=== PATIENT | female | born 1960 | race African-American/Black ===

== ENCOUNTER 2017-04-05 16:19 | Emergency (ER) | payer MEDICAID ==
--- NOTE | 2017-04-05 16:43 | ER Document Report ---
ED General - General Stated Complaint: POSSIBLE SEIZURE Time Seen by Provider: 04/05/17 16:27 Mode of Arrival: Medic Information source: Patient, Relative Notes: This is a 56-year-old female with a history of metastatic colon CA (currently receiving chemotherapy: Dr. Coon) and is brought in by EMS after possible seizure. Patient was with her friend at the time and states that patient was visiting her was sitting down talking and having a munir when the patient developed sweating and then started shaking and was unresponsive for 30-40 seconds. The patient's friend states that the patient was confused afterwards but that gradually cleared. They called EMS. Denies any headache, fever, chills, nausea vomiting. The patient's friend states they were having a stressful conversation beforehand TRAVEL OUTSIDE OF THE [place] IN LAST 30 DAYS: No - HPI Onset: Just prior to arrival Onset/Duration: Sudden Quality of pain: No pain Severity: None Pain Level: Denies Associated symptoms: denies: Chest pain, Fever, Shortness of breath Exacerbated by: Denies Relieved by: Denies Similar symptoms previously: No Recently seen / treated by doctor: Yes - Related Data Allergies/Adverse Reactions: No Known Allergies Allergy (Verified 05/25/16 03:36) Past Medical History - General Information source: Patient - Social History Smoking Status: Never Smoker Cigarette use (# per day): No Chew tobacco use (# tins/day): No Frequency of alcohol use: None Drug Abuse: None Lives with: Family Family History: Reviewed & Not Pertinent Patient has suicidal ideation: No Patient has homicidal ideation: No - Past Medical History Cardiac Medical History: Reports: Hx Hypertension Denies: Hx Coronary Artery Disease, Hx Heart Attack Pulmonary Medical History: Denies: Hx Asthma, Hx Bronchitis, Hx COPD, Hx Pneumonia Neurological Medical History: Reports: Hx Seizures. Denies: Hx Cerebrovascular Accident Musculoskeltal Medical History: Denies Hx Arthritis Past Surgical History: Reports: Hx Section, Hx Kidney (Renal Surgery) - stents. Denies: Hx Hysterectomy - Immunizations Immunizations up to date: No Hx Diphtheria, Pertussis, Tetanus Vaccination: No Review of Systems - Review of Systems Constitutional: denies: Chills, Fever EENT: No symptoms reported Cardiovascular: No symptoms reported Respiratory: No symptoms reported Gastrointestinal: No symptoms reported Genitourinary: No symptoms reported Female Genitourinary: No symptoms reported Musculoskeletal: No symptoms reported Skin: No symptoms reported Hematologic/Lymphatic: No symptoms reported Neurological/Psychological: See HPI Physical Exam - Vital signs Vitals: Temp 98.7 F 04/05/17 16:27 Notes: Physical exam: GENERAL: 6-year-old female, alert and oriented 3, no acute distress HEAD: Atraumatic, normocephalic. EYES: Pupils equal round and reactive to light, extraocular movements intact, sclera anicteric, conjunctiva are normal. ENT: TMs normal, nares patent, oropharynx clear without exudates. Moist mucous membranes. NECK: Normal range of motion, supple without lymphadenopathy or JVD. LUNGS: Breath sounds clear to auscultation bilaterally and equal. No wheezes rales or rhonchi. HEART: Regular rate and rhythm without murmurs, rubs or gallops. ABDOMEN: Soft, normoactive bowel sounds. His abdomen is distended which is normal for her. There are palpable masses. There is no tenderness palpation o guarding, EXTREMITIES: Normal range of motion, no pitting or edema. No clubbing or cyanosis. NEUROLOGICAL: Cranial nerves II through XII grossly intact. Normal speech, moving all extremities PSYCH: Normal mood, normal affect. SKIN: Warm, Dry, normal turgor, no rashes or lesions noted. Course - Re-evaluation Re-evalutation: 04/05/17 20:[address] Coon is requested an MRI of the brain. The MRI looks good at this point. Patient was given ceftriaxone for a UTI and I will switch her Augmentin (which she was getting her sinus infection) to Cefdenir so that there is coverage for UTI. Magnesium level was 1.5 and she will receive IV magnesium before discharge. The patient has an appointment with Dr. Coon on Friday. - Vital Signs Vital signs: Temp Pulse Resp BP Pulse Ox 98.7 F 23 H 118/86 H 100 04/05/17 16:27 04/05/17 22:01 04/05/17 22:01 04/05/17 22:01 - Laboratory Result Diagrams: 04/05/17 16:45 04/05/17 16:45 Laboratory results interpreted by me: 04/05/17 04/05/17 04/05/17 16:45 16:45 17:18 WBC 18.6 H MCHC 31.5 L RDW 16.5 H Seg Neuts % (Manual) 84 H Lymphocytes % (Manual) 12 L Abs Neuts (Manual) 15.6 H Carbon Dioxide 21 L Est GFR (Non-Af Amer) 58 L Magnesium 1.5 L AST 10 L Urine Protein 100 H Urine Glucose (UA) 50 H Urine Blood LARGE H Ur Leukocyte Esterase MODERATE H Discharge - Discharge Clinical Impression: Seizure, Hypomagnesemia UTI (urinary tract infection) Qualifiers: Urinary tract infection type: acute cystitis Hematuria presence: with hematuria Qualified Code(s): N30.01 - Acute cystitis with hematuria Condition: Stable Disposition: HOME, SELF-CARE Instructions: Urinary Tract Infection ([facility]) Additional Instructions: Given IV ceftriaxone for UTI in the ER. Brain MRI and head CT looked good. The urine analysis showed a urine infection. The labs were relatively good, you did have a low magnesium. Given IV magnesium in the emergency room. Dr. Coon was made aware of your ER visit and she will be expecting to see you this week. Indications: Stop Taking the Augmentin. Start new antibiotic tomorrow. Up with Dr. Coon is planned for Friday The emergency room for any problems If you have any further episodes like this, you may require an antiepileptic medicine(and anti-seizure medicine). Prescriptions: Cefdinir [Omnicef 300 mg Capsule] 1 cap PO BID #14 capsule
--- NOTE | 2017-04-05 17:21 | RADIOLOGY REPORT (SQ) ---
EXAM DESCRIPTION: CT HEAD WITHOUT COMPLETED DATE/TIME: 04/05/2017 5:02 pm REASON FOR STUDY: seizure COMPARISON: 04/14/2016 TECHNIQUE: Axial images acquired through the brain without intravenous contrast. Images reviewed wi th bone, brain and subdural windows. Images stored on PACS. All CT scanners at this facility use dose modulation, iterative reconstruction, and/or weight based d osing when appropriate to reduce radiation dose to as low as reasonably achievable (ALARA). [facility]: Dose Right [facility]: CareDose [facility]: Dose Right [facility]: Teradose 4D [facility]: [employer] RADIATION DOSE: Up-to-date CT equipment and radiation dose reduction techniques were employed. CTDIv ol: 64.6 mGy. DLP: 1163 mGy-cm. mGy. LIMITATIONS: None. FINDINGS: VENTRICLES: Normal size and contour. CEREBRUM: No masses. No hemorrhage. No midline shift. Normal sherwood/white matter differentiation. N o evidence for acute infarction. CEREBELLUM: No masses. No hemorrhage. No alteration of density. No evidence for acute infarction. EXTRAAXIAL SPACES: No fluid collections. No masses. ORBITS AND GLOBE: No intra- or extraconal masses. Normal contour of globe without masses. CALVARIUM: No fracture. PARANASAL SINUSES: No fluid or mucosal thickening. Re- demonstration of chronic right-sided mastoid effusion. SOFT TISSUES: No mass or hematoma. OTHER: Incidental note is made of atherosclerotic vascular calcifications within the cavernous segmen ts of the internal carotid arteries. IMPRESSION: Stable CT appearance of the brain. No evidence of acute intracranial abnormality. TECHNICAL DOCUMENTATION: JOB ID: [id number] Quality ID # [id number]: Final reports with documentation of one or more dose reduction techniques (e.g., Au tomated exposure control, adjustment of the mA and/or kV according to patient size, use of iterative reconstruction technique) 2010 [employer]- All Rights Reserved
[2017-04-05 17:23] LABS: HEMATOCRIT 38.9 % (36.0-47.0); HEMOGLOBIN 12.2 g/dL (12.0-15.5); HGB HCT DIFFERENCE -2.3; MEAN CORPUSCULAR HEMOGLOBIN 27.5 pg (27.0-33.4); MEAN CORPUSCULAR HGB CONC 31.5 g/dL (32.0-36.0); MEAN CORPUSCULAR VOLUME 87 fl (80-97); RED BLOOD COUNT 4.46 10^6/uL (3.72-5.28); RED CELL DISTRIBUTION WIDTH 16.5 % (11.5-14.0); WHITE BLOOD COUNT 18.6 10^3/uL (4.0-10.5)
--- NOTE | 2017-04-05 17:38 | RADIOLOGY REPORT (SQ) ---
EXAM DESCRIPTION: CHEST SINGLE VIEW COMPLETED DATE/TIME: 04/05/2017 5:05 pm REASON FOR STUDY: seizure COMPARISON: None. EXAM PARAMETERS: NUMBER OF VIEWS: One view. TECHNIQUE: Single frontal radiographic view of the chest acquired. RADIATION DOSE: NA LIMITATIONS: None. FINDINGS: LUNGS AND PLEURA: No opacities, masses or pneumothorax. No pleural effusion. The left hem idiaphragm is slightly elevated. MEDIASTINUM AND HILAR STRUCTURES: No masses. Contour normal. HEART AND VASCULAR STRUCTURES: Heart normal in size. Normal vasculature. BONES: No acute findings. HARDWARE: A left anterior chest wall Port-A-Cath appears stable in position, terminating in the regio n of the superior vena cava. OTHER: No other significant finding. IMPRESSION: NO ACUTE RADIOGRAPHIC FINDING IN THE CHEST. TECHNICAL DOCUMENTATION: JOB ID: [id number]
[2017-04-05 17:45] LABS: ALANINE AMINOTRANSFERASE 15 U/L (9-52); ALBUMIN 3.6 g/dL (3.5-5.0); ALKALINE PHOSPHATASE 93 U/L (38-126); ANION GAP 13 (5-19); ASPARTATE AMINO TRANSFERASE 10 U/L (14-36); BILIRUBIN,DIRECT 0.3 mg/dL (0.0-0.4); BILIRUBIN,TOTAL 0.7 mg/dL (0.2-1.3); BLOOD UREA NITROGEN 19 mg/dL (7-20); CALCIUM 9.1 mg/dL (8.4-10.2); CARBON DIOXIDE 21 mmol/L (22-30); CHLORIDE 107 mmol/L (98-107); CREATININE RESULT 0.98 mg/dL (0.52-1.25); GLUCOSE 81 mg/dL (75-110); MAGNESIUM 1.5 mg/dL (1.6-2.3); POTASSIUM 3.7 mmol/L (3.6-5.0); SODIUM 140.7 mmol/L (137-145); TOTAL PROTEIN 6.8 g/dL (6.3-8.2)
[2017-04-05 17:46] LABS: ALCOHOL < 10 mg/dL (NONE DETECTED); BASOPHILS % (MANUAL) 0 % (0-2); EOSINOPHILS % (MANUAL) 1 % (0-6); LYMPHOCYTES % (MANUAL) 12 % (13-45); TOTAL CELLS COUNTED 100
[2017-04-05 17:48] LABS: ANISOCYTOSIS 1+; HYPOCHROMASIA SLIGHT; OVALOCYTES SLIGHT; POIKILOCYTOSIS SLIGHT
[2017-04-05 17:49] LABS: TEAR DROP CELLS SLIGHT
[2017-04-05 18:15] LABS: APPEARANCE,URINE CLOUDY; BILIRUBIN,URINE NEGATIVE (NEGATIVE); GLUCOSE, URINE 50 mg/dL (NEGATIVE); KETONES,URINE NEGATIVE (NEGATIVE); LEUKOCYTE ESTERASE,URINE MODERATE (NEGATIVE); NITRITE,URINE NEGATIVE (NEGATIVE); PROTEIN,URINE 100 mg/dL (NEGATIVE); URINE SPECIFIC GRAVITY 1.023; UROBILINOGEN,URINE NEGATIVE mg/dL (<2.0)
[2017-04-05 18:26] LABS: BACTERIA,URINE 1+ /HPF; RBC,URINE >100 /HPF
[2017-04-05] MEDS ORDERED: CEFTRIAXONE 1 GM/D5W RTU 50 ML IV ONE (18:55)
--- NOTE | 2017-04-05 20:38 | RADIOLOGY REPORT (SQ) ---
EXAM DESCRIPTION: MRI HEAD COMBO COMPLETED DATE/TIME: 04/05/2017 8:22 pm REASON FOR STUDY: colon cancer, new seizure COMPARISON: Noncontrast head CT 04/05/2017 TECHNIQUE: Multiplanar imaging includes noncontrasted T1, T2, FLAIR, and Diffusion with ADC map seq uences. Contrast enhanced T1 images. Images stored on PACS. CONTRAST TYPE AND DOSE: 15 mL MultiHance RENAL FUNCTION: Creatinine 0.98 ; GFR greater than 60 LIMITATIONS: None. FINDINGS: ANATOMY: No anomalies. Normal vascular flow voids. Pituitary fossa normal. CSF SPACES: Normal size and contour. No hemorrhage. CEREBRUM: A few high-signal intensity lesions scattered throughout the white matter on FLAIR imaging with distribution suggesting chronic microvascular ischemic change. Sulci and gyri normal in size and contour. No evidence of hemorrhage, mass or extraaxial fluid collection. No enhancing lesions. POSTERIOR FOSSA: No signal alteration. No hemorrhage. No edema, masses or mass effect. Internal audit ory canals, cerebello-pontine angles normal. Re- demonstration of chronic right mastoid effusion. DIFFUSION: Negative for acute or subacute infarction. ORBITS: No masses. Globes normal. PARANASAL SINUSES: No fluid levels. Mucosa normal. OTHER: No other significant finding. IMPRESSION: NO ENHANCING LESIONS. MINIMAL MICROVASCULAR ISCHEMIC CHANGE. OTHERWISE NORMAL STUDY. TECHNICAL DOCUMENTATION: JOB ID: [id number]- All Rights Reserved
[2017-04-05] MEDS: MAGNESIUM SULFATE/D5W 100 ML IV SCH ×2 (21:01→21:58)
[2017-04-05 23:25] VITALS: BP 127/89
== END 2017-04-05 23:31 | disposition home or self-care (01) ==
LOC: ER 16:19
DX: N30.01 Acute cystitis with hematuria (principal); R56.9 Unspecified convulsions; E83.42 Hypomagnesemia; Z85.038 Personal history of other malignant neoplasm of large intestine; Z79.899 Other long term (current) drug therapy
CPT/HCPCS: 99285; 96375; 96365; 96367; 36415; 80307; 83735; 85025; 80053; 81001; 70553; 71010; 70450; A9577; J3475; J0696

== ENCOUNTER 2017-06-21 15:45 | Inpatient (IN) | payer MEDICAID ==
[2017-06-21] MEDS ORDERED: NORMAL SALINE 1000 ML 1,000 ML IV ONE ×2 (16:01→17:49)
--- NOTE | 2017-06-21 16:03 | ER Document Report ---
ED Medical Screen (RME) - General Chief Complaint: Fainting Stated Complaint: FAINTED Time Seen by Provider: 06/21/17 16:00 Mode of Arrival: Wheelchair Information source: Patient, Relative TRAVEL OUTSIDE OF THE [place] IN LAST 30 DAYS: No - HPI Patient complains to provider of: syncope Onset: This afternoon - pt with syncopal episode earlier this afternoon while in the shower. She feels much better now, just "a little shaky." Pt. received chemo yesterday for colon ca - Related Data Allergies/Adverse Reactions: No Known Allergies Allergy (Verified 06/21/17 15:55) Past Medical History - Past Medical History Cardiac Medical History: Reports: Hx Hypertension Denies: Hx Coronary Artery Disease, Hx Heart Attack Pulmonary Medical History: Denies: Hx Asthma, Hx Bronchitis, Hx COPD, Hx Pneumonia Neurological Medical History: Reports: Hx Seizures. Denies: Hx Cerebrovascular Accident Renal/ Medical History: Denies: Hx Peritoneal Dialysis Musculoskeltal Medical History: Denies Hx Arthritis Past Surgical History: Reports: Hx Section, Hx Kidney (Renal Surgery) - stents. Denies: Hx Hysterectomy - Immunizations Immunizations up to date: No Hx Diphtheria, Pertussis, Tetanus Vaccination: No Physical Exam - Vital signs Vitals: Temp Pulse Resp BP Pulse Ox 98.9 F 98 20 131/94 H 94 06/21/17 15:56 06/21/17 15:56 06/21/17 15:56 06/21/17 15:56 06/21/17 15:56 Course - Vital Signs Vital signs: Temp Pulse Resp BP Pulse Ox 98.9 F 98 20 131/94 H 94 06/21/17 15:56 06/21/17 15:56 06/21/17 15:56 06/21/17 15:56 06/21/17 15:56
[2017-06-21 16:29] LABS: HEMATOCRIT 39.6 % (36.0-47.0); HEMOGLOBIN 12.7 g/dL (12.0-15.5); HGB HCT DIFFERENCE -1.5; MEAN CORPUSCULAR HGB CONC 32.2 g/dL (32.0-36.0); MEAN CORPUSCULAR VOLUME 87 fl (80-97); RED BLOOD COUNT 4.55 10^6/uL (3.72-5.28); WHITE BLOOD COUNT 17.6 10^3/uL (4.0-10.5)
[2017-06-21 16:41] LABS: ALANINE AMINOTRANSFERASE 11 U/L (9-52); ALBUMIN 4.1 g/dL (3.5-5.0); ALKALINE PHOSPHATASE 126 U/L (38-126); ANION GAP 16 (5-19); ASPARTATE AMINO TRANSFERASE 11 U/L (14-36); BILIRUBIN,DIRECT 0.3 mg/dL (0.0-0.4); BILIRUBIN,TOTAL 0.7 mg/dL (0.2-1.3); BLOOD UREA NITROGEN 26 mg/dL (7-20); CALCIUM 9.7 mg/dL (8.4-10.2); CARBON DIOXIDE 23 mmol/L (22-30); CHLORIDE 102 mmol/L (98-107); CREATININE RESULT 0.98 mg/dL (0.52-1.25); GLUCOSE 95 mg/dL (75-110); TOTAL PROTEIN 7.2 g/dL (6.3-8.2)
[2017-06-21 16:43] LABS: CREATINE KINASE < 20 U/L (30-135)
--- NOTE | 2017-06-21 16:52 | ER Document Report ---
ED General - General Chief Complaint: Fainting Stated Complaint: FAINTED Time Seen by Provider: 06/21/17 16:00 Mode of Arrival: Wheelchair TRAVEL OUTSIDE OF THE [place] IN LAST 30 DAYS: No - HPI Notes: Patient is a 56-year-old female with history of colon cancer and hypertension who presents the ED with a possible syncopal episode prior to arrival. Patient states that she did have a chemo session 2 days ago, but has been feeling all right since then. Patient states that she was outside when she started feeling dizzy & chilled. Patient then went up to her bathroom to take a shower when she got even more dizzy and believes she may have lost consciousness. Patient states that she remembers starting to go down and then yelling for help thereafter. Patient was sitting against her tub. Pt is not aware of any head/ neck injury and does not have any reported pain. Pt's sister and son helped her off of the floor. Pt was then shaky when she was ambulating and they brought her to the ED. Pt continued to be shaky per her relatives and they had to help her with ambulation. Pt states that laying down she is asymptomatic for any dizziness. Pt states that she is still eating/drinking without any difficulties. She is having normal BM's and urinary habits. Pt states that she has had a couple previous episodes with syncope with unremarkable work ups in the past. Her PCM is kailash Ojeda. She does see Dr. Coon for her colon CA. Denies any headache, fever, neck pain/stiffness, changes in vision/speech/ mentation/hearing, URI, sore throat, chest pain, palpitations, syncope, cough, shortness of breath, wheeze, dyspnea, abdominal pain, nausea/vomiting/diarrhea, urinary retention, dysuria, hematuria, loss of control of bowel or bladder, numbness/tingling, saddle anesthesia, muscle paralysis/weakness, or rash. - Related Data Allergies/Adverse Reactions: No Known Allergies Allergy (Verified 06/21/17 15:55) Past Medical History - General Information source: Patient, Relative - Social History Smoking Status: Never Smoker Chew tobacco use (# tins/day): No Frequency of alcohol use: None Drug Abuse: None Family History: Reviewed & Not Pertinent - Past Medical History Cardiac Medical History: Reports: Hx Hypertension Denies: Hx Coronary Artery Disease, Hx Heart Attack Pulmonary Medical History: Denies: Hx Asthma, Hx Bronchitis, Hx COPD, Hx Pneumonia Neurological Medical History: Reports: Hx Seizures. Denies: Hx Cerebrovascular Accident Renal/ Medical History: Denies: Hx Peritoneal Dialysis Musculoskeltal Medical History: Denies Hx Arthritis Past Surgical History: Reports: Hx Section, Hx Kidney (Renal Surgery) - stents. Denies: Hx Hysterectomy - Immunizations Immunizations up to date: No Hx Diphtheria, Pertussis, Tetanus Vaccination: No Review of Systems - Review of Systems Notes: REVIEW OF SYSTEMS: CONSTITUTIONAL : Denies fever, chills, or sweats. Denies recent illness. EENT: Denies eye, ear, throat, or mouth pain or symptoms. Denies nasal or sinus congestion or discharge. Denies throat, tongue, or mouth swelling or difficulty swallowing. CARDIOVASCULAR: Denies chest pain. Denies palpitations or racing or irregular heart beat. Denies ankle edema. RESPIRATORY: Denies cough, cold, or chest congestion. Denies shortness of breath, difficulty breathing, or wheezing. GASTROINTESTINAL: Denies abdominal pain or distention. Denies nausea, vomiting , or diarrhea. Denies blood in vomitus, stools, or per rectum. Denies black, tarry stools. Denies constipation. GENITOURINARY: Denies difficulty urinating, painful urination, burning, frequency, blood in urine, or discharge. MUSCULOSKELETAL: Denies back or neck pain or stiffness. Denies joint pain or swelling. SKIN: Denies rash, lesions or sores. NEUROLOGICAL: see hpi. Denies confusion or altered mental status. Denies headache. Denies weakness or paralysis or loss of use of either side. Denies problems with gait or speech. Denies sensory loss, numbness, or tingling. Denies seizures. PSYCHIATRIC: Denies anxiety or stress. Denies depression, suicidal ideation, or homicidal ideation. ALL OTHER SYSTEMS REVIEWED AND NEGATIVE. Dictation was performed using [employer] voice recognition software Physical Exam - Vital signs Vitals: Temp Pulse Resp BP Pulse Ox 98.9 F 98 20 131/94 H 94 06/21/17 15:56 06/21/17 15:56 06/21/17 15:56 06/21/17 15:56 06/21/17 15:56 Notes: PHYSICAL EXAMINATION: GENERAL: Well-appearing, well-nourished and in no acute distress. A&Ox4. Pt laughing, joking, and smiling. Moves all extremities w/o difficulty. HEAD: Atraumatic, normocephalic. Non-tender. No diaz sign EYES: Pupils equal round and reactive to light, extraocular movements intact, sclera anicteric, conjunctiva are normal. No raccoon eyes/entrapment ENT: EAC clear b/l. TM's intact b/l without erythema, fluid, or perforation. Nares patent and without discharge. oropharynx clear without exudates. No tonsilar hypertrophy or erythema. Moist mucous membranes. No sinus tenderness. No hemotympanum/CSF discharge. NECK: Normal range of motion, supple without lymphadenopathy. No rigidity. No midline tenderness. Spurling negative. NEXUS negative. Chest: No flail chest. equal rise/fall. Non-tender LUNGS: Breath sounds clear to auscultation bilaterally and equal. No wheezes rales or rhonchi. HEART: Regular rate and rhythm without murmurs, rubs, gallops. ABDOMEN: Soft, nontender, nondistended abdomen. No guarding, no rebound. Normal bowel sounds present. No CVA tenderness bilaterally. Musculoskeletal: Ext b/l: FROM to passive/active. Strength 5+/5. No deficits noted. No bony tenderness of extremities. Back: FROM to passive/active. Strength 5+/5. No vertebral point tenderness, stepoffs, or deformities. No other bony tenderness or ecchymosis. SLR negative b/l. Extremities: No cyanosis, clubbing, or edema b/l. Peripheral pulses 2+. Capillary refill less than 2 seconds. NEUROLOGICAL: MMSE intact. Cranial nerves grossly intact. Normal speech, normal gait. Normal sensory, motor exams. Reflexes 2+ b/l. ZAHRA's negative. Pronator drift negative. Heel/paris, finger/nose wnl. Walking on heels/toes and heel to toe wnl. PSYCH: Normal mood, normal affect. SKIN: Warm, Dry, normal turgor, no rashes or lesions noted. Course - Re-evaluation Re-evalutation: 06/21/17 19:[address] Trevino who is in agreement with admit/plan: Patient is an afebrile, well-hydrated, 56-year-old female who presents to the ED with a urinary infection and pyelonephritis based on urine dip today. Those are stable. PE otherwise unremarkable at this time for any focal neurological deficits. CBC had a white count of 17.6. CMP was unremarkable for acute pathology. Magnesium unremarkable as well as cardiac enzymes/EKG were unremarkable. Chest x-ray and CT scan of the head were also unremarkable for any acute pathology. Lactic and BC's pending. Patient began vomiting 2 while in the ED. Zofran 4 mg given IV along with 1 L normal saline. Rocephin 1 g IV was started. I did notify Dr. Coon about the patient's case and her pending admission. Reviewed case with Dr. Wang who accepted patient. Pt is in agreement with admit/plan. - Vital Signs Vital signs: Temp Pulse Resp BP Pulse Ox 99.4 F 98 14 146/83 H 100 06/21/17 19:10 06/21/17 15:56 06/21/17 18:23 06/21/17 18:23 06/21/17 17:20 - Laboratory Result Diagrams: 06/21/17 16:15 06/21/17 16:15 Laboratory results interpreted by me: 06/21/17 06/21/17 06/21/17 16:15 16:15 18:00 WBC 17.6 H RDW 17.0 H Seg Neuts % (Manual) 84 H Band Neutrophils % 2 L Lymphocytes % (Manual) 11 L Abs Neuts (Manual) 15.1 H BUN 26 H Est GFR (Non-Af Amer) 58 L AST 11 L Creatine Kinase < 20 L Urine Protein 100 H Urine Blood LARGE H Ur Leukocyte Esterase LARGE H Discharge - Discharge Clinical Impression: Pyelonephritis UTI (urinary tract infection) Qualifiers: Urinary tract infection type: site unspecified Hematuria presence: without hematuria Qualified Code(s): N39.0 - Urinary tract infection, site not specified Episode of syncope Qualifiers: Syncope type: unspecified Qualified Code(s): R55 - Syncope and collapse Condition: Stable Disposition: ADMITTED INPATIENT Admitting Provider: Hospitalist - Dr. Wang Unit Admitted: Telemetry Referrals: CHRISTINA BALDWIN MD [Primary Care Provider] - Follow up as needed
[2017-06-21 16:53] LABS: BAND NEUTROPHILS % (MANUAL) 2 % (3-5); BASOPHILS % (MANUAL) 0 % (0-2); EOSINOPHILS % (MANUAL) 0 % (0-6); LYMPHOCYTES % (MANUAL) 11 % (13-45); TOTAL CELLS COUNTED 100
[2017-06-21 16:54] LABS: ANISOCYTOSIS 1+; HYPOCHROMASIA SLIGHT
[2017-06-21 16:55] LABS: CREATINE KINASE MB < 0.22 ng/mL (<4.55); TROPONIN I < 0.012 ng/mL
[2017-06-21 17:56] LABS: ADD ON TESTING BLD IN LAB ACKNOWLEDGE
--- NOTE | 2017-06-21 17:58 | RADIOLOGY REPORT (SQ) ---
EXAM DESCRIPTION: CT HEAD WITHOUT COMPLETED DATE/TIME: 06/21/2017 5:17 pm REASON FOR STUDY: possible syncopal episode, fall COMPARISON: 04/05/[address] imaging TECHNIQUE: Axial images acquired through the brain without intravenous contrast. Images reviewed wi th bone, brain and subdural windows. Images stored on PACS. All CT scanners at this facility use dose modulation, iterative reconstruction, and/or weight based d osing when appropriate to reduce radiation dose to as low as reasonably achievable (ALARA). [facility]: Dose Right [facility]: CareDose [facility]: Dose Right [facility]: Teradose 4D [facility]: [employer] RADIATION DOSE: Up-to-date CT equipment and radiation dose reduction techniques were employed. CTDIv ol: 64.6 mGy. DLP: 1163 mGy-cm. mGy. LIMITATIONS: None. FINDINGS: VENTRICLES: Normal size and contour. CEREBRUM: No masses. No hemorrhage. No midline shift. No evidence for acute infarction. Normal gra y/white matter differentiation. No areas of low density in the white matter. CEREBELLUM: No masses. No hemorrhage. No alteration of density. No evidence for acute infarction. EXTRAAXIAL SPACES: No fluid collections. No masses. ORBITS AND GLOBE: No intra- or extraconal masses. Normal contour of globe without masses. CALVARIUM: No fracture. PARANASAL SINUSES: Chronic right mastoid effusion and sclerosis. SOFT TISSUES: No mass or hematoma. OTHER: Note is made of atherosclerotic vascular calcifications within the cavernous segments of the i nternal carotid arteries. IMPRESSION: Stable CT appearance of the brain. No evidence of acute calvarial injury or intracrania l hemorrhage. COMMENT: Quality ID # [id number]: Final reports with documentation of one or more dose reduction techniques (e.g., Automated exposure control, adjustment of the mA and/or kV according to patient size, use of iterative reconstruction technique) TECHNICAL DOCUMENTATION: JOB ID: [id number] [employer]- All Rights Reserved
--- NOTE | 2017-06-21 18:00 | RADIOLOGY REPORT (SQ) ---
EXAM DESCRIPTION: CHEST SINGLE VIEW COMPLETED DATE/TIME: 06/21/2017 5:23 pm REASON FOR STUDY: possible syncopal episode COMPARISON: 04/05/2017 EXAM PARAMETERS: NUMBER OF VIEWS: One view. TECHNIQUE: Single frontal radiographic view of the chest acquired. RADIATION DOSE: NA LIMITATIONS: None. FINDINGS: LUNGS AND PLEURA: No opacities, masses or pneumothorax. No pleural effusion. MEDIASTINUM AND HILAR STRUCTURES: No masses. Contour normal. HEART AND VASCULAR STRUCTURES: Heart normal in size. Normal vasculature. BONES: No acute findings. HARDWARE: Left anterior chest wall Port-A-Cath appears stable in position, terminating in the region of the superior vena cava. OTHER: No other significant finding. IMPRESSION: NO ACUTE RADIOGRAPHIC FINDING IN THE CHEST. TECHNICAL DOCUMENTATION: JOB ID: [id number]
[2017-06-21 18:10] LABS: MAGNESIUM 1.6 mg/dL (1.6-2.3)
[2017-06-21 18:19] LABS: APPEARANCE,URINE CLOUDY; BILIRUBIN,URINE NEGATIVE (NEGATIVE); CALCIUM OXALATE CRYSTALS,URINE FEW /HPF; GLUCOSE, URINE NEGATIVE (NEGATIVE); KETONES,URINE NEGATIVE (NEGATIVE); LEUKOCYTE ESTERASE,URINE LARGE (NEGATIVE); NITRITE,URINE NEGATIVE (NEGATIVE); PROTEIN,URINE 100 mg/dL (NEGATIVE); URINE SPECIFIC GRAVITY 1.015; UROBILINOGEN,URINE NEGATIVE mg/dL (<2.0)
[2017-06-21] MEDS ORDERED: ONDANSETRON HCL INJ/PF 4 MG/2 ML SDV IV ONE (18:29)
[2017-06-21] MEDS ORDERED: CEFTRIAXONE 1 GM/D5W RTU 1 GM/50 ML RTUPB IV ONE (18:34)
--- NOTE | 2017-06-21 20:25 | EKG REPORT ---
SEVERITY:- NORMAL ECG - SINUS RHYTHM : Confirmed by: Willy Troncoso MD 21-Jun-2017 20:24:37
[2017-06-21] MEDS ORDERED: DEXTROSE 5%-NORMAL SALINE 1,000 ML IV PRN (20:43)
[2017-06-21] MEDS ORDERED: MAGNESIUM HYDROXIDE SUSP 30 ML UDCUP PO PRN (20:45)
[2017-06-21] MEDS ORDERED: ACETAMINOPHEN 325 MG TABLET PO PRN (20:50)
[2017-06-21] MEDS ORDERED: PROMETHAZINE HCL 25 MG TABLET PO PRN (20:50)
--- NOTE | 2017-06-21 21:01 | PDOC H&P ---
History of Present Illness Admission Date/PCP: 06/21/17 19:25 Onco [place] Patient complains of: Syncope History of Present Illness: ISIS GATES is a 56 year old -[place] female with underlying mild anxiety and depression, without suicidal or homicidal ideation, currently undergoing chemotherapy, with last session 2 days ago, for stage IV colon cancer , who presents to the emergency room for evaluation of above complaint. Patient has been discussed with emergency room nurse practitioner who evaluated the patient. Of note, nurse practitioner did speak with patient's oncologist prior to contacting myself; oncologist agrees with basic plan so far. As patient was getting out of her shower today, she began feeling dizzy and lightheaded, with possibly shaking chills. [place] she had a syncopal episode. Has been stable since coming to the emergency room. Otherwise, no specific complaints, including nausea vomiting, fever or chills, diarrhea or dysuria. No chest or abdominal pain. Perhaps a mild sore throat. Dictation via voice recognition software. Laboratory results are listed in [employer] and are reviewed. X-ray summary results are listed below, with full report(s) reviewed. . EKG reviewed. Social history/personal habits: Single. Adult children. Sister lives with patient. No tobacco or illicit drug use. 3 wine coolers per week. No known drug allergies. Home medications none REVIEW OF SYSTEMS: Constitutional: See history and present illness. Eyes: Reading glasses. ENT: No swallowing problems or complaints. Denies hearing loss. Pulmonary: No current complaints. Cardiovascular: See history and present illness. Gastrointestinal: No current complaints, including nausea or vomiting. Skin: No current complaints, including rashes. Hematologic: Denies easy bruising. Neurologic: No current complaints, including numbness or tingling. Musculoskeletal: No current or chronic joint complaints, such as arthritis. Psychiatric: Mild anxiety and depression. Denies suicidal or homicidal ideation. Endocrine: No current complaints, including polyuria. Genitourinary: No current complaints, including dysuria. 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 5 feet 4 inches tall. 72.4 kg. BMI 27.4 kg/m. Blood pressure 142/92. Pulse 95 and regular. 100% saturation on room air. Respirations are 18 and unlabored. Temperature 99.4. Slightly overweight otherwise well-nourished well-developed -[place] female appearing perhaps a bit older than her stated age. Pleasant awake alert and cooperative. Somewhat anxious, although no hoda agitation. Quite talkative. Skin is warm and dry. No grossly obvious evidence of rash in areas of skin examined. No subcutaneous nodules palpated. ENT: Hearing grossly normal to normal conversation. Tongue midline on protrusion pink and slightly moist. Unremarkable oropharynx exam. Eyes: No scleral icterus. Pupils equal and reactive to light at 4 mm. [place] conjunctivae. No raccoon eyes. Neck is supple and nontender to gentle active range of motion and palpation. Midline trachea. No palpable thyroid nodule mass enlargement or tenderness. Lymphatic: No palpable cervical or clavicular nodes. Neck and lymphatic exams limited by patient body habitus. Psychiatric: Reasonable insight into acute and chronic medical issues. Oriented to time location and why here. Lungs: Auscultation reveals clear and equal breath sounds bilaterally. No use of accessory respiratory muscles. Cardiovascular: Heart regular rate and rhythm, without gallop or rub. No carotid or abdominal aortic bruits. No ankle or pedal edema. Delete palpable dorsalis pedis pulses. Subtle 1/6 holosystolic ejection murmur heard at cardiac apex. Abdomen:soft slightly distended nontender with positive bowel sounds. Unable to adequately evaluate abdomen for masses or organomegaly due to distention. Extremities: Feet are warm and dry. No calf tenderness to compression. No grossly obvious visual evidence of calf swelling. Gentle manipulation of lower extremities fails to reveal any obvious evidence of injury or instability to knees hips or ankles. Neurologic: Moves upper extremities grossly normally. Patellar reflexes absent. Absent Babinski. Light touch is intact at feet. Dorsiflexion and plantarflexion of feet 5 / 5 and symmetric. Past Medical History Cardiac Medical History: Denies: Atrial Fibrillation, Congestive Heart Failure, Coronary Artery Disease, DVT, Myocardial Infarction, Hyperlipidema, Hypertension, Pulmonary Embolism Pulmonary Medical History: Denies: Asthma, Bronchitis, Chronic Obstructive Pulmonary Disease (COPD), Pneumonia, Sleep Apnea EENT Medical History: Reports: Eyes - Reading glasses Denies: Ears, Throat Neurological Medical History: Reports: Seizures - Last episode 1 or 2 years ago. Never on antiepileptic. Denies: Hemorrhagic CVA, Ischemic CVA Endocrine Medical History: Denies: Diabetes Mellitus Type 1, Diabetes Mellitus Type 2, Hyperthyroidism, Hypothyroidism Renal/ Medical History: Reports: Other - Prior ureteral stent implant for hydronephrosis secondary to tumor Malignancy Medical History: Reports: Colorectal Cancer - Stage IV GI Medical History: Reports: Other - Liver metastases from colon primary Denies: Cirrhosis, Gastroesophageal Reflux Disease, Hepatitis, Peptic Ulcer Disease Musculoskeltal Medical History: Denies: Arthritis Skin Medical History: Reports: None Psychiatric Medical History: Reports: Depression, General Anxiety Disorder Denies: Alcohol Dependency, Substance Abuse, Tobacco Dependency Hematology: Denies: Anemia Infectious Medical History: Denies: Hepatitis B, Hepatitis C Past Surgical History Past Surgical History: Reports: Section, Other - Ureteral stent implants for hydronephrosis secondary to tumor mass Social History Information Source: Patient, Emergency Med Personnel, [facility] Records Lives with: Family Smoking Status: Never Smoker Frequency of Alcohol Use: Social Hx Recreational Drug Use: No Drugs: None Hx Prescription Drug Abuse: No - Advance Directive Resuscitation Status: Full Code Surrogate healthcare decision maker:: Daughter Isis Gates Family History Family History: Reviewed & Not Pertinent Parental Family History Reviewed: Yes - Father of prostate cancer; uncertain cause of mother's . Children Family History Reviewed: Yes - Hypertension Sibling(s) Family History Reviewed.: Yes - Hypertension Medication/Allergy Home Medications: Ondansetron HCl [Zofran 4 mg Tablet] 4 mg PO Q6H PRN 05/25/16 Cefdinir [Omnicef 300 mg Capsule] 1 cap PO BID #14 capsule 04/05/17 Allergies/Adverse Reactions: No Known Allergies Allergy (Verified 06/21/17 15:55) Physical Exam Vital Signs: Temp Pulse Resp BP Pulse Ox 99.4 F 98 22 H 142/92 H 99 06/21/17 19:10 06/21/17 15:56 06/21/17 20:03 06/21/17 20:03 06/21/17 20:02 Results Laboratory Results: 06/21/17 20:12 Lactic Acid 1.5 Impressions: Head CT 06/21/17 16:45 IMPRESSION: Stable CT appearance of the brain. No evidence of acute calvarial injury or intracranial hemorrhage. Chest X-Ray 06/21/17 16:46 IMPRESSION: NO ACUTE RADIOGRAPHIC FINDING IN THE CHEST. Assessment & Plan - Diagnosis (1) Immunosuppressed due to chemotherapy Is this a current diagnosis for this admission?: Yes (2) Syncope and collapse Is this a current diagnosis for this admission?: Yes Plan: Orthostatic vital signs every 4 hours while awake, starting 7 AM tomorrow. One more liter of IV fluid. (3) UTI (urinary tract infection) Qualifiers: Urinary tract infection type: site unspecified Is this a current diagnosis for this admission?: Yes Plan: Cefepime. Blood and urine cultures. I have strongly encouraged patient not to get out of bed without notifying staff , to avoid a fall with injury. Knee high SCDs for DVT prophylaxis, along with subcutaneous Lovenox. Impression and plans were discussed with patient, who concurs. Time spent in evaluation and management of patient: 65 minutes. (4) Stage IV carcinoma of colon Is this a current diagnosis for this admission?: Yes - Time Time Spent: 50 to 70 Minutes Medications reviewed and adjusted accordingly: Yes Anticipated discharge: Home Within: within 72 hours - Inpatient Certification Based on my medical assessment, after consideration of the patient's comorbidities, presenting symptoms, or acuity I expect that the services needed warrant INPATIENT care.: Yes I certify that my determination is in accordance with my understanding of Medicare's requirements for reasonable and necessary INPATIENT services [42 CFR 412.3e].: Yes Medical Necessity: Significant Comorbidiites Make Outpatient Treatment Too Risky , Need Close Monitoring Due to Risk of Patient Decompensation, Need For IV Fluids, Need for IV Antibiotics, Risk of Complication if Not Cared For in Hospital Post Hospital Care: D/C or Transfer Summary
[2017-06-21] MEDS ORDERED: CEFEPIME 1 GM/D5W RTU 1 GM/50 ML RTUPB IV ONE (21:15)
[2017-06-22 05:00] LABS: HEMATOCRIT 30.9 % (36.0-47.0); MEAN CORPUSCULAR HEMOGLOBIN 28.7 pg (27.0-33.4); MEAN CORPUSCULAR HGB CONC 33.3 g/dL (32.0-36.0); MEAN CORPUSCULAR VOLUME 86 fl (80-97); RED BLOOD COUNT 3.58 10^6/uL (3.72-5.28); RED CELL DISTRIBUTION WIDTH 16.5 % (11.5-14.0); WHITE BLOOD COUNT 15.4 10^3/uL (4.0-10.5)
[2017-06-22 05:13] LABS: ANION GAP 7 (5-19); BLOOD UREA NITROGEN 20 mg/dL (7-20); CALCIUM 8.8 mg/dL (8.4-10.2); CARBON DIOXIDE 24 mmol/L (22-30); CHLORIDE 111 mmol/L (98-107); CREATININE RESULT 0.83 mg/dL (0.52-1.25); GLUCOSE 110 mg/dL (75-110); POTASSIUM 3.5 mmol/L (3.6-5.0); SODIUM 142.2 mmol/L (137-145)
[2017-06-22 05:31] LABS: HEMOGLOBIN 10.3 g/dL (12.0-15.5)
[2017-06-22 05:45] LABS: BASOPHILS % (MANUAL) 1 % (0-2); EOSINOPHILS % (MANUAL) 1 % (0-6); LYMPHOCYTES % (MANUAL) 14 % (13-45); TOTAL CELLS COUNTED 100
[2017-06-22 05:47] LABS: ANISOCYTOSIS 1+; OVALOCYTES SLIGHT; POIKILOCYTOSIS SLIGHT; SCHISTOCYTES 1+; TOXIC GRANULATION 1+
[2017-06-22] MEDS ORDERED: POTASSI CL 40 MEQ/NS 1L 1,000 ML IV PRN (08:36)
[2017-06-22] MEDS ORDERED: ONDANSETRON 4 MG TAB.RAPDIS PO PRN (08:36)
[2017-06-22] MEDS: CEFEPIME 1 GM/D5W RTU 1 GM/50 ML RTUPB IV SCH ×2 (09:05→22:59)
[2017-06-22] MEDS: DOCUSATE SODIUM 100 MG CAPSULE PO SCH ×2 (09:05→18:41)
[2017-06-22] MEDS: ENOXAPARIN SODIUM INJ 40 MG/0.4 ML DISP.SYRIN SUBCUT SCH (09:05)
--- NOTE | 2017-06-22 09:33 | PROGRESS NOTE E ---
Progress Note NAME: ISIS GATES : 1960 AGE: 56Y DATE: 06/22/2017 ROOM: 529 SUBJECTIVE: The patient is currently lying up in bed. She has completed a clear liquid breakfast. She states that she feels better this morning. Still dizzy when she gets up, is requiring help to the get to the bathroom, but overall feels improved. The patient denies any nausea, vomiting this morning. No diarrhea, shortness of breath, dizziness, chest pain. No fever or chills. The patient has been afebrile. Her blood pressures have been in a good range and the patient does not voice any other concerns at this time. BRIEF HISTORY: The patient is a 56-year-old female with a past medical history of metastatic colon cancer. The patient presented to the emergency department with the chief complaint of presyncope episode. Workup revealed a urinary tract infection. The patient four months ago had a ureter stent placement in [place]. The patient has had no issues with this and is actually scheduled at some point this week for an exchange. The patient was admitted to the telemetry unit and was started on cefepime overnight and cultures are pending. REVIEW OF SYSTEMS: Rest of review of systems is negative. MEDICATIONS: Medications have been reviewed. OBJECTIVE: GENERAL: The patient is a 56-year-old female who is awake and alert and oriented to person, place, time and situation. She is verbal and conversational and does to appear to be in any acute distress. VITAL SIGNS FOLLOWS: Temperature 99.0, pulse 76, respirations 18, blood pressure 118/68, oxygen saturation 100% on room air. SKIN: Warm and dry. No rash. She is not diaphoretic. HEENT: Pupils are equal, round, reactive to light and accommodation. Conjunctivae pink. NECK: There is no JVD. CARDIOVASCULAR: Heart is regular. There is no murmur or rub. CHEST: Clear, symmetrical, and unlabored. ABDOMEN: Soft, nontender and nondistended. BACK: No CVA tenderness or sacral edema. EXTREMITIES: No clubbing, cyanosis or edema. PSYCHIATRIC: Appropriate affect, pleasant mood. DIAGNOSTIC DATA: Lab values are as follows: Hematology obtained on 06/22/2017: WBC 15.4, hemoglobin 10.3, hematocrit 30.9, platelet count 214,000. Chemistries obtained on 06/22/2017: Sodium 147, potassium 3.5, chloride 111, carbon dioxide 24, BUN 20, creatinine 0.83, glucose 110, lactic acid 1.5, calcium 8.8, TSH 2.07. Microbiology: Blood and urine cultures obtained from 06/22/2017 are pending. IMPRESSION AND PLAN: 1. URINARY TRACT INFECTION WITH INDWELLING URETERAL STENT. We will continue IV antibiotics at this time, given the patient does have indwelling hardware and await culture and sensitivity and follow the patient, making a good amount of urine and creatinine is normal. 2. SIRS. The patient's white count has trended down slightly. Currently awaiting culture and sensitivity. Upon review of the patient's home medication list, she is also taking Neulasta, so the patient's white count could be attributed to her Neupogen injections. 3. HYPOKALEMIA. This is quite mild. We will replace this. 4. PRESYNCOPE. Most likely secondary to the above. The patient is still a little dizzy. I am going to give her another liter of fluid with supplemented potassium and follow. 5. METASTATIC COLON CANCER. The patient is managed outpatient by Dr. Moreno, is stable at this time. 6. ANEMIA. Most likely of underlying chronic disease. The patient did have a drop in hemoglobin overnight, but this was most likely due to volume. We will monitor closely and repeat CBC in the a.m. 7. HYPERTENSION. The patient's blood pressures have been slightly labile. We will hold any antihypertensive medications today and monitor. 8. DVT PROPHYLAXIS. We will continue subcutaneous Lovenox. DISPOSITION: The patient is a FULL CODE. Pending the patient's symptomatology and diagnostic findings, will re-evaluate in the a.m. TIME SPENT: On this followup including assessment, plan, physical examination, patient education, family meeting, and review of current and previous medical records is 35 minutes. DICTATING PHYSICIAN: RUBINA HERRMANN NP [id number] PHY#: [id number] ID: [id number] JOB#: [id number] ACCT: [id number] cc: >
[2017-06-23] MEDS: CEFEPIME 1 GM/D5W RTU 1 GM/50 ML RTUPB IV SCH ×2 (09:25→21:49)
[2017-06-23] MEDS: DOCUSATE SODIUM 100 MG CAPSULE PO SCH ×2 (09:25→17:38)
[2017-06-23] MEDS: ENOXAPARIN SODIUM INJ 40 MG/0.4 ML DISP.SYRIN SUBCUT SCH (09:26)
[2017-06-23] MEDS ORDERED: MAGNESIUM HYDROXIDE SUSP 30 ML UDCUP PO PRN (15:00)
[2017-06-23] MEDS ORDERED: ONDANSETRON 4 MG TAB.RAPDIS PO PRN (15:00)
[2017-06-23] MEDS ORDERED: POTASSIUM CHLORIDE 10 MEQ TABLET.SA PO ONE (17:34)
--- NOTE | 2017-06-23 17:34 | PDOC PROGRESS REPORT ---
Subjective Progress Note for:: 06/23/17 Subjective:: This is a follow-up visit for urinary tract infection and syncope. Patient was seen at bedside and currently has no complaints. She says that she feels good. Urine cultures are still pending and I have explained this to her. Physical Exam Vital Signs: Temp Pulse Resp BP Pulse Ox 99.5 F 70 17 115/76 100 06/23/17 07:48 06/23/17 07:48 06/23/17 07:48 06/23/17 07:48 06/23/17 07:48 Intake & Output 06/22/17 06/23/17 06/24/17 06:59 06:59 06:59 Intake Total 1500 2290 Output Total 800 Balance 1500 1490 Weight 72.4 kg 79.4 kg GENERAL: This is a well-developed and nourished appearing -[place]yp[place] female resting in bed reading the newspaper in no acute distress. HEART: Regular rate and rhythm. No murmurs, rubs or gallops. LUNGS: Clear to auscultation bilaterally with equal rise and fall of the chest. ABDOMEN: Soft, nontender, nondistended with normoactive bowel sounds EXTREMETIES: No clubbing, cyanosis or edema. 2+ peripheral pulses bilaterally. NEURO: Awake, alert and oriented 3. Cranial nerves II through XII are grossly intact. Results Laboratory Results: 06/22/17 03:51 06/22/17 03:51 Impressions: Head CT 06/21/17 16:45 IMPRESSION: Stable CT appearance of the brain. No evidence of acute calvarial injury or intracranial hemorrhage. Chest X-Ray 06/21/17 16:46 IMPRESSION: NO ACUTE RADIOGRAPHIC FINDING IN THE CHEST. Assessment & Plan - Diagnosis (1) Episode of syncope Qualifiers: Syncope type: unspecified Qualified Code(s): R55 - Syncope and collapse Plan: No further episodes of syncope. The patient states that if she sits up too fast that she might feel a little bit dizzy. She takes her time and feels that she is doing well. (2) UTI (urinary tract infection) Qualifiers: Urinary tract infection type: site unspecified Is this a current diagnosis for this admission?: Yes Plan: Urine cultures are pending. The patient is currently on Rocephin. Will await identification and speciation of any microorganisms. Her urinalysis certainly does appear to be infected. Her white count is trending down slowly. Is now down from 17-15. Blood cultures are still pending but negative to date. (3) Immunosuppressed due to chemotherapy Is this a current diagnosis for this admission?: Yes (4) Stage IV carcinoma of colon Is this a current diagnosis for this admission?: Yes Plan: Follow-up as an outpatient. - Time Time Spent with patient: 15-24 minutes - Inpatient Certification Medical Necessity: Need Close Monitoring Due to Risk of Patient Decompensation
[2017-06-24 09:47] LABS: HEMATOCRIT 34.1 % (36.0-47.0); HEMOGLOBIN 11.5 g/dL (12.0-15.5); HGB HCT DIFFERENCE 0.4; MEAN CORPUSCULAR HEMOGLOBIN 28.7 pg (27.0-33.4); MEAN CORPUSCULAR HGB CONC 33.7 g/dL (32.0-36.0); MEAN CORPUSCULAR VOLUME 85 fl (80-97); RED BLOOD COUNT 3.99 10^6/uL (3.72-5.28); RED CELL DISTRIBUTION WIDTH 16.4 % (11.5-14.0); WHITE BLOOD COUNT 4.9 10^3/uL (4.0-10.5)
[2017-06-24 09:55] LABS: ANION GAP 10 (5-19); BLOOD UREA NITROGEN 12 mg/dL (7-20); CALCIUM 9.7 mg/dL (8.4-10.2); CARBON DIOXIDE 25 mmol/L (22-30); CHLORIDE 105 mmol/L (98-107); CREATININE RESULT 0.88 mg/dL (0.52-1.25); GLUCOSE 114 mg/dL (75-110); MAGNESIUM 1.6 mg/dL (1.6-2.3); POTASSIUM 4.1 mmol/L (3.6-5.0); SODIUM 139.8 mmol/L (137-145)
[2017-06-24] MEDS: DOCUSATE SODIUM 100 MG CAPSULE PO SCH ×2 (09:58→18:49)
[2017-06-24] MEDS: CEFEPIME 1 GM/D5W RTU 1 GM/50 ML RTUPB IV SCH (09:58)
[2017-06-24 10:05] LABS: BAND NEUTROPHILS % (MANUAL) 1 % (3-5); BASOPHILS % (MANUAL) 0 % (0-2); EOSINOPHILS % (MANUAL) 2 % (0-6); LYMPHOCYTES % (MANUAL) 21 % (13-45); TOTAL CELLS COUNTED 100
[2017-06-24 10:10] LABS: ANISOCYTOSIS 1+; POIKILOCYTOSIS SLIGHT; TEAR DROP CELLS SLIGHT; TOXIC GRANULATION SLIGHT
[2017-06-24] MEDS: ENOXAPARIN SODIUM INJ 40 MG/0.4 ML DISP.SYRIN SUBCUT SCH (14:20)
--- NOTE | 2017-06-24 15:02 | PDOC PROGRESS REPORT ---
Subjective Progress Note for:: 06/24/17 Subjective:: The patient is resting in her bed. She states that she has been up and ambulated today and is able to get back and forth to the bathroom without difficulty. Overall she is feeling improved since she came to the hospital but she is concerned because she is having diarrhea every time she goes to the bathroom and tries to urinate. She states she has problems with this at home but it is worsened since she came to the hospital and started IV antibiotics. After a long discussion we have decided to keep her in the hospital overnight and check her stool for Clostridium difficile due to her immunosuppressed state and recent broad-spectrum IV antibiotics. Overall she states that she has had a little bit of a headache today. She denies fever chills. No chest pain, shortness of breath or heart palpitations. She states she does not have much of an appetite but is trying to eat. She has abdominal pain which is her baseline. She states the bloating in her abdomen has improved. She states that she has had multiple watery bowel movements today every time she urinates. She denies dysuria, frequency or hematuria. Physical Exam Vital Signs: Temp Pulse Resp BP Pulse Ox 98.4 F 73 17 120/79 100 06/24/17 11:37 06/24/17 11:37 06/24/17 11:37 06/24/17 11:37 06/24/17 11:37 Intake & Output 06/23/17 06/24/17 06/25/17 06:59 06:59 06:59 Intake Total 2290 1530 360 Output Total 800 3675 300 Balance 1490 -2145 60 Weight 79.4 kg General appearance: PRESENT: no acute distress, well-developed, other - She looks as if she does not feel well but is in no acute distress Head exam: PRESENT: atraumatic, normocephalic Mouth exam: PRESENT: moist Respiratory exam: PRESENT: clear to auscultation bettie. ABSENT: accessory muscle use, chest wall tenderness, rales, rhonchi, wheezes Cardiovascular exam: PRESENT: RRR, +S1, +S2. ABSENT: gallop, rubs, systolic murmur GI/Abdominal exam: PRESENT: diminished bowel sounds, distended, normal bowel sounds, tenderness - She has tenderness to palpation diffusely. Rectal exam: PRESENT: deferred Extremities exam: ABSENT: calf tenderness, clubbing, pedal edema Musculoskeletal exam: PRESENT: ambulatory Neurological exam: PRESENT: alert, altered, awake, oriented to person, oriented to place, oriented to time, CN II-XII grossly intact Psychiatric exam: PRESENT: appropriate affect Skin exam: PRESENT: dry, warm Results Laboratory Results: 06/24/17 09:28 06/24/17 09:28 06/24/17 06/24/17 09:28 09:28 WBC 4.9 RBC 3.99 Hgb 11.5 L Hct 34.1 L MCV 85 MCH 28.7 MCHC 33.7 RDW 16.4 H Plt Count 221 Seg Neutrophils % Not Reportable Lymphocytes % Not Reportable Monocytes % Not Reportable Eosinophils % Not Reportable Basophils % Not Reportable Absolute Neutrophils Not Reportable Absolute Lymphocytes Not Reportable Absolute Monocytes Not Reportable Absolute Eosinophils Not Reportable Absolute Basophils Not Reportable Sodium 139.8 Potassium 4.1 Chloride 105 Carbon Dioxide 25 Anion Gap 10 BUN 12 Creatinine 0.88 Est GFR ( Amer) > 60 Est GFR (Non-Af Amer) > 60 Glucose 114 H Calcium 9.7 Magnesium 1.6 06/22/17 02:20 Clean Catch Midstream Urine Culture - Final Urogenital Baldemar Impressions: Head CT 06/21/17 16:45 IMPRESSION: Stable CT appearance of the brain. No evidence of acute calvarial injury or intracranial hemorrhage. Chest X-Ray 06/21/17 16:46 IMPRESSION: NO ACUTE RADIOGRAPHIC FINDING IN THE CHEST. Assessment & Plan - Diagnosis (1) Episode of syncope Qualifiers: Syncope type: unspecified Qualified Code(s): R55 - Syncope and collapse Plan: Likely secondary to dehydration. The patient states that if she stands up too quickly she still gets a little dizzy but she has been quite careful in taking her time. (2) UTI (urinary tract infection) Qualifiers: Urinary tract infection type: site unspecified Is this a current diagnosis for this admission?: Yes Plan: The patient's urine culture was basically negative growing normal urogenital baldemar. However she did look as if she had an infection at the time of admission. I am not sure whether she was given antibiotics prior to getting the culture. She is on cefepime at this point. I am going to change this to IV Rocephin today. This is day #3 of treatment. I believe due to her immunosuppressed state that she should complete a seven-day course of treatment. (3) Diarrhea Plan: The patient states that she oftentimes has loose stools when she has urinates. However this is gotten worse since being in the hospital having IV antibiotics. She states that the frequency is increasing. I believe before she goes home we should rule her out for Clostridium difficile infection. I will order the nursing staff to collect a stool sample. (4) Immunosuppressed due to chemotherapy Is this a current diagnosis for this admission?: Yes Plan: She follows with Dr. Coon. (5) Stage IV carcinoma of colon Is this a current diagnosis for this admission?: Yes Plan: Currently undergoing chemotherapy directed by Dr. Coon (6) Anemia Plan: Likely multifactorial secondary to underlying malignancy as well as hemodilution. (7) Hypokalemia Plan: Repleted and resolved - Time Time Spent with patient: 15-24 minutes - Inpatient Certification Medical Necessity: Other - Inpatient hospitalization remains necessary. The patient is improving but is having watery diarrhea every time she urinates. She is immunosuppressed and has been on broad-spectrum antibiotics. I would like to rule her out for Clostridium difficile as she is at high risk of decompensation in the outpatient setting. She also needs to resume her chemotherapy as soon as possible and we need to rule out this infection first.
[2017-06-25] MEDS: ENOXAPARIN SODIUM INJ 40 MG/0.4 ML DISP.SYRIN SUBCUT SCH (09:58)
[2017-06-25] MEDS: DOCUSATE SODIUM 100 MG CAPSULE PO SCH ×2 (09:58→18:44)
[2017-06-25] MEDS ORDERED: CEFTRIAXONE 1 GM/D5W RTU 1 GM/50 ML RTUPB IV SCH (10:00)
--- NOTE | 2017-06-25 16:43 | PDOC DISCHARGE SUMMARY ---
General - Admit/Disc Date/PCP Admission Date/Primary Care Provider: 06/21/17 20:45 CHRISTINA BALDWIN MD Oncologist: Dr. Coon Discharge Date: 06/25/17 - Discharge Diagnosis (1) Episode of syncope Summary: Likely secondary to dehydration. Improving. (2) UTI (urinary tract infection) Is this a current diagnosis for this admission?: Yes Summary: Urine culture was negative. However clinically she has had hematuria and her urine looked quite infected at the time of admission. I am not sure whether she was given antibiotics before the culture was obtained. She received IV cefepime here in the hospital which was changed to Rocephin yesterday. She will complete a course of p.o. Omnicef. I would like for her to follow-up with her primary care physician next week in regards to her hematuria. (3) Diarrhea Summary: Resolving. Likely secondary to antibiotics. An order was written to collect her stool for Clostridium difficile and she really has not had any further episodes. (4) Immunosuppressed due to chemotherapy Is this a current diagnosis for this admission?: Yes Summary: She will follow-up with Dr. Coon next week. (5) Stage IV carcinoma of colon Is this a current diagnosis for this admission?: Yes Summary: Plan of care per Dr. Coon. (6) Anemia Summary: This is an anemia of chronic disease related to her underlying malignancy. In spite of hematuria her hemoglobin has remained quite stable and actually improved. (7) Hypokalemia Summary: Repleted and resolved (9) Hematuria Summary: The patient continues to have hematuria which may be related to her urinary tract infection. She should follow-up with her primary care physician as this may require further workup. - Additional Information Resuscitation Status: Full Code Discharge Diet: Regular Discharge Activity: Activity As Tolerated, Balance Activity w/Rest, Slowly Increase Activity Home Medications: Ondansetron [Zofran Odt 4 mg Tablet] 4 mg PO Q6HP PRN 06/22/17 Pegfilgrastim [Neulasta Inj 6 mg/0.6 ml Disp.syrin] 6 mg SUBCUT [id number] Cefdinir [Omnicef 300 mg Capsule] 1 cap PO BID #14 capsule 06/25/17 History of Present Illness History of Present Illness: ISIS GATES is a 56 year old female Hospital Course Hospital Course: The patient is a pleasant 56-year-old -[place] female with known stage IV colon cancer. She follows with Dr. Coon as an outpatient. The patient presented to the emergency room after having a syncopal episode at home. She was found to be somewhat dehydrated with evidence of a urinary tract infection. She was admitted to the hospital and started on IV fluids and IV cefepime. Over the next couple of days the patient improved. Her antibiotic coverage was changed to IV Cipro ceftriaxone. Her urine culture was negative but it was unclear whether she got her first dose of antibiotics prior to getting her culture. In any event she is had some hematuria. Her hemoglobin has remained stable and in fact has improved over the course of the hospitalization. It is felt that further workup for this can be performed as an outpatient. The patient was kept in the hospital an additional day as she was complaining of some diarrhea. She has we were going to test her stool for Clostridium difficile infection however she has not had any further episodes. At this point it is felt that she can safely be discharged home with close outpatient follow-up. She will complete a course of antibiotic therapy with p.o. Omnicef. She will follow-up with her primary care physician's office next week as well as Dr. Coon. Physical Exam Vital Signs: Temp Pulse Resp BP Pulse Ox 97.9 F 83 16 105/66 99 06/25/17 14:00 06/25/17 14:00 06/25/17 14:00 06/25/17 14:00 06/25/17 14:00 Intake & Output 06/24/17 06/25/17 06/26/17 06:59 06:59 06:59 Intake Total 1530 1970 Output Total 3675 1940 Balance -2145 30 General appearance: PRESENT: no acute distress, well-developed, well-nourished Head exam: PRESENT: atraumatic, normocephalic Mouth exam: PRESENT: moist, tongue midline Respiratory exam: PRESENT: clear to auscultation bettie. ABSENT: rales, rhonchi, wheezes Cardiovascular exam: PRESENT: RRR. ABSENT: diastolic murmur, rubs, systolic murmur GI/Abdominal exam: PRESENT: distended, normal bowel sounds, soft, tenderness - She has, other - She has mild tenderness to palpation diffusely. ABSENT: guarding, mass, organolmegaly, rebound Rectal exam: PRESENT: deferred Extremities exam: PRESENT: full ROM. ABSENT: calf tenderness, clubbing, pedal edema Neurological exam: PRESENT: alert, awake, oriented to person, oriented to place , oriented to time, oriented to situation, CN II-XII grossly intact. ABSENT: motor sensory deficit Psychiatric exam: PRESENT: appropriate affect, normal mood. ABSENT: homicidal ideation, suicidal ideation Skin exam: PRESENT: dry, intact, warm. ABSENT: cyanosis, rash Results Laboratory Results: 06/24/17 09:28 06/24/17 09:28 Impressions: Head CT 06/21/17 16:45 IMPRESSION: Stable CT appearance of the brain. No evidence of acute calvarial injury or intracranial hemorrhage. Chest X-Ray 06/21/17 16:46 IMPRESSION: NO ACUTE RADIOGRAPHIC FINDING IN THE CHEST. Qualifiers PATEINT BEING DISCHARGED WITH ANY OF THE FOLLOWING DIAGNOSIS?: No Plan Discharge Plan: The patient will be discharged home today in stable condition. Time Spent: Greater than 30 Minutes
[2017-06-25 18:00] VITALS: BP 142/88
[2017-06-26 12:03] LABS: PATH REVIEW PATHOLOGIST REVIEWED
== END 2017-06-25 19:05 | disposition home or self-care (01) | DRG 690 ==
LOC: ER 15:45 → EH 19:25 → UNDOADMIN 19:25 → EH 20:45 → 5 20:55
PROVIDERS: ADMIT Family Medicine; ATTEND Family Medicine
DX: N39.0 Urinary tract infection, site not specified (principal); K52.1 Toxic gastroenteritis and colitis; C18.9 Malignant neoplasm of colon, unspecified; C78.7 Secondary malignant neoplasm of liver and intrahepatic bile duct; E86.0 Dehydration; T36.95XA Adverse effect of unspecified systemic antibiotic, initial encounter; D64.9 Anemia, unspecified; E87.6 Hypokalemia; F32.9 Major depressive disorder, single episode, unspecified; F41.1 Generalized anxiety disorder; D63.8 Anemia in other chronic diseases classified elsewhere; I10 Essential (primary) hypertension; Z79.899 Other long term (current) drug therapy; Z80.42 Family history of malignant neoplasm of prostate; Z82.49 Family history of ischemic heart disease and other diseases of the circulatory system
CPT/HCPCS: 36415; 70450; 71010; 80048; 80053; 81001; 82550; 82553; 83605; 83735; 84443; 84484; 85025; 87040; 87086; 87493; 93005; 93010; 96365; 96375; 99285; J0692; J0696; J1650; J2405; J3480; J3490; J7030

== ENCOUNTER 2017-08-02 16:20 | Emergency (ER) | payer MEDICAID ==
--- NOTE | 2017-08-02 16:51 | ER Document Report ---
ED Dizziness/Weakness - General Chief Complaint: Syncope Stated Complaint: POSSIBLE SEIZURE Time Seen by Provider: 08/02/17 16:49 Notes: The patient is a 56-year-old female, past medical history colon cancer on chemo , presents after she possibly had a syncopal or seizure episode earlier today while playing cards. According to EMS and her daughter, the patient began to shake her left arm and leg only and was not responding. She had a similar episode in February. She had an 8 ounce beer and 1 ounce shot of liquor prior to arrival. Patient is not complaining of any current symptoms at this time, including lightheadedness, chest pain, shortness of breath, nausea, vomiting, headache, fevers, focal weakness, numbness, tingling, rash or blurry vision. TRAVEL OUTSIDE OF THE [place] IN LAST 30 DAYS: No - Related Data Allergies/Adverse Reactions: No Known Allergies Allergy (Verified 06/21/17 15:55) Past Medical History - General Information source: Patient - Social History Smoking Status: Unknown if Ever Smoked Family History: Reviewed & Not Pertinent - Past Medical History Cardiac Medical History: Denies: Hx Atrial Fibrillation, Hx Congestive Heart Failure, Hx Coronary Artery Disease, Hx DVT, Hx Heart Attack, Hx Hypercholesterolemia, Hx Hypertension, Hx Pulmonary Embolism Pulmonary Medical History: Denies: Hx Asthma, Hx Bronchitis, Hx COPD, Hx Pneumonia, Hx Sleep Apnea Neurological Medical History: Reports: Hx Seizures - Last episode 1 or 2 years ago. Never on antiepileptic.. Denies: Hx Cerebrovascular Accident Endocrine Medical History: Denies: Hx Diabetes Mellitus Type 1, Hx Diabetes Mellitus Type 2, Hx Hyperthyroidism, Hx Hypothyroidism Renal/ Medical History: Denies: Hx Peritoneal Dialysis Malignancy Medical History: Reports: Hx Colorectal Cancer - Stage IV GI Medical History: Denies: Hx Cirrhosis, Hx Gastroesophageal Reflux Disease, Hx Hepatitis Musculoskeltal Medical History: Denies Hx Arthritis Psychiatric Medical History: Reports: Hx Depression Infectious Medical History: Denies: Hx Hepatitis Past Surgical History: Reports: Hx Section, Hx Kidney (Renal Surgery) - stents, Other - Ureteral stent implants for hydronephrosis secondary to tumor mass. Denies: Hx Hysterectomy - Immunizations Immunizations up to date: No Hx Diphtheria, Pertussis, Tetanus Vaccination: No Review of Systems - Review of Systems Notes: REVIEW OF SYSTEMS: CONSTITUTIONAL: -fevers, -chills EENT: -eye pain, -difficulty swallowing, -nasal congestion CARDIOVASCULAR:-chest pain, +syncope. RESPIRATORY: -cough, -SOB GASTROINTESTINAL: -abdominal pain, -nausea, -vomiting, -diarrhea GENITOURINARY: -dysuria, -hematuria MUSCULOSKELETAL: -back pain, -neck pain SKIN: -rash or skin lesions. HEMATOLOGIC: -easy bruising or bleeding. LYMPHATIC: -swollen, enlarged glands. NEUROLOGICAL: -altered mental status or loss of consciousness, -headache PSYCHIATRIC: -anxiety, -depression. ALL OTHER SYSTEMS REVIEWED AND NEGATIVE. Physical Exam - Notes Notes: PHYSICAL EXAMINATION: GENERAL: Well-appearing, well-nourished and in no acute distress. HEAD: Atraumatic, normocephalic. EYES: Pupils equal round and reactive to light, extraocular movements intact, sclera anicteric, conjunctiva are normal. ENT: nares patent, oropharynx clear without exudates. Moist mucous membranes. NECK: Normal range of motion, supple without lymphadenopathy LUNGS: Breath sounds clear to auscultation bilaterally and equal. No wheezes rales or rhonchi. HEART: Regular rate and rhythm without murmurs ABDOMEN: Soft, nontender, normoactive bowel sounds. No guarding, no rebound. No masses appreciated. EXTREMITIES: Normal range of motion, no pitting or edema. No cyanosis. NEUROLOGICAL: Cranial nerves grossly intact. Normal speech, normal gait. Normal sensory and motor exams. PSYCH: Normal mood, normal affect. SKIN: Warm, Dry, normal turgor, no rashes or lesions noted. Course - Re-evaluation Re-evalutation: Patient appears very well and is only complaining of some dysuria and evidence of a UTI on UA. She has a leukocytosis, but no fever, and normal blood pressure and lactate. Chest x-ray and head CT do not show any acute abnormalities. She may have had a brief seizure and that may have led to the leukocytosis. Clinically, she has no evidence of meningitis without neck stiffness or altered mental status. She has an appointment with her oncologist in 2 days. Offered patient admission for further evaluation and treatment, but patient would like to go home on oral antibiotics. Given very strict return precautions and she understands. - Laboratory Result Diagrams: 08/02/17 16:42 08/02/17 16:42 Laboratory results interpreted by me: 08/02/17 08/02/17 08/02/17 16:42 16:42 18:10 WBC 27.8 H Hgb 11.2 L Hct 34.2 L RDW 17.3 H Seg Neuts % (Manual) 84 H Lymphocytes % (Manual) 9 L Monocytes % (Manual) 2 L Abs Neuts (Manual) 24.7 H Potassium 3.5 L BUN 24 H AST 13 L Alkaline Phosphatase 231 H Creatine Kinase 29 L Albumin 3.4 L Urine Protein 100 H Urine Blood LARGE H Urine Urobilinogen 2.0 H Ur Leukocyte Esterase LARGE H - Diagnostic Test Radiology reviewed: Image reviewed, Reports reviewed Radiology results interpreted by me: CT Head: NAD CXR: NAD Discharge - Discharge Clinical Impression: UTI (urinary tract infection) Qualifiers: Urinary tract infection type: site unspecified Hematuria presence: with hematuria Qualified Code(s): N39.0 - Urinary tract infection, site not specified ; R31.9 - Hematuria, unspecified; R31.9 - Hematuria, unspecified Episode of syncope Qualifiers: Syncope type: unspecified Qualified Code(s): R55 - Syncope and collapse Condition: Stable Disposition: HOME, SELF-CARE Additional Instructions: Take the full course of antibiotics. You must follow-up with your oncologist in 2 days as scheduled. Return immediately to the emergency room if you notice any worsening symptoms or any other concerns. URINARY TRACT INFECTION: Your evaluation indicates that you have a urinary tract infection. This is due to germs growing in the bladder. This is a common problem. This infection usually responds quickly to antibiotics. Your antibiotic should be taken exactly as prescribed. Drink plenty of fluids -- three to four quarts a day. Occasionally, a bladder anesthetic will be prescribed to help stop the feeling of urgency until the antibiotic has a chance to clear the infection. This may cause your urine to be dark orange. Certain urine infections require a culture. If the doctor obtained a culture, the results will be back in two days. You should call to see if a change in treatment is needed. A repeat urinalysis after you finish treatment is often recommended. The physician will let you know if further testing is required. Call the doctor if you develop fever, chills, flank pain, inability to urinate, or blood in the urine. ANTIBIOTIC THERAPY: You have been given an antibiotic prescription. It's important that you take all the medication, unless instructed otherwise by your physician. Failure to complete the entire course can result in relapse of your condition. Common side effects of antibiotics include nausea, intestinal cramping, or diarrhea. Women may develop vaginal yeast infections, and babies can get yeast (thrush) in the mouth following the use of antibiotics. Contact your physician if you develop significant side effects from this medication. Allergy to this antibiotic can result in hives, wheezing, faintness, or itching. If symptoms of allergy occur, stop the medication and call the doctor. CEPHALEXIN: The antibiotic you've been prescribed is a member of the cephalosporin class. This type of antibiotic covers a wide variety of infections, including those of the skin, lungs, and urinary tract. It's useful for staph infections. This antibiotic is slightly similar to the penicillin family. In rare cases , a person who is allergic to penicillin will also be allergic to this medication. If you have had a severe allergic reaction to penicillin, and have not taken this antibiotic since that time, notify your doctor. Antibiotics which cover many germs ("broad spectrum" antibiotics) are more likely to cause diarrhea or "yeast" infections. Women prone to vaginal yeast problems may suffer an attack after taking this antibiotic. In infants, oral thrush (white spots "stuck" on the cheek) or yeast diaper rash may result. See your doctor if these problems occur. Call at once if you develop itching, hives , shortness of breath, or lightheadedness. FOLLOW-UP CARE: If you have been referred to a physician for follow-up care, call the physician s office for an appointment as you were instructed or within the next two days. If you experience worsening or a significant change in your symptoms, notify the physician immediately or return to the Emergency Department at any time for re-evaluation. SYNCOPAL EPISODE: Syncope (fainting or near-fainting) can occur from many different health problems. Or it can be a simple fainting spell requiring no treatment. It is safe for you to go home, but further evaluation will likely be necessary. Your work-up may include tests for internal bleeding, heart disease, medication problems, or near-strokes. Tests are not always required, however, depending on the nature of your problem. The warning signs of an impending faint include: dizziness, lightheadedness , nausea, hot flashes, tingling, and weakness. If this happens, lay down and put your feet up, then wait until all of these symptoms have passed before standing up again. If these episodes become recurrent, or if you develop chest pain, heart palpitations, mental confusion, blurred vision, or headache, then you should call the physician, or go to the emergency room. NEAR SYNCOPAL EPISODE: Syncope or near syncope (fainting or near-fainting) can occur from many different health problems. Or it can be a simple fainting spell requiring no treatment. It is safe for you to go home, but further evaluation will likely be necessary. Your work-up may include tests for internal bleeding, heart disease, medication problems, or near-strokes. Tests are not always required, however, depending on the nature of your problem. The warning signs of an impending faint include: dizziness, lightheadedness , nausea, hot flashes, tingling, and weakness. If this happens, lay down and put your feet up, then wait until all of these symptoms have passed before standing up again. If these episodes become recurrent, or if you develop chest pain, heart palpitations, mental confusion, blurred vision, or headache, then you should call the physician, or go to the emergency room. ALTERED MENTAL STATUS: An altered mental status is a change in the normal functioning of the brain. This alteration of function can range from minor decreased brain function with some forgetfulness and confusion to complete loss of consciousness and coma. There are many possible causes of an altered mental status and include brain injuries such as trauma or strokes, problems with oxygen supply to the brain, fever and infections of the brain and/or elsewhere in the body, metabolic abnormalities such as low or high blood sugar, overdoses or excessive medication ingestion, and mental and psychiatric illnesses. Sometimes the altered mental status resolves and a definite cause is not determined. If a cause for your altered mental status was found, it has likely been corrected. Your evaluation has not shown any condition that requires that you be admitted to the hospital. It is believed that you are safe to lelave and return to your home. If you have a return of your symptoms, you should return for re-evaluation. NORMAL EXAM AND WORKUP: At this time, your examination and workup show no significant abnormality. No significant abnormal physical findings were noted. All laboratory, EKG, and imaging (x-ray, CT scans, ultrasound) studies that were ordered show no significant abnormality. Although your examination and all studies that were ordered showed no significant abnormal finding, there are no examinations and no studies that are 100% accurate. There is always the possibility that some abnormality could exist and not be detected with physical examination or within the limits and capabilities of laboratory and other studies. You should return or follow up as you were instructed on your visit today for further evaluation if your symptoms do not resolve. FOLLOW-UP CARE: If you have been referred to a physician for follow-up care, call the physician s office for an appointment as you were instructed or within the next two days. If you experience worsening or a significant change in your symptoms, notify the physician immediately or return to the Emergency Department at any time for re-evaluation. Prescriptions: Cephalexin Monohydrate [Keflex 500 mg Capsule] 500 mg PO TID 7 Days capsule Referrals: DAMON SKELTON MD [ACTIVE STAFF] - Follow up as needed
[2017-08-02 16:59] LABS: HEMATOCRIT 34.2 % (36.0-47.0); HEMOGLOBIN 11.2 g/dL (12.0-15.5); HGB HCT DIFFERENCE -0.6; MEAN CORPUSCULAR HEMOGLOBIN 28.1 pg (27.0-33.4); MEAN CORPUSCULAR HGB CONC 32.8 g/dL (32.0-36.0); MEAN CORPUSCULAR VOLUME 86 fl (80-97); RED BLOOD COUNT 3.99 10^6/uL (3.72-5.28); RED CELL DISTRIBUTION WIDTH 17.3 % (11.5-14.0); WHITE BLOOD COUNT 27.8 10^3/uL (4.0-10.5)
[2017-08-02 17:14] LABS: ALANINE AMINOTRANSFERASE 20 U/L (9-52); ALBUMIN 3.4 g/dL (3.5-5.0); ALKALINE PHOSPHATASE 231 U/L (38-126); ANION GAP 13 (5-19); ASPARTATE AMINO TRANSFERASE 13 U/L (14-36); BAND NEUTROPHILS % (MANUAL) 5 % (3-5); BASOPHILS % (MANUAL) 0 % (0-2); BILIRUBIN,DIRECT 0.3 mg/dL (0.0-0.4); BLOOD UREA NITROGEN 24 mg/dL (7-20); CARBON DIOXIDE 23 mmol/L (22-30); CHLORIDE 106 mmol/L (98-107); CREATINE KINASE 29 U/L (30-135); CREATININE RESULT 0.93 mg/dL (0.52-1.25); EOSINOPHILS % (MANUAL) 0 % (0-6); GLUCOSE 93 mg/dL (75-110); LYMPHOCYTES % (MANUAL) 9 % (13-45); POTASSIUM 3.5 mmol/L (3.6-5.0); SODIUM 142.4 mmol/L (137-145); TOTAL CELLS COUNTED 100; TOTAL PROTEIN 6.3 g/dL (6.3-8.2)
[2017-08-02 17:15] LABS: ANISOCYTOSIS 1+; HYPOCHROMASIA SLIGHT; OVALOCYTES SLIGHT; POIKILOCYTOSIS SLIGHT
[2017-08-02 17:16] LABS: PLATELET CLUMPS PRESENT
[2017-08-02 17:27] LABS: CREATINE KINASE MB < 0.22 ng/mL (<4.55); TROPONIN I < 0.012 ng/mL
[2017-08-02 17:40] LABS: ADD ON TESTING BLD IN LAB ACKNOWLEDGE
--- NOTE | 2017-08-02 17:49 | RADIOLOGY REPORT (SQ) ---
EXAM DESCRIPTION: CHEST SINGLE VIEW COMPLETED DATE/TIME: 08/02/2017 5:41 pm REASON FOR STUDY: syncope COMPARISON: 06/21/2017 EXAM PARAMETERS: NUMBER OF VIEWS: Two frontal views TECHNIQUE: Single frontal radiographic view of the chest acquired. RADIATION DOSE: NA LIMITATIONS: None. FINDINGS: LUNGS AND PLEURA: No opacities, masses or pneumothorax. No pleural effusion. MEDIASTINUM AND HILAR STRUCTURES: No masses. Contour normal. HEART AND VASCULAR STRUCTURES: Heart normal in size. Normal vasculature. BONES: No acute findings. HARDWARE: A left anterior chest wall Port-A-Cath is stable in position and appearance. OTHER: No other significant finding. IMPRESSION: NO ACUTE RADIOGRAPHIC FINDING IN THE CHEST. TECHNICAL DOCUMENTATION: JOB ID: [id number]
[2017-08-02 17:53] LABS: ALCOHOL < 10 mg/dL (NONE DETECTED)
--- NOTE | 2017-08-02 17:55 | RADIOLOGY REPORT (SQ) ---
EXAM DESCRIPTION: CT HEAD WITHOUT COMPLETED DATE/TIME: 08/02/2017 5:46 pm REASON FOR STUDY: fall, head injury COMPARISON: 06/21/2017, 04/05/2017 TECHNIQUE: Axial images acquired through the brain without intravenous contrast. Images reviewed wi th bone, brain and subdural windows. Images stored on PACS. All CT scanners at this facility use dose modulation, iterative reconstruction, and/or weight based d osing when appropriate to reduce radiation dose to as low as reasonably achievable (ALARA). [facility]: Dose Right [facility]: CareDose [facility]: Dose Right [facility]: Teradose 4D [facility]: HyperWeek RADIATION DOSE: mGy. LIMITATIONS: None. FINDINGS: VENTRICLES: Normal size and contour. CEREBRUM: No masses. No hemorrhage. No midline shift. No evidence for acute infarction. Normal gra y/white matter differentiation. No areas of low density in the white matter. CEREBELLUM: No masses. No hemorrhage. No alteration of density. No evidence for acute infarction. EXTRAAXIAL SPACES: No fluid collections. No masses. ORBITS AND GLOBE: No intra- or extraconal masses. Normal contour of globe without masses. CALVARIUM: No fracture. PARANASAL SINUSES: No fluid or mucosal thickening. SOFT TISSUES: No mass or hematoma. OTHER: No other significant finding. IMPRESSION: Stable CT appearance of the brain. No evidence of acute calvarial injury or intracrania l hemorrhage. EVIDENCE OF ACUTE STROKE: NO. COMMENT: Quality ID # [id number]: Final reports with documentation of one or more dose reduction techniques (e.g., Automated exposure control, adjustment of the mA and/or kV according to patient size, use of iterative reconstruction technique) TECHNICAL DOCUMENTATION: JOB ID: [id number]- All Rights Reserved
[2017-08-02 18:47] LABS: APPEARANCE,URINE SLIGHTLY-CLOUDY; BILIRUBIN,URINE NEGATIVE (NEGATIVE); GLUCOSE, URINE NEGATIVE (NEGATIVE); KETONES,URINE NEGATIVE (NEGATIVE); LEUKOCYTE ESTERASE,URINE LARGE (NEGATIVE); NITRITE,URINE NEGATIVE (NEGATIVE); PROTEIN,URINE 100 mg/dL (NEGATIVE); URINE SPECIFIC GRAVITY 1.018
[2017-08-02] MEDS ORDERED: CEFTRIAXONE 1 GM/D5W RTU 1 GM/50 ML RTUPB IV ONE (18:48)
[2017-08-02] MEDS: NORMAL SALINE 1000 ML 1,000 ML IV PRN ×2 (19:47→22:17)
[2017-08-02] MEDS ORDERED: ONDANSETRON 4 MG TAB.RAPDIS PO ONE (22:58)
[2017-08-03 02:16] VITALS: BP 125/80
--- NOTE | 2017-08-03 09:21 | EKG REPORT ---
SEVERITY:- NORMAL ECG - SINUS RHYTHM : Confirmed by: Sophia Jay MD 03-Aug-2017 09:20:33
== END 2017-08-03 01:40 | disposition home or self-care (01) ==
LOC: ER 16:20
DX: N39.0 Urinary tract infection, site not specified (principal); R31.9 Hematuria, unspecified; R55 Syncope and collapse; Z85.038 Personal history of other malignant neoplasm of large intestine
CPT/HCPCS: 93005; 99284; 96361; 96365; 36415; 82553; 80307; 82550; 83605; 85025; 80053; 81001; 84484; 71010; 70450; 93010; S0119; J7030; J0696

== ENCOUNTER → 2017-10-23 | Outpatient (CLI) | payer MEDICAID ==
--- NOTE | 2017-10-23 14:53 | RADIOLOGY REPORT (SQ) ---
EXAM DESCRIPTION: CT CHEST WITH; CT ABD/PELVIS WITH IV ORAL COMPLETED DATE/TIME: 10/23/2017 10:32 am REASON FOR STUDY: COLORECTAL CA C19 MALIGNANT NEOPLASM OF RECTOSIGMOID JUNCTION COMPARISON: CT chest abdomen pelvis 09/30/2016, 03/19/2016 CT abdomen pelvis 05/25/2016 PET-CT 10/19/2015 CONTRAST TYPE AND DOSE: contrast/concentration: Isovue 370.00 mg/ml; Total Contrast Delivered: 76.0 ml; Total Saline Delivered: 65.0 ml RENAL FUNCTION: Creatinine 0.9 TECHNIQUE: CT scan of the chest performed using helical scanning technique with dynamic intravenous contrast injection. Images reviewed with lung, soft tissue and bone windows. Reconstructed coronal a nd sagittal MPR images reviewed. All images stored on PACS. CT scan of the abdomen and pelvis performed with intravenous and without oral contrastusing helical s wes technique with dynamic intravenous contrast injection. Images reviewed with lung, soft tissu e and bone windows. Reconstructed coronal and sagittal MPR images reviewed. Delayed images for eval uation of the urinary system also acquired and evaluated. All images stored on PACS. All CT scanners at this facility use dose modulation, iterative reconstruction, and/or weight based d osing when appropriate to reduce radiation dose to as low as reasonably achievable (ALARA). [facility]: Dose Right [facility]: CareDose [facility]: Dose Right [facility]: Teradose 4D [facility]: Smart Technologies RADIATION DOSE: CT Rad equipment meets quality standard of care and radiation dose reduction techniq ues were employed. CTDIvol: 4.5 - 5.7 mGy. DLP: 787 mGy-cm. . LIMITATIONS: None. FINDINGS: CHEST: LUNGS AND PLEURA: No opacities, nodules, masses. No pneumothorax. No effusions. HILAR AND MEDIASTINAL STRUCTURES: No identified masses or abnormal nodes. Small hiatal hernia HEART AND VASCULAR STRUCTURES: No aneurysm or dissection. No central pulmonary emboli. No pericardi al effusion. Moderate cardiomegaly HARDWARE: Left-sided permanent central line tip superior vena cava. THYROID AND OTHER SOFT TISSUES: No masses. No adenopathy. BONES: No significant finding. OTHER: No other significant finding. ABDOMEN AND PELVIS: LIVER: Multiple liver metastatic lesions present, all of which are smaller than on prior CT exam from 09/30/2016. Index lesions are as follows: 6 mm and 5 mm nodules left lobe liver near the falciform ligament (both 1 cm diameter 09/30/2016) 1.7 cm nodule right lobe liver image 23 (was 2.4 cm on 09/30/2016) 2 cm nodule right lobe liver inferiorly axial image 28 (was 2.5 cm on 09/29/2016). SPLEEN: Normal size. No focal lesions. PANCREAS: No masses. No significant calcifications. No adjacent inflammation or peripancreatic fluid collections. Pancreatic duct not dilated. GALLBLADDER: Stone in the gallbladder without gallbladder wall thickening or pericholecystic fluid ADRENAL GLANDS: No significant masses or asymmetry. KIDNEYS AND URETERS: Bilateral double-J stents are in place, in good positioning. No solid masses. No significant calcification. No hydronephrosis or hydroureter. AORTA AND VESSELS: No aneurysm. No dissection. Renal arteries, SMA, celiac without stenosis. RETROPERITONEUM: No retroperitoneal adenopathy, hemorrhage or masses. BOWEL AND PERITONEAL CAVITY: No ascites. Rind of omental tumor similar compared to 09/30/2016. Oral contrast throughout the gastrointestinal tract without evidence of bowel obstruction. APPENDIX: Not identified ABDOMINAL WALL: No masses. No hernias. BONES: No significant or acute findings. PELVIS: Pelvic mass is smaller than on previous exams, and exhibits spotty calcification likely treat ment effect. Overall it measures 17 cm craniocaudad by 15 cm transverse by 13 cm AP (was 30 cm crani ocaudad by 8.5 cm transverse by 8 cm AP on 09/30/2016). No adenopathy or free fluid. Bladder unrema rkable. IMPRESSION: Decrease in size of the pelvic mass compared to 09/30/2016 Decrease in size of liver metastatic lesions Stable omental disease No CT evidence of metastatic disease to the chest Bilateral double-J stents in good positioning, no hydronephrosis TECHNICAL DOCUMENTATION: JOB ID: [id number] Quality ID # [id number]: Final reports with documentation of one or more dose reduction techniques (e.g., Au tomated exposure control, adjustment of the mA and/or kV according to patient size, use of iterative reconstruction technique) 2010 [employer]- All Rights Reserved
== END ==
LOC: RAD 09:25
PROVIDERS: ATTEND Internal Medicine Medical Oncology
DX: C19 Malignant neoplasm of rectosigmoid junction (principal)
CPT/HCPCS: 71260; 74177

== ENCOUNTER → 2018-01-23 | Outpatient (CLI) | payer MEDICARE, MEDICAID ==
--- NOTE | 2018-01-23 10:28 | RADIOLOGY REPORT (SQ) ---
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 Images reviewed with lung, soft tissue and bone windows. Reconstructed coronal a nd sagittal MPR images reviewed. All images stored on PACS. CT scan of the abdomen and pelvis performed with intravenous and with oral contrastusing helical scan diamante technique with dynamic intravenous contrast injection. Images reviewed with lung, soft tissue a nd bone windows. Reconstructed coronal and sagittal MPR images reviewed. Delayed images for evaluat ion of the urinary system also acquired and evaluated. All images stored on PACS. All CT scanners at this facility use dose modulation, iterative reconstruction, and/or weight based d osing when appropriate to reduce radiation dose to as low as reasonably achievable (ALARA). [facility]: Dose Right [facility]: CareDose [facility]: Dose Right [facility]: Teradose 4D [facility]: [employer] RADIATION DOSE: CT Rad equipment meets quality standard of care and radiation dose reduction techniq ues were employed. CTDIvol: 4.6 - 5.0 mGy. DLP: 999 mGy-cm. . LIMITATIONS: None. FINDINGS: CHEST: LUNGS AND PLEURA: No opacities, nodules, masses. No pneumothorax. No effusions. HILAR AND MEDIASTINAL STRUCTURES: No identified masses or abnormal nodes. HEART AND VASCULAR STRUCTURES: No aneurysm or dissection. No central pulmonary emboli. No pericardi al effusion. The left arm was injected for CT. 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 These findings are similar compared to studies dating back to 2016. HARDWARE: None. THYROID AND OTHER SOFT TISSUES: No masses. No adenopathy. BONES: No significant finding. OTHER: No other significant finding. ABDOMEN AND PELVIS: LIVER: Liver metastatic lesions are stable or smaller in size compared to 10/23/2017 as follows: 6 mm and 5 mm left lobe liver at the falciform ligament (no change compared to 10/23/2017) Right lobe liver 1.3 cm lesion image 26 (was 1.7 cm on 10/23/2017) Right lobe liver 1.9 cm lesion image 30 (unchanged from 10/23/2017). SPLEEN: Normal size. No focal lesions. PANCREAS: No masses. No significant calcifications. No adjacent inflammation or peripancreatic fluid collections. Pancreatic duct not dilated. GALLBLADDER: Tiny stone in the gallbladder. No findings worrisome for acute cholecystitis ADRENAL GLANDS: No significant masses or asymmetry. RIGHT KIDNEY AND URETER: No solid masses. No significant calcification. No hydronephrosis or hydroure ter. Right double-J stent in place LEFT KIDNEY AND URETER: No solid masses. No significant calcification. No hydronephrosis or hydrouret er. Left double-J stent in place AORTA AND VESSELS: No aneurysm. No dissection. Renal arteries, SMA, celiac without stenosis. RETROPERITONEUM: No retroperitoneal adenopathy, hemorrhage or masses. BOWEL AND PERITONEAL CAVITY: Patient drank oral contrast. No CT evidence of bowel obstruction. No ascites. Stable right upper quadrant omental disease. APPENDIX: Normal. ABDOMINAL WALL: No masses. No hernias. PELVIS: Stable partially calcified midline pelvic mass, 16 x 14 x 12 cm in size, stable compared to C T exam 10/23/2017. No free pelvic fluid. BONES: No significant or acute findings. OTHER: No other significant finding. IMPRESSION: No CT evidence of metastatic disease to the chest Stable omental tumor and stable midline cystic/solid and partially calcified pelvic mass Stable to slight decrease in size of liver metastatic lesions TECHNICAL DOCUMENTATION: JOB ID: [id number] Quality ID # [id number]: Final reports with documentation of one or more dose reduction techniques (e.g., Au tomated exposure control, adjustment of the mA and/or kV according to patient size, use of iterative reconstruction technique) 2010 [employer]- All Rights Reserved Reading location - IP/workstation name: [facility]
== END ==
LOC: RAD 08:29
PROVIDERS: ATTEND Internal Medicine Medical Oncology
DX: C19 Malignant neoplasm of rectosigmoid junction (principal); N13.30 Unspecified hydronephrosis
CPT/HCPCS: 71260; 74177; 82565

== ENCOUNTER 2018-02-13 00:07 | Inpatient (IN) | payer MEDICAID, MEDICARE ==
[2018-02-13] MEDS ORDERED: NORMAL SALINE 500 ML IV ONE (00:33)
--- NOTE | 2018-02-13 00:48 | ER Document Report ---
ED General - General Chief Complaint: Dizziness Stated Complaint: DIZZINESS Time Seen by Provider: 02/13/18 00:21 Notes: Patient is a very pleasant 49-year-old female with a history of colon cancer presents with complaint of body aches and feeling very hot and flushed. Patient says she has history of colon cancer received chemo therapy type shot every . She said that she usually has no problems after receiving the shot. She said several hours after receiving the shot she felt febrile had body aches and chills and then started feeling very dizzy and weak and unwell. She says she has had similar symptoms in the past when she had a UTI and had to be admitted once for. She denies any cough or congestion. No vomiting. No diarrhea. No abdominal pain. No other complaints at this time. TRAVEL OUTSIDE OF THE [place] IN LAST 30 DAYS: No - Related Data Allergies/Adverse Reactions: No Known Allergies Allergy (Verified 06/21/17 15:55) Past Medical History - Social History Smoking Status: Unknown if Ever Smoked Frequency of alcohol use: None Drug Abuse: None Family History: Reviewed & Not Pertinent - Past Medical History Cardiac Medical History: Denies: Hx Atrial Fibrillation, Hx Congestive Heart Failure, Hx Coronary Artery Disease, Hx DVT, Hx Heart Attack, Hx Hypercholesterolemia, Hx Hypertension, Hx Pulmonary Embolism Pulmonary Medical History: Denies: Hx Asthma, Hx Bronchitis, Hx COPD, Hx Pneumonia, Hx Sleep Apnea Neurological Medical History: Reports: Hx Seizures - Last episode 1 or 2 years ago. Never on antiepileptic.. Denies: Hx Cerebrovascular Accident Endocrine Medical History: Denies: Hx Diabetes Mellitus Type 1, Hx Diabetes Mellitus Type 2, Hx Hyperthyroidism, Hx Hypothyroidism Renal/ Medical History: Denies: Hx Peritoneal Dialysis Malignancy Medical History: Reports: Hx Colorectal Cancer - Stage IV GI Medical History: Denies: Hx Cirrhosis, Hx Gastroesophageal Reflux Disease, Hx Hepatitis Musculoskeltal Medical History: Denies Hx Arthritis Psychiatric Medical History: Reports: Hx Depression Infectious Medical History: Denies: Hx Hepatitis Past Surgical History: Reports: Hx Section, Hx Kidney (Renal Surgery) - stents, Other - Ureteral stent implants for hydronephrosis secondary to tumor mass. Denies: Hx Hysterectomy - Immunizations Immunizations up to date: No Hx Diphtheria, Pertussis, Tetanus Vaccination: No Review of Systems - Review of Systems Notes: My Normal Review Basic REVIEW OF SYSTEMS: CONSTITUTIONAL : Fever. EENT: Denies eye, ear, throat, or mouth pain or symptoms. Denies nasal or sinus congestion. CARDIOVASCULAR: Denies chest pain. RESPIRATORY: Denies cough, cold, or chest congestion. Denies shortness of breath, difficulty breathing, or wheezing. GASTROINTESTINAL: Denies abdominal pain. Nausea. No vomiting. GENITOURINARY: Denies difficulty urinating, painful urination, burning, frequency, or blood in urine. MUSCULOSKELETAL: Body aches SKIN: Denies rash or skin lesions. NEUROLOGICAL: Denies altered mental status or loss of consciousness. Denies headache. Denies weakness or paralysis or loss of use of either side. Denies problems with gait or speech. Denies sensory or motor loss. ALL OTHER SYSTEMS REVIEWED AND NEGATIVE. Physical Exam - Vital signs Vitals: Temp Pulse Resp BP Pulse Ox 98.5 F 94 18 122/82 99 02/13/18 00:08 02/13/18 00:08 02/13/18 00:08 02/13/18 00:08 02/13/18 00:08 - Notes Notes: General Appearance: Well nourished, alert but a little bit somnolent., cooperative, no acute distress, no obvious discomfort. Vitals: reviewed, See vital signs table. Head: no swelling or tenderness to the head Eyes: PERRL, EOMI, Conjuctiva clear Mouth: No decreasd moisture Throat: No tonsillar inflammation, No airway obstruction, No lymphadenopathy Lungs: No wheezing, No rales, No rhonci, No accessory muscle use, good air exchange bilaterally. Heart: Normal rate, Regular rythm, No murmur, no rub Abdomen: Normal BS, soft, No rigidity, No abdominal tenderness, No guarding, no rebound, no abdominal masses, no organomegaly Extremities: strength 5/5 in all extremities, good pulses in all extremities, no swelling or tenderness in the extremities, no edema. Skin: warm, dry, appropriate color, no rash Neuro: speech clear, oriented x 2, sleepy affect, responds appropriately to questions. Renal nerves II through XII are intact. Distal sensation intact. Patient moves all extremities without difficulty. Course - Re-evaluation Re-evalutation: 02/13/18 03:[address] Coon, patient's oncologist, because of the patient's very high white blood cell count. Dr. Coon said that she actually received a shot of Neulasta today and that is why her white count is still high. She says that she does not have concern for blast crisis. 02/13/18 03:54 I suspect her very high white count is a result of combination of her having urinary tract infection with just receiving Neulasta shot. She still says that she does not feel back to her normal self and feels very weak. She is weak. On exam but otherwise looks okay. Her vital signs are normal. I did did speak with the hospitalist who agrees to evaluate the patient for admission. Patient given a dose of Rocephin and urine has been sent for culture. Dictation of this chart was performed using voice recognition software; therefore, there may be some unintended grammatical errors. - Vital Signs Vital signs: Temp Pulse Resp BP Pulse Ox 98.5 F 82 20 144/84 H 97 02/13/18 00:08 02/13/18 03:00 02/13/18 03:00 02/13/18 03:00 02/13/18 03:00 - Laboratory Result Diagrams: 02/13/18 01:50 02/13/18 01:50 Laboratory results interpreted by me: 02/13/18 02/13/18 02/13/18 01:50 01:50 01:50 WBC 55.8 H* Hgb 11.8 L RDW 17.9 H Seg Neuts % (Manual) 97 H Lymphocytes % (Manual) 3 L Monocytes % (Manual) 0 L Abs Neuts (Manual) 54.1 H Abs Monocytes (Manual) 0.0 L Sodium 146.3 H BUN 24 H Urine Protein >=500 H Urine Blood MODERATE H Urine Urobilinogen 2.0 H Ur Leukocyte Esterase MODERATE H - EKG Interpretation by Me Additional EKG results interpreted by me: 02/13/18 00:47 EKG is reviewed and interpreted by me. EKG shows sinus rhythm with a rate of [address] segment elevation or depression. No ischemic T-wave inversions. VA interval, QRS duration, QTc intervals are within normal range. Old EKG for comparison is from August 02, 2017. Discharge - Discharge Clinical Impression: UTI (urinary tract infection) Qualifiers: Urinary tract infection type: site unspecified Hematuria presence: with hematuria Qualified Code(s): N39.0 - Urinary tract infection, site not specified ; R31.9 - Hematuria, unspecified; R31.9 - Hematuria, unspecified Leukocytosis Qualifiers: Leukocytosis type: unspecified Qualified Code(s): D72.829 - Elevated white blood cell count, unspecified Disposition: ADMITTED OBSERVATION Admitting Provider: Hospitalist Unit Admitted: Telemetry
--- NOTE | 2018-02-13 01:46 | RADIOLOGY REPORT (SQ) ---
EXAM DESCRIPTION: CHEST SINGLE VIEW CLINICAL HISTORY: altered mental status COMPARISON: 08/02/2017 FINDINGS: Single frontal view of the chest. Left subclavian Mediport with tip in the SVC. Leads overlie the chest. Elevation of the left hemidiaphragm. The cardiomediastinal silhouette has normal size and contour. No lobar consolidation, pneumothorax, or pleural effusion. Likely minimal left basilar subsegmental atelectasis. No displaced rib fractures identified. Upper abdominal soft tissues are unremarkable. IMPRESSION: 1. No acute pneumonic process identified.
[2018-02-13 02:17] LABS: HEMATOCRIT 36.8 % (36.0-47.0); HEMOGLOBIN 11.8 g/dL (12.0-15.5); MEAN CORPUSCULAR HEMOGLOBIN 27.5 pg (27.0-33.4); MEAN CORPUSCULAR HGB CONC 32.2 g/dL (32.0-36.0); MEAN CORPUSCULAR VOLUME 85 fl (80-97); PLATELET COUNT 260 10^3/uL (150-450); RED BLOOD COUNT 4.31 10^6/uL (3.72-5.28); RED CELL DISTRIBUTION WIDTH 17.9 % (11.5-14.0)
[2018-02-13 02:18] LABS: APPEARANCE,URINE CLOUDY; BILIRUBIN,URINE NEGATIVE (NEGATIVE); COLOR,URINE AMBER; GLUCOSE, URINE NEGATIVE (NEGATIVE); KETONES,URINE NEGATIVE (NEGATIVE); LEUKOCYTE ESTERASE,URINE MODERATE (NEGATIVE); NITRITE,URINE NEGATIVE (NEGATIVE); PROTEIN,URINE >=500 mg/dL (NEGATIVE); URINE SPECIFIC GRAVITY 1.024
[2018-02-13 02:22] LABS: ALANINE AMINOTRANSFERASE 14 U/L (9-52); ALBUMIN 3.7 g/dL (3.5-5.0); ALKALINE PHOSPHATASE 52 U/L (38-126); ANION GAP 15 (5-19); ASPARTATE AMINO TRANSFERASE 14 U/L (14-36); BILIRUBIN,DIRECT 0.3 mg/dL (0.0-0.4); BILIRUBIN,TOTAL 0.6 mg/dL (0.2-1.3); BLOOD UREA NITROGEN 24 mg/dL (7-20); CALCIUM 9.6 mg/dL (8.4-10.2); CARBON DIOXIDE 25 mmol/L (22-30); CHLORIDE 106 mmol/L (98-107); GLUCOSE 86 mg/dL (75-110); POTASSIUM 4.4 mmol/L (3.6-5.0); SODIUM 146.3 mmol/L (137-145); TOTAL PROTEIN 6.8 g/dL (6.3-8.2)
[2018-02-13 02:33] LABS: ABSOLUTE LYMPHOCYTES# (MANUAL) 1.7 10^3/uL (0.5-4.7); ABSOLUTE NEUTROPHILS# (MANUAL) 54.1 10^3/uL (1.7-8.2); BASOPHILS % (MANUAL) 0 % (0-2); EOSINOPHILS % (MANUAL) 0 % (0-6); LYMPHOCYTES % (MANUAL) 3 % (13-45); MONOCYTES % (MANUAL) 0 % (3-13); SEGMENTED NEUTROPHILS % (MAN) 97 % (42-78); TOTAL CELLS COUNTED 100
[2018-02-13 02:36] LABS: ANISOCYTOSIS 1+; OVALOCYTES SLIGHT; PLATELET COMMENT ADEQUATE; POIKILOCYTOSIS SLIGHT; TOXIC GRANULATION SLIGHT
[2018-02-13] MEDS ORDERED: CEFTRIAXONE INJ 1000 MG VIAL IV ONE (02:37)
[2018-02-13 02:41] LABS: WHITE BLOOD COUNT 55.8 10^3/uL (4.0-10.5)
--- NOTE | 2018-02-13 03:19 | RADIOLOGY REPORT (SQ) ---
EXAM DESCRIPTION: CT HEAD WITHOUT CLINICAL HISTORY: headache COMPARISON: None available TECHNIQUE: Axial CT of the head obtained from the skull apex to the skull base without contrast. FINDINGS: No acute intracranial hemorrhage identified. No mass, mass effect, shift of the midline, abnormal extra-axial fluid collection or CT evidence of acute ischemic change identified. The ventricular system is unremarkable. No acute abnormalities of the supratentorial white matter, basal ganglia, cerebellum, or brainstem. Mucosal retention cyst in the right maxillary sinus. Fluid in the mastoid air cells. No skull fracture identified. Visualized orbits and globes are unremarkable. DLP: 1123.58 mGy-cm IMPRESSION: 1. No acute intracranial abnormality identified. This exam was performed according to our departmental dose-optimization program, which includes automated exposure control, adjustment of the mA and/or kV according to patient size and/or use of iterative reconstruction technique.
[2018-02-13] MEDS ORDERED: ONDANSETRON HCL INJ/PF 4 MG/2 ML SDV IV PRN (04:05)
[2018-02-13] MEDS ORDERED: OXYCODONE-ACETAMINOPHEN 5-325 MG TABLET PO PRN (04:05)
[2018-02-13] MEDS ORDERED: NORMAL SALINE 1000 ML 1,000 ML IV PRN (04:11)
--- NOTE | 2018-02-13 04:25 | PDOC H&P ---
History of Present Illness Admission Date/PCP: 02/13/18 04:01 COLLEEN HURD PA-C History of Present Illness: ISIS GATES is a 57 year old black female patient who is known case of stage IV colon cancer and has been on chemotherapy every . Yesterday several hours after she got her chemo, patient started to have fever, chills, shaking and dizziness. She claims that this is the first time she experienced such situation after chemo. Her initial workup shows markedly elevated white cell count of 55,000 and her urinalysis positive for leukocyte esterase and WBC. Most probably her leukocytosis is attributed to Neulasta per her oncologist. Patient endorses nausea but no vomiting or abdominal pain or diarrhea. She has dizziness but no headache or blurring of vision. She does not have urgency, frequency, hematuria or dysuria. Past Medical History Cardiac Medical History: Denies: Atrial Fibrillation, Congestive Heart Failure, Coronary Artery Disease, DVT, Myocardial Infarction, Hyperlipidema, Hypertension, Pulmonary Embolism Pulmonary Medical History: Denies: Asthma, Bronchitis, Chronic Obstructive Pulmonary Disease (COPD), Pneumonia, Sleep Apnea Neurological Medical History: Reports: Seizures - Last episode 1 or 2 years ago. Never on antiepileptic. Endocrine Medical History: Denies: Diabetes Mellitus Type 1, Diabetes Mellitus Type 2, Hyperthyroidism, Hypothyroidism Malignancy Medical History: Reports: Colorectal Cancer - Stage IV GI Medical History: Denies: Cirrhosis, Gastroesophageal Reflux Disease, Hepatitis Musculoskeltal Medical History: Denies: Arthritis Psychiatric Medical History: Reports: Depression Hematology: Denies: Anemia Past Surgical History Past Surgical History: Reports: Section, Other - Ureteral stent implants for hydronephrosis secondary to tumor mass Denies: Hysterectomy Social History Smoking Status: Never Smoker Frequency of Alcohol Use: Social Hx Recreational Drug Use: No Drugs: None Hx Prescription Drug Abuse: No Family History Family History: Reviewed & Not Pertinent Parental Family History Reviewed: Yes Children Family History Reviewed: Yes Sibling(s) Family History Reviewed.: Yes Medication/Allergy Home Medications: Ondansetron [Zofran Odt 4 mg Tablet] 4 mg PO Q6HP PRN 06/22/17 Pegfilgrastim [Neulasta Inj 6 mg/0.6 ml Disp.syrin] 6 mg SUBCUT [id number] Cefdinir [Omnicef 300 mg Capsule] 1 cap PO BID #14 capsule 06/25/17 Cephalexin Monohydrate [Keflex 500 mg Capsule] 500 mg PO TID 7 Days capsule Allergies/Adverse Reactions: No Known Allergies Allergy (Verified 06/21/17 15:55) Physical Exam Vital Signs: Temp Pulse Resp BP Pulse Ox 98.5 F 82 20 144/84 H 97 02/13/18 00:08 02/13/18 03:00 02/13/18 03:00 02/13/18 03:00 02/13/18 03:00 General appearance: PRESENT: no acute distress Head exam: PRESENT: atraumatic, normocephalic Respiratory exam: PRESENT: clear to auscultation bettie. ABSENT: rales, rhonchi, wheezes Cardiovascular exam: PRESENT: RRR. ABSENT: diastolic murmur, rubs, systolic murmur Gentrourinary exam: PRESENT: other - No CVA tenderness Psychiatric exam: PRESENT: appropriate affect, normal mood. ABSENT: homicidal ideation, suicidal ideation Results Impressions: Chest X-Ray 02/13/18 00:32 IMPRESSION: 1. No acute pneumonic process identified. Head CT 02/13/18 00:33 IMPRESSION: 1. No acute intracranial abnormality identified. This exam was performed according to our departmental dose-optimization program, which includes automated exposure control, adjustment of the mA and/or kV according to patient size and/or use of iterative reconstruction technique. Assessment & Plan - Diagnosis (1) Sepsis Qualifiers: Sepsis type: sepsis due to unspecified organism Qualified Code(s): A41.9 - Sepsis, unspecified organism Is this a current diagnosis for this admission?: Yes Plan: Patient has leukocytosis, fever, UTI. She has been started on cefepime. We will adjust her antibiotics based on her clinical progress and culture result. (2) Complicated UTI (urinary tract infection) Is this a current diagnosis for this admission?: Yes Plan: As #1 (3) History of colon cancer, stage IV Is this a current diagnosis for this admission?: Yes Plan: Per her oncologist - Time Time Spent: 30 to 50 Minutes - Inpatient Certification Medical Necessity: Need for IV Antibiotics
[2018-02-13] MEDS: LANSOPRAZOLE 30 MG TAB.RAP.DR PO SCH (06:38)
[2018-02-13] MEDS ORDERED: CEFEPIME 1 GM/D5W RTU 1 GM/50 ML RTUPB IV ONE (10:00)
[2018-02-13] MEDS: ENOXAPARIN SODIUM INJ 40 MG/0.4 ML DISP.SYRIN SUBCUT SCH (10:49)
[2018-02-13] MEDS: CEFEPIME 1 GM/D5W RTU 1 GM/50 ML RTUPB IV SCH ×2 (10:51→22:00)
[2018-02-13 14:47] LABS: PATH REVIEW PATHOLOGIST REVIEWED
--- NOTE | 2018-02-13 15:27 | PDOC PROGRESS REPORT ---
Subjective Progress Note for:: 02/13/18 Subjective:: Patient refers that is no longer having chills. Relates that he started to feel better. Review of systems All organ systems evaluated and negative except as in subjective All significant laboratories and diagnostics have been reviewed Reason For Visit: SEPSIS, UTI Physical Exam Vital Signs: Temp Pulse Resp BP Pulse Ox 98.8 F 71 12 139/85 H 100 02/13/18 08:00 02/13/18 08:00 02/13/18 08:00 02/13/18 08:00 02/13/18 08:00 Intake & Output 02/12/18 02/13/18 02/14/18 06:59 06:59 06:59 Weight 60.8 kg General appearance: PRESENT: no acute distress, cooperative, well-developed, well-nourished Head exam: PRESENT: atraumatic, normocephalic Eye exam: PRESENT: conjunctiva pink, EOMI, PERRLA Ear exam: PRESENT: normal external ear exam Neck exam: PRESENT: full ROM. ABSENT: JVD, lymphadenopathy, tenderness, thyromegaly Respiratory exam: PRESENT: clear to auscultation bettie Cardiovascular exam: PRESENT: RRR. ABSENT: diastolic murmur, systolic murmur Vascular exam: PRESENT: normal capillary refill GI/Abdominal exam: PRESENT: normal bowel sounds, soft. ABSENT: tenderness Extremities exam: PRESENT: full ROM. ABSENT: pedal edema Musculoskeletal exam: PRESENT: ambulatory Neurological exam: PRESENT: alert, awake, oriented to person, oriented to place , oriented to time, oriented to situation, motor sensory deficit Psychiatric exam: PRESENT: appropriate affect, normal mood Skin exam: PRESENT: normal color Results Impressions: Chest X-Ray 02/13/18 00:32 IMPRESSION: 1. No acute pneumonic process identified. Head CT 02/13/18 00:33 IMPRESSION: 1. No acute intracranial abnormality identified. This exam was performed according to our departmental dose-optimization program, which includes automated exposure control, adjustment of the mA and/or kV according to patient size and/or use of iterative reconstruction technique. Assessment & Plan - Diagnosis (1) UTI (urinary tract infection) Qualifiers: Urinary tract infection type: site unspecified Hematuria presence: with hematuria Qualified Code(s): N39.0 - Urinary tract infection, site not specified; R31.9 - Hematuria, unspecified; R31.9 - Hematuria, unspecified Is this a current diagnosis for this admission?: Yes Plan: Urine culture pending. Will continue cefepime. (2) Sepsis Qualifiers: Sepsis type: sepsis due to unspecified organism Qualified Code(s): A41.9 - Sepsis, unspecified organism Is this a current diagnosis for this admission?: Yes Plan: Patient on chemotherapy and immunosuppressed. Will order CT of the chest (3) History of colon cancer, stage IV Is this a current diagnosis for this admission?: Yes Plan: Patient getting chemotherapy on a weekly basis and recently treated with Neulasta (4) Leukocytosis Qualifiers: Leukocytosis type: unspecified Qualified Code(s): D72.829 - Elevated white blood cell count, unspecified Is this a current diagnosis for this admission?: Yes Plan: Likely reactive due to Neulasta treatment (5) Anemia Qualifiers: Anemia type: unspecified type Qualified Code(s): D64.9 - Anemia, unspecified Is this a current diagnosis for this admission?: Yes Plan: Will trend - Time Time Spent with patient: 15-24 minutes Medications reviewed and adjusted accordingly: Yes Anticipated discharge: Home Within: within 72 hours - Inpatient Certification Based on my medical assessment, after consideration of the patient's comorbidities, presenting symptoms, or acuity I expect that the services needed warrant INPATIENT care.: Yes I certify that my determination is in accordance with my understanding of Medicare's requirements for reasonable and necessary INPATIENT services [42 CFR 412.3e].: Yes Medical Necessity: Need Close Monitoring Due to Risk of Patient Decompensation, Need For IV Fluids, Need for IV Antibiotics
--- NOTE | 2018-02-13 17:46 | RADIOLOGY REPORT (SQ) ---
EXAM DESCRIPTION: CT CHEST WITH COMPLETED DATE/TIME: 02/13/2018 5:34 pm REASON FOR STUDY: LEUKOCYTOSIS COMPARISON: Chest radiograph TECHNIQUE: CT scan of the chest performed using helical scanning technique with dynamic intravenous contrast injection. Images reviewed with lung, soft tissue and bone windows. Reconstructed coronal and sagittal MPR images reviewed. All images stored on PACS. All CT scanners at this facility use dose modulation, iterative reconstruction, and/or weight based d osing when appropriate to reduce radiation dose to as low as reasonably achievable (ALARA). [facility]: Dose Right [facility]: CareDose [facility]: Dose Right [facility]: Teradose 4D [facility]: Artsy CONTRAST TYPE AND DOSE: 80 Isovue 370- low osmolar. RENAL FUNCTION: Not recorded RADIATION DOSE: CT Rad equipment meets quality standard of care and radiation dose reduction techniq ues were employed. CTDIvol: 6.2 mGy. DLP: 235 mGy-cm. . LIMITATIONS: None. FINDINGS: LUNGS AND PLEURA: No opacities, nodules, masses. No pneumothorax. No effusions. HILAR AND MEDIASTINAL STRUCTURES: No identified masses or abnormal nodes. HEART AND VASCULAR STRUCTURES: No aneurysm or dissection. No central pulmonary emboli. No pericardi al effusion. HARDWARE: None in the chest. UPPER ABDOMEN: Known metastatic disease to the liver. Renal stents. THYROID AND OTHER SOFT TISSUES: No masses. No adenopathy. BONES: No significant finding. OTHER: No other significant finding. IMPRESSION: No acute pulmonary disease. Known metastatic disease to the liver. TECHNICAL DOCUMENTATION: JOB ID: [id number] Quality ID # [id number]: Final reports with documentation of one or more dose reduction techniques (e.g., Au tomated exposure control, adjustment of the mA and/or kV according to patient size, use of iterative reconstruction technique) 2010 [employer]- All Rights Reserved Reading location - IP/workstation name: [email or web address]
--- NOTE | 2018-02-13 21:41 | EKG REPORT ---
SEVERITY:- NORMAL ECG - SINUS RHYTHM : Confirmed by: Dilia Moraes 13-Feb-2018 21:40:46
[2018-02-14] MEDS: LANSOPRAZOLE 30 MG TAB.RAP.DR PO SCH (06:18)
[2018-02-14 07:46] LABS: HEMATOCRIT 33.5 % (36.0-47.0); MEAN CORPUSCULAR HEMOGLOBIN 27.9 pg (27.0-33.4); MEAN CORPUSCULAR HGB CONC 32.7 g/dL (32.0-36.0); MEAN CORPUSCULAR VOLUME 85 fl (80-97); PLATELET COUNT 218 10^3/uL (150-450); RED BLOOD COUNT 3.94 10^6/uL (3.72-5.28)
[2018-02-14 07:55] LABS: ANION GAP 9 (5-19); BLOOD UREA NITROGEN 17 mg/dL (7-20); CALCIUM 9.3 mg/dL (8.4-10.2); CARBON DIOXIDE 24 mmol/L (22-30); CHLORIDE 108 mmol/L (98-107); GLUCOSE 70 mg/dL (75-110); POTASSIUM 4.1 mmol/L (3.6-5.0); SODIUM 140.7 mmol/L (137-145)
[2018-02-14 08:41] LABS: WHITE BLOOD COUNT 48.2 10^3/uL (4.0-10.5)
[2018-02-14 08:48] LABS: ABSOLUTE LYMPHOCYTES# (MANUAL) 2.4 10^3/uL (0.5-4.7); ABSOLUTE NEUTROPHILS# (MANUAL) 45.8 10^3/uL (1.7-8.2); BASOPHILS % (MANUAL) 0 % (0-2); EOSINOPHILS % (MANUAL) 0 % (0-6); LYMPHOCYTES % (MANUAL) 5 % (13-45); MONOCYTES % (MANUAL) 0 % (3-13); SEGMENTED NEUTROPHILS % (MAN) 95 % (42-78); TOTAL CELLS COUNTED 100
[2018-02-14 08:49] LABS: TOXIC GRANULATION 1+
[2018-02-14 08:50] LABS: ANISOCYTOSIS 2+; PLATELET COMMENT ADEQUATE
[2018-02-14] MEDS: ENOXAPARIN SODIUM INJ 40 MG/0.4 ML DISP.SYRIN SUBCUT SCH (09:36)
[2018-02-14] MEDS: CEFEPIME 1 GM/D5W RTU 1 GM/50 ML RTUPB IV SCH ×2 (09:37→21:02)
--- NOTE | 2018-02-14 13:37 | PDOC PROGRESS REPORT ---
Subjective Progress Note for:: 02/14/18 Subjective:: Patient refers that feels better however she still not having good appetite primarily in the morning Review of systems All organ systems evaluated and negative except as in subjective All significant laboratories and diagnostics have been reviewed Reason For Visit: SEPSIS, UTI Physical Exam Vital Signs: Temp Pulse Resp BP Pulse Ox 99.1 F 79 18 128/83 H 99 02/14/18 08:19 02/14/18 08:19 02/14/18 08:19 02/14/18 08:19 02/14/18 08:19 Intake & Output 02/13/18 02/14/18 02/15/18 06:59 06:59 06:59 Intake Total 1320 Balance 1320 Weight 60.8 kg 57.9 kg General appearance: PRESENT: no acute distress, cooperative, well-developed, well-nourished Head exam: PRESENT: atraumatic, normocephalic Eye exam: PRESENT: conjunctiva pink, EOMI, PERRLA Ear exam: PRESENT: normal external ear exam Mouth exam: PRESENT: moist Neck exam: PRESENT: full ROM. ABSENT: JVD, lymphadenopathy, tenderness Respiratory exam: PRESENT: clear to auscultation bettie Cardiovascular exam: PRESENT: RRR. ABSENT: diastolic murmur, systolic murmur Vascular exam: PRESENT: normal capillary refill GI/Abdominal exam: PRESENT: normal bowel sounds, soft. ABSENT: tenderness Extremities exam: PRESENT: full ROM. ABSENT: tenderness Musculoskeletal exam: PRESENT: ambulatory Neurological exam: PRESENT: alert, awake, oriented to person, oriented to place , oriented to time, oriented to situation, CN II-XII grossly intact Psychiatric exam: PRESENT: appropriate affect, normal mood Skin exam: PRESENT: intact, normal color Results Laboratory Results: 02/14/18 07:03 02/14/18 07:03 02/14/18 02/14/18 07:03 07:03 WBC 48.2 H* RBC 3.94 Hgb 11.0 L Hct 33.5 L MCV 85 MCH 27.9 MCHC 32.7 RDW 18.0 H Plt Count 218 Seg Neutrophils % Not Reportable Lymphocytes % Not Reportable Monocytes % Not Reportable Eosinophils % Not Reportable Basophils % Not Reportable Absolute Neutrophils Not Reportable Absolute Lymphocytes Not Reportable Absolute Monocytes Not Reportable Absolute Eosinophils Not Reportable Absolute Basophils Not Reportable Sodium 140.7 Potassium 4.1 Chloride 108 H Carbon Dioxide 24 Anion Gap 9 BUN 17 Creatinine 0.89 Est GFR ( Amer) > 60 Est GFR (Non-Af Amer) > 60 Glucose 70 L Calcium 9.3 Impressions: Chest CT 02/13/18 00:00 IMPRESSION: No acute pulmonary disease. Known metastatic disease to the liver. Chest X-Ray 02/13/18 00:32 IMPRESSION: 1. No acute pneumonic process identified. Head CT 02/13/18 00:33 IMPRESSION: 1. No acute intracranial abnormality identified. This exam was performed according to our departmental dose-optimization program, which includes automated exposure control, adjustment of the mA and/or kV according to patient size and/or use of iterative reconstruction technique. Assessment & Plan - Diagnosis (1) UTI (urinary tract infection) Qualifiers: Urinary tract infection type: site unspecified Hematuria presence: with hematuria Qualified Code(s): N39.0 - Urinary tract infection, site not specified; R31.9 - Hematuria, unspecified; R31.9 - Hematuria, unspecified Is this a current diagnosis for this admission?: Yes Plan: Urine culture still pending. Will continue cefepime. (2) Sepsis Qualifiers: Sepsis type: sepsis due to unspecified organism Qualified Code(s): A41.9 - Sepsis, unspecified organism Is this a current diagnosis for this admission?: Yes Plan: Patient on chemotherapy and immunosuppressed. CT of the chest negative for infiltrates (3) History of colon cancer, stage IV Is this a current diagnosis for this admission?: Yes Plan: Patient getting chemotherapy on a weekly basis and recently treated with Neulasta (4) Leukocytosis Qualifiers: Leukocytosis type: unspecified Qualified Code(s): D72.829 - Elevated white blood cell count, unspecified Is this a current diagnosis for this admission?: Yes Plan: Likely reactive due to Neulasta treatment. Trending down (5) Anemia Qualifiers: Anemia type: unspecified type Qualified Code(s): D64.9 - Anemia, unspecified Is this a current diagnosis for this admission?: Yes Plan: Stable (6) Poor appetite Is this a current diagnosis for this admission?: Yes Plan: Will try Zyprexa - Time Time Spent with patient: 15-24 minutes Medications reviewed and adjusted accordingly: Yes Anticipated discharge: Home Within: within 48 hours - Inpatient Certification Based on my medical assessment, after consideration of the patient's comorbidities, presenting symptoms, or acuity I expect that the services needed warrant INPATIENT care.: Yes I certify that my determination is in accordance with my understanding of Medicare's requirements for reasonable and necessary INPATIENT services [42 CFR 412.3e].: Yes Medical Necessity: Need Close Monitoring Due to Risk of Patient Decompensation, Need for IV Antibiotics
[2018-02-14] MEDS: OLANZAPINE 2.5 MG TABLET PO SCH (21:03)
[2018-02-15 04:46] LABS: HEMOGLOBIN 10.9 g/dL (12.0-15.5); MEAN CORPUSCULAR HEMOGLOBIN 27.9 pg (27.0-33.4); MEAN CORPUSCULAR HGB CONC 32.9 g/dL (32.0-36.0); MEAN CORPUSCULAR VOLUME 85 fl (80-97); PLATELET COUNT 214 10^3/uL (150-450); RED BLOOD COUNT 3.89 10^6/uL (3.72-5.28); RED CELL DISTRIBUTION WIDTH 18.3 % (11.5-14.0)
[2018-02-15 05:06] LABS: ANION GAP 13 (5-19); BLOOD UREA NITROGEN 15 mg/dL (7-20); CALCIUM 9.3 mg/dL (8.4-10.2); CARBON DIOXIDE 24 mmol/L (22-30); CHLORIDE 108 mmol/L (98-107); GLUCOSE 74 mg/dL (75-110); SODIUM 145.1 mmol/L (137-145)
[2018-02-15 05:25] LABS: WHITE BLOOD COUNT 40.1 10^3/uL (4.0-10.5)
[2018-02-15 05:26] LABS: ABSOLUTE LYMPHOCYTES# (MANUAL) 1.2 10^3/uL (0.5-4.7); ABSOLUTE NEUTROPHILS# (MANUAL) 38.9 10^3/uL (1.7-8.2); BASOPHILS % (MANUAL) 0 % (0-2); EOSINOPHILS % (MANUAL) 0 % (0-6); LYMPHOCYTES % (MANUAL) 3 % (13-45); MONOCYTES % (MANUAL) 0 % (3-13); SEGMENTED NEUTROPHILS % (MAN) 97 % (42-78); TOTAL CELLS COUNTED 100
[2018-02-15 05:27] LABS: ANISOCYTOSIS 1+; PLATELET COMMENT ADEQUATE; POIKILOCYTOSIS SLIGHT
[2018-02-15] MEDS: LANSOPRAZOLE 30 MG TAB.RAP.DR PO SCH (05:47)
[2018-02-15] MEDS ORDERED: ACETAMINOPHEN 325 MG TABLET PO PRN (08:29)
[2018-02-15] MEDS: ENOXAPARIN SODIUM INJ 40 MG/0.4 ML DISP.SYRIN SUBCUT SCH (09:26)
[2018-02-15] MEDS: AMLODIPINE BESYLATE 5 MG TABLET PO SCH (12:16)
[2018-02-15] MEDS: LEVOFLOXACIN 750 MG TABLET PO SCH (12:16)
--- NOTE | 2018-02-15 14:16 | PDOC PROGRESS REPORT ---
Subjective Progress Note for:: 02/15/18 Subjective:: Patient refers that feels better. She was able to sleep last night and had breakfast this morning Review of systems All organ systems evaluated and negative except as in subjective All significant laboratories and diagnostics have been reviewed Reason For Visit: SEPSIS, UTI Physical Exam Vital Signs: Temp Pulse Resp BP Pulse Ox 98.6 F 74 18 140/87 H 97 02/15/18 08:00 02/15/18 08:00 02/15/18 08:00 02/15/18 08:00 02/15/18 08:00 Intake & Output 02/14/18 02/15/18 02/16/18 06:59 06:59 06:59 Intake Total 1320 1260 Output Total 1000 Balance 1320 260 Weight 57.9 kg 56.5 kg General appearance: PRESENT: no acute distress, cooperative, well-developed, well-nourished Head exam: PRESENT: atraumatic, normocephalic Eye exam: PRESENT: conjunctiva pink, EOMI, PERRLA Ear exam: PRESENT: normal external ear exam Mouth exam: PRESENT: moist Neck exam: PRESENT: full ROM. ABSENT: JVD, lymphadenopathy, tenderness Cardiovascular exam: PRESENT: RRR. ABSENT: diastolic murmur, systolic murmur Vascular exam: PRESENT: normal capillary refill GI/Abdominal exam: PRESENT: normal bowel sounds, soft. ABSENT: tenderness Extremities exam: PRESENT: full ROM. ABSENT: pedal edema Musculoskeletal exam: PRESENT: ambulatory Neurological exam: PRESENT: alert, awake, oriented to person, oriented to place , oriented to time, oriented to situation. ABSENT: CN II-XII grossly intact Psychiatric exam: PRESENT: appropriate affect, normal mood Skin exam: PRESENT: erythema, normal color Results Laboratory Results: 02/15/18 03:49 02/15/18 03:49 02/14/18 02/15/18 02/15/18 07:03 03:49 03:49 WBC 48.2 H* 40.1 H* RBC 3.94 3.89 Hgb 11.0 L 10.9 L Hct 33.5 L 33.0 L MCV 85 85 MCH 27.9 27.9 MCHC 32.7 32.9 RDW 18.0 H 18.3 H Plt Count 218 214 Seg Neutrophils % Not Reportable Not Reportable Lymphocytes % Not Reportable Not Reportable Monocytes % Not Reportable Not Reportable Eosinophils % Not Reportable Not Reportable Basophils % Not Reportable Not Reportable Absolute Neutrophils Not Reportable Not Reportable Absolute Lymphocytes Not Reportable Not Reportable Absolute Monocytes Not Reportable Not Reportable Absolute Eosinophils Not Reportable Not Reportable Absolute Basophils Not Reportable Not Reportable Sodium 145.1 H Potassium 4.0 Chloride 108 H Carbon Dioxide 24 Anion Gap 13 BUN 15 Creatinine 0.80 Est GFR ( Amer) > 60 Est GFR (Non-Af Amer) > 60 Glucose 74 L Calcium 9.3 Impressions: Chest CT 02/13/18 00:00 IMPRESSION: No acute pulmonary disease. Known metastatic disease to the liver. Chest X-Ray 02/13/18 00:32 IMPRESSION: 1. No acute pneumonic process identified. Head CT 02/13/18 00:33 IMPRESSION: 1. No acute intracranial abnormality identified. This exam was performed according to our departmental dose-optimization program, which includes automated exposure control, adjustment of the mA and/or kV according to patient size and/or use of iterative reconstruction technique. Assessment & Plan - Diagnosis (1) UTI (urinary tract infection) Qualifiers: Urinary tract infection type: site unspecified Hematuria presence: with hematuria Qualified Code(s): N39.0 - Urinary tract infection, site not specified; R31.9 - Hematuria, unspecified; R31.9 - Hematuria, unspecified Is this a current diagnosis for this admission?: Yes Plan: Urine culture result mixed baldemar therefore ruling out urinary tract infection. (2) Sepsis Qualifiers: Sepsis type: sepsis due to unspecified organism Qualified Code(s): A41.9 - Sepsis, unspecified organism Is this a current diagnosis for this admission?: Yes Plan: Patient on chemotherapy and immunosuppressed. CT of the chest negative for infiltrates. Cultures so far negative. Discontinue cefepime and transition to Levaquin (3) History of colon cancer, stage IV Is this a current diagnosis for this admission?: Yes Plan: Patient getting chemotherapy on a weekly basis and recently treated with Neulasta. Her onclogist is Dr Kelly (4) Leukocytosis Qualifiers: Leukocytosis type: unspecified Qualified Code(s): D72.829 - Elevated white blood cell count, unspecified Is this a current diagnosis for this admission?: Yes Plan: Improving and likely due to Neulasta (5) Anemia Qualifiers: Anemia type: unspecified type Qualified Code(s): D64.9 - Anemia, unspecified Is this a current diagnosis for this admission?: Yes Plan: Stable (6) Poor appetite Is this a current diagnosis for this admission?: Yes Plan: Ate all breakfast this morning and will continue Zyprexa (7) HTN (hypertension) Qualifiers: Hypertension type: essential hypertension Qualified Code(s): I10 - Essential (primary) hypertension Is this a current diagnosis for this admission?: Yes Plan: Start Norvasc 5 mg 1 p.o. daily and follow-up response. Patient notified - Time Time Spent with patient: 15-24 minutes Medications reviewed and adjusted accordingly: Yes Anticipated discharge: Home Within: within 24 hours - Inpatient Certification Based on my medical assessment, after consideration of the patient's comorbidities, presenting symptoms, or acuity I expect that the services needed warrant INPATIENT care.: Yes I certify that my determination is in accordance with my understanding of Medicare's requirements for reasonable and necessary INPATIENT services [42 CFR 412.3e].: Yes Medical Necessity: Significant Comorbidiites Make Outpatient Treatment Too Risky , Need Close Monitoring Due to Risk of Patient Decompensation
[2018-02-15] MEDS: OLANZAPINE 2.5 MG TABLET PO SCH (21:26)
[2018-02-16] MEDS: LANSOPRAZOLE 30 MG TAB.RAP.DR PO SCH (05:16)
[2018-02-16 06:47] LABS: HEMATOCRIT 34.5 % (36.0-47.0); HEMOGLOBIN 11.3 g/dL (12.0-15.5); MEAN CORPUSCULAR HEMOGLOBIN 27.9 pg (27.0-33.4); MEAN CORPUSCULAR HGB CONC 32.8 g/dL (32.0-36.0); MEAN CORPUSCULAR VOLUME 85 fl (80-97); PLATELET COUNT 225 10^3/uL (150-450); RED BLOOD COUNT 4.04 10^6/uL (3.72-5.28); RED CELL DISTRIBUTION WIDTH 17.7 % (11.5-14.0); WHITE BLOOD COUNT 21.3 10^3/uL (4.0-10.5)
[2018-02-16 07:04] LABS: ANION GAP 11 (5-19); BLOOD UREA NITROGEN 15 mg/dL (7-20); CALCIUM 9.5 mg/dL (8.4-10.2); CARBON DIOXIDE 26 mmol/L (22-30); CHLORIDE 106 mmol/L (98-107); GLUCOSE 75 mg/dL (75-110); POTASSIUM 4.2 mmol/L (3.6-5.0); SODIUM 142.8 mmol/L (137-145)
[2018-02-16 07:28] LABS: ABSOLUTE LYMPHOCYTES# (MANUAL) 1.3 10^3/uL (0.5-4.7); BASOPHILS % (MANUAL) 0 % (0-2); EOSINOPHILS % (MANUAL) 0 % (0-6); LYMPHOCYTES % (MANUAL) 6 % (13-45); MONOCYTES % (MANUAL) 0 % (3-13); SEGMENTED NEUTROPHILS % (MAN) 94 % (42-78); TOTAL CELLS COUNTED 100
[2018-02-16 07:30] LABS: ANISOCYTOSIS 1+; OVALOCYTES SLIGHT; PLATELET COMMENT ADEQUATE; POIKILOCYTOSIS 1+; TEAR DROP CELLS SLIGHT; TOXIC GRANULATION SLIGHT
[2018-02-16] MEDS: ENOXAPARIN SODIUM INJ 40 MG/0.4 ML DISP.SYRIN SUBCUT SCH (09:41)
[2018-02-16] MEDS: LEVOFLOXACIN 750 MG TABLET PO SCH (11:35)
[2018-02-16] MEDS: AMLODIPINE BESYLATE 5 MG TABLET PO SCH (11:36)
[2018-02-16 12:39] VITALS: BP 152/89
--- NOTE | 2018-02-16 15:55 | PDOC DISCHARGE SUMMARY ---
General - Admit/Disc Date/PCP Admission Date/Primary Care Provider: 02/13/18 04:01 COLLEEN HURD PA-C Discharge Date: 02/16/18 - Discharge Diagnosis (1) Sepsis Is this a current diagnosis for this admission?: Yes (2) Leukocytosis Is this a current diagnosis for this admission?: Yes (3) Anemia Is this a current diagnosis for this admission?: Yes (4) UTI (urinary tract infection) Is this a current diagnosis for this admission?: No (5) Poor appetite Is this a current diagnosis for this admission?: Yes (6) HTN (hypertension) Is this a current diagnosis for this admission?: Yes (7) History of colon cancer, stage IV Is this a current diagnosis for this admission?: Yes (8) History of cancer chemotherapy Is this a current diagnosis for this admission?: Yes - Additional Information Resuscitation Status: Full Code Discharge Diet: Regular Discharge Activity: Activity As Tolerated Prescriptions: Amlodipine Besylate [Norvasc 5 mg Tablet] 5 mg PO DAILY@1200 #30 tablet Levofloxacin [Levaquin 750 mg Tablet] 750 mg PO DAILY@1200 #7 tablet Olanzapine [Zyprexa 2.5 mg Tablet] 2.5 mg PO QHS #30 tablet Home Medications: Amlodipine Besylate [Norvasc 5 mg Tablet] 5 mg PO DAILY@1200 #30 tablet Levofloxacin [Levaquin 750 mg Tablet] 750 mg PO DAILY@1200 #7 tablet 02/16/18 Olanzapine [Zyprexa 2.5 mg Tablet] 2.5 mg PO QHS #30 tablet 02/16/18 History of Present Illness History of Present Illness: ISIS GATES is a 57 year old female black female patient who is known case of stage IV colon cancer and has been on chemotherapy every . The day prior to presentation, several hours after she got her chemo, patient started to have fever, chills, shaking and dizziness. She claimed that this was the first time she experienced such situation after chemo. Her initial workup showed markedly elevated white cell count of 55,000 and her urinalysis was positive for leukocyte esterase and WBC. Leukocytosis was attributed to Neulasta per her oncologist. Patient endorsed nausea but no vomiting or abdominal pain or diarrhea. She had dizziness but no headache or blurring of vision. She did not have urgency, frequency, hematuria or dysuria. Due to presentation patient was admitted under the hospitalist service Hospital Course Hospital Course: Patient was admitted under the hospitalist service with an initial impression of sepsis secondary to urinary tract infection. She was covered with broad- spectrum antibiotic. Urine culture proved to be negative, therefore urinary tract infection was ruled out. CT of the chest was obtained which failed to demonstrate any pneumonic infiltrates. Patient's medical condition began to improve within the first 24 hours. White blood cell count trended down. Blood cultures were negative. Patient was transitioned to oral Levaquin since patient is immunosuppressed due to cancer therapy. We placed patient on Zyprexa since helps with nausea, insomnia and improves appetite. Patient reported improvment of all three. We opted to discontinue Megace since contraindicated in geriatric patients. We held Neulasta. We advised patient to follow-up with her oncologist for further instructions as far as reassuming medication and chemotherapy. Blood pressure was trended and elevated. Responded to Norvasc 5 mg 1 p.o. daily. Since patient had achieved maximum benefit of hospitalization stay prompted to discharge under stable condition Physical Exam Vital Signs: Temp Pulse Resp BP Pulse Ox 98.6 F 83 16 129/79 H 100 02/16/18 00:17 02/16/18 00:17 02/16/18 00:17 02/16/18 00:17 02/16/18 00:17 Intake & Output 02/15/18 02/16/18 02/17/18 06:59 06:59 06:59 Intake Total 1260 855 Output Total 1000 400 Balance 260 455 Weight 56.5 kg 55 kg General appearance: PRESENT: no acute distress, cooperative, well-developed, well-nourished Head exam: PRESENT: atraumatic, normocephalic Eye exam: PRESENT: conjunctiva pink, EOMI, PERRLA Ear exam: PRESENT: normal external ear exam Mouth exam: PRESENT: moist Neck exam: PRESENT: full ROM. ABSENT: JVD, lymphadenopathy, tenderness Respiratory exam: PRESENT: clear to auscultation bettie Cardiovascular exam: PRESENT: RRR. ABSENT: diastolic murmur, systolic murmur Vascular exam: PRESENT: normal capillary refill GI/Abdominal exam: PRESENT: Good's sign, soft. ABSENT: tenderness Neurological exam: PRESENT: alert, awake, oriented to person, oriented to place , oriented to time, oriented to situation, CN II-XII grossly intact Psychiatric exam: PRESENT: appropriate affect, normal mood Skin exam: PRESENT: intact, normal color Results Laboratory Results: 02/16/18 05:34 02/16/18 02/16/18 05:34 05:34 Seg Neutrophils % Not Reportable Lymphocytes % Not Reportable Monocytes % Not Reportable Eosinophils % Not Reportable Basophils % Not Reportable Absolute Neutrophils Not Reportable Absolute Lymphocytes Not Reportable Absolute Monocytes Not Reportable Absolute Eosinophils Not Reportable Absolute Basophils Not Reportable Sodium 142.8 Potassium 4.2 Chloride 106 Carbon Dioxide 26 Anion Gap 11 BUN 15 Creatinine 0.87 Est GFR ( Amer) > 60 Est GFR (Non-Af Amer) > 60 Glucose 75 Calcium 9.5 Impressions: Chest CT 02/13/18 00:00 IMPRESSION: No acute pulmonary disease. Known metastatic disease to the liver. Chest X-Ray 02/13/18 00:32 IMPRESSION: 1. No acute pneumonic process identified. Head CT 02/13/18 00:33 IMPRESSION: 1. No acute intracranial abnormality identified. This exam was performed according to our departmental dose-optimization program, which includes automated exposure control, adjustment of the mA and/or kV according to patient size and/or use of iterative reconstruction technique. Qualifiers - * PATIENT BEING DISCHARGED WITH ANY OF THE FOLLOWING DIAGNOSIS: No Plan Discharge Plan: Discharge home. Patient advised to follow-up with PCP as scheduled and with oncologist, Dr Kelly Time Spent: Greater than 30 Minutes
== END 2018-02-16 13:20 | disposition home or self-care (01) | DRG 690 ==
LOC: ER 00:07 → OBSVTOIN 04:01 → EH 04:01 → 4S 05:45 → 4W 02-15 23:55
PROVIDERS: ADMIT Internal Medicine; ATTEND Internal Medicine
DX: N39.0 Urinary tract infection, site not specified (principal); C18.9 Malignant neoplasm of colon, unspecified; C78.7 Secondary malignant neoplasm of liver and intrahepatic bile duct; E86.0 Dehydration; R31.9 Hematuria, unspecified; R19.7 Diarrhea, unspecified; F41.9 Anxiety disorder, unspecified; F32.9 Major depressive disorder, single episode, unspecified; Z96.0 Presence of urogenital implants; R55 Syncope and collapse; E87.6 Hypokalemia; D63.0 Anemia in neoplastic disease; Z79.899 Other long term (current) drug therapy; Z80.42 Family history of malignant neoplasm of prostate; Z82.49 Family history of ischemic heart disease and other diseases of the circulatory system; Z92.25 Personal history of immunosuppression therapy
CPT/HCPCS: 36415; 70450; 71045; 71260; 80048; 80053; 81001; 84484; 85025; 87040; 87086; 93005; 93010; 96365; 99285; J0692; J0696; J1650; J2405; J3490; J7040

== ENCOUNTER → 2018-05-04 | Outpatient (CLI) | payer MEDICARE, MEDICAID ==
--- NOTE | 2018-05-04 11:00 | RADIOLOGY REPORT (SQ) ---
EXAM DESCRIPTION: CT CHEST WITH COMPLETED DATE/TIME: 05/04/2018 10:01 am REASON FOR STUDY: MALIGNANT NEOPLASM OF COLON, UNSPECIFIED C18.9 MALIGNANT NEOPLASM OF COLON, UNSPE CIFIED COMPARISON: 02/13/2018 TECHNIQUE: CT scan of the chest performed using helical scanning technique with dynamic intravenous contrast injection. Images reviewed with lung, soft tissue and bone windows. Reconstructed coronal and sagittal MPR images reviewed. All images stored on PACS. All CT scanners at this facility use dose modulation, iterative reconstruction, and/or weight based d osing when appropriate to reduce radiation dose to as low as reasonably achievable (ALARA). [facility]: Dose Right [facility]: CareDose [facility]: Dose Right [facility]: Teradose 4D [facility]: [employer] CONTRAST TYPE AND DOSE: 76 cc Isovue 370 RENAL FUNCTION: Creatinine- 0.8 BUN=14 RADIATION DOSE: Total exam DLP: 1055.57 LIMITATIONS: None. FINDINGS: LUNGS AND PLEURA: Small focal small areas of nodular opacities in the region of the left lingula, left lower lobe and right middle lobe, may be on the basis of atelectasis. No pneumothorax or pleural effusion. The central airways are clear. HILAR AND MEDIASTINAL STRUCTURES: No significant interval changes. HEART AND VASCULAR STRUCTURES: No aneurysm or dissection. Incomplete opacification of the pulmonary vasculature limits evaluation for central pulmonary emboli. No pericardial effusion. HARDWARE: Left Dmzrzm-L-Rhtw catheter, stable finding. UPPER ABDOMEN: Please see CT abdomen report. THYROID AND OTHER SOFT TISSUES: No masses. No adenopathy. BONES: The osseous structures are stable in appearance. OTHER: No other significant finding. IMPRESSION: 1 Small focal areas of nodular opacities in the region of the left lingula, left lower l obe and right middle lobe, may represent atelectasis. These findings are new since the prior study d ated 02/13/2018. 2 No other significant interval changes. TECHNICAL DOCUMENTATION: JOB ID: [id number] Quality ID # [id number]: Final reports with documentation of one or more dose reduction techniques (e.g., Au tomated exposure control, adjustment of the mA and/or kV according to patient size, use of iterative reconstruction technique) 2010 [employer]- All Rights Reserved Reading location - IP/workstation name: [email or web address]
--- NOTE | 2018-05-04 12:06 | RADIOLOGY REPORT (SQ) ---
EXAM DESCRIPTION: CT ABD/PELVIS WITH IV ORAL COMPLETED DATE/TIME: 05/04/2018 10:01 am REASON FOR STUDY: MALIGNANT NEOPLASM OF COLON, UNSPECIFIED C18.9 MALIGNANT NEOPLASM OF COLON, UNSPE CIFIED COMPARISON: 01/23/2018 TECHNIQUE: CT scan of the abdomen and pelvis performed using helical scanning technique with dynamic intravenous contrast injection. No oral contrast. Images reviewed with lung, soft tissue, and bone windows. Reconstructed coronal and sagittal MPR images reviewed. Delayed images for evaluation of the urinary system also acquired. All images stored on PACS. All CT scanners at this facility use dose modulation, iterative reconstruction, and/or weight based d osing when appropriate to reduce radiation dose to as low as reasonably achievable (ALARA). [facility]: Dose Right [facility]: CareDose [facility]: Dose Right [facility]: Teradose 4D [facility]: [employer] CONTRAST TYPE AND DOSE: contrast/concentration: Isovue 370.00 mg/ml; Total Contrast Delivered: 76.0 ml; Total Saline Delivered: 67.0 ml RENAL FUNCTION: Creatinine - 0.8 BUN=14 RADIATION DOSE: CT Rad equipment meets quality standard of care and radiation dose reduction techniq ues were employed. CTDIvol: 4.6 - 5.7 mGy. DLP: 1056 mGy-cm.. LIMITATIONS: None. FINDINGS: LOWER CHEST: Please see CT chest report. LIVER: Stable appearing hepatic lesions since the prior study dated 01/23/2018. Hepatomegaly, unchang ed finding. SPLEEN: Normal size. No focal lesions. PANCREAS: No masses. No significant calcifications. No adjacent inflammation or peripancreatic fluid collections. Pancreatic duct not dilated. GALLBLADDER: Stable gallstones. No inflammatory changes to suggest cholecystitis. ADRENAL GLANDS: No significant masses or asymmetry. RIGHT KIDNEY AND URETER: Stable appearance to the right kidney. Right ureteral stent, unchanged in position. LEFT KIDNEY AND URETER: Left ureteral stent, unchanged in position. Stable appearance to the left k idney. AORTA AND VESSELS: No aneurysm. No dissection. Renal arteries, SMA, celiac without stenosis. RETROPERITONEUM: Stable small retroperitoneal lymph nodes. BOWEL AND PERITONEAL CAVITY: Stable omental metastatic disease. No free fluid. Constipation. APPENDIX: Normal. PELVIS: The large lobulated partially calcified solid/cystic abdomino-pelvic mass, extending up into the abdomen to about the mid body of the L4 vertebra, represents a stable finding. As on the prior examination, there is extrinsic compression on the urinary bladder. No free fluid. ABDOMINAL WALL: No masses. No hernias. BONES: The osseous structures are stable in appearance. OTHER: No other significant finding. IMPRESSION: 1 No significant interval changes in the appearance of the hepatic lesions since the jeanine or examination dated 01/23/2018. 2 Large lobulated, partially calcified solid/cystic abdominopelvic mass, unchanged finding. 3. Stable appearing omental metastatic disease. 4. Additional stable findings as above. TECHNICAL DOCUMENTATION: JOB ID: [id number] Quality ID # [id number]: Final reports with documentation of one or more dose reduction techniques (e.g., Au tomated exposure control, adjustment of the mA and/or kV according to patient size, use of iterative reconstruction technique) 2010 [employer]- All Rights Reserved Reading location - IP/workstation name: [email or web address]
== END ==
LOC: RAD 09:28
PROVIDERS: ATTEND Internal Medicine Medical Oncology
DX: C18.9 Malignant neoplasm of colon, unspecified (principal)
CPT/HCPCS: 71260; 74177

== ENCOUNTER → 2018-08-21 | Outpatient (CLI) | payer MEDICARE, MEDICAID ==
--- NOTE | 2018-08-21 11:27 | RADIOLOGY REPORT (SQ) ---
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 Images reviewed with lung, soft tissue and bone windows. Reconstructed coronal a nd sagittal MPR images reviewed. All images stored on PACS. CT scan of the abdomen and pelvis performed with intravenous and with oral contrastusing helical scan diamante technique with dynamic intravenous contrast injection. Images reviewed with lung, soft tissue a nd bone windows. Reconstructed coronal and sagittal MPR images reviewed. Delayed images for evaluat ion of the urinary system also acquired and evaluated. All images stored on PACS. All CT scanners at this facility use dose modulation, iterative reconstruction, and/or weight based d osing when appropriate to reduce radiation dose to as low as reasonably achievable (ALARA). [facility]: Dose Right [facility]: CareDose [facility]: Dose Right [facility]: Teradose 4D [facility]: [employer] RADIATION DOSE: CT Rad equipment meets quality standard of care and radiation dose reduction techniq ues were employed. CTDIvol: 4.4 - 5.7 mGy. DLP: 791 mGy-cm. . LIMITATIONS: None. FINDINGS: CHEST: LUNGS AND PLEURA: No opacities, nodules, masses. No pneumothorax. No effusions. Findings described on CT chest 05/04/2018 are no longer identified HILAR AND MEDIASTINAL STRUCTURES: No identified masses or abnormal nodes. HEART AND VASCULAR STRUCTURES: No aneurysm or dissection. No central pulmonary emboli. No pericardi al effusion. The left antecubital vein was injected with contrast. The left subclavian vein is occl uded around a left permanent central line with the tip of the left brachiocephalic vein. There are m ultiple chest wall venous collaterals which enhance on the left side HARDWARE: None. THYROID AND OTHER SOFT TISSUES: No masses. No adenopathy. BONES: No significant finding. OTHER: No other significant finding. ABDOMEN AND PELVIS: LIVER: Further improvement in appearance of the liver compared to previous studies with index lesions as follows: 7 mm nodule right lobe liver image 22 (was 10 mm on 05/04/2018, was 2.4 cm on 09/30/2016). 7 mm nodule right lobe liver image 26 (was 9 mm 05/04/2018, was 1.6 cm 09/30/2016). 1.3 cm nodule inferior left lobe liver image 28 (was 1.9 cm 05/04/2018, was 2.6 cm 09/30/2016). SPLEEN: Normal size. No focal lesions. PANCREAS: No masses. No significant calcifications. No adjacent inflammation or peripancreatic fluid collections. Pancreatic duct not dilated. GALLBLADDER: Contracted around small gallstones. No pericholecystic fluid. ADRENAL GLANDS: No significant masses or asymmetry. RIGHT KIDNEY AND URETER: No solid masses. No significant calcification. Mild stable prominence of th e right renal pelvis. A right double-J stent is in place in good positioning. LEFT KIDNEY AND URETER: No solid masses. No significant calcification. No hydronephrosis or hydrouret er. Left double-J stent in place in good positioning. AORTA AND VESSELS: No aneurysm. No dissection. Renal arteries, SMA, celiac without stenosis. RETROPERITONEUM: No retroperitoneal adenopathy, hemorrhage or masses. BOWEL AND PERITONEAL CAVITY: Patient drank oral contrast. There is no evidence of bowel obstruction or free intraperitoneal air or fluid. 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 This contains post mucinous/cystic areas as well as calcification and solid areas, and measures 14 cm transverse by 11 cm AP x 20 cm craniocaudad, stable compared to previous exams. APPENDIX: Normal. ABDOMINAL WALL: No masses. No hernias. PELVIS: As above. BONES: No significant or acute findings. OTHER: No other significant finding. 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 No CT evidence of metastatic disease to the chest NORMAL CT OF THE ABDOMEN AND PELVIS WITH ORAL AND INTRAVENOUS CONTRAST. TECHNICAL DOCUMENTATION: JOB ID: [id number] Quality ID # [id number]: Final reports with documentation of one or more dose reduction techniques (e.g., Au tomated exposure control, adjustment of the mA and/or kV according to patient size, use of iterative reconstruction technique) 2010 [employer]- All Rights Reserved Reading location - IP/workstation name: [email or web address]
== END ==
LOC: RAD 09:09
PROVIDERS: ATTEND Internal Medicine Medical Oncology
DX: C19 Malignant neoplasm of rectosigmoid junction (principal)
CPT/HCPCS: 71260; 74177

== ENCOUNTER 2018-09-11 11:00 | Emergency (ER) | payer MEDICARE, MEDICAID ==
[2018-09-11 11:49] LABS: ALANINE AMINOTRANSFERASE 8 U/L (9-52); ALBUMIN 3.7 g/dL (3.5-5.0); ALKALINE PHOSPHATASE 82 U/L (38-126); ANION GAP 9 (5-19); ASPARTATE AMINO TRANSFERASE 20 U/L (14-36); BILIRUBIN,DIRECT 0.2 mg/dL (0.0-0.4); BLOOD UREA NITROGEN 26 mg/dL (7-20); CALCIUM 9.1 mg/dL (8.4-10.2); CARBON DIOXIDE 28 mmol/L (22-30); CHLORIDE 104 mmol/L (98-107); CREATINE KINASE 44 U/L (30-135); GLUCOSE 97 mg/dL (75-110); POTASSIUM 4.2 mmol/L (3.6-5.0); SODIUM 140.9 mmol/L (137-145); TOTAL PROTEIN 7.2 g/dL (6.3-8.2)
[2018-09-11 12:02] LABS: CREATINE KINASE MB < 0.22 ng/mL (<4.55); TROPONIN I < 0.012 ng/mL
[2018-09-11] MEDS ORDERED: NORMAL SALINE 1000 ML 1,000 ML IV ONE (12:04)
[2018-09-11] MEDS ORDERED: ONDANSETRON HCL INJ/PF 4 MG/2 ML SDV IV ONE (12:04)
[2018-09-11 12:45] LABS: HEMATOCRIT 38.1 % (36.0-47.0); HEMOGLOBIN 12.5 g/dL (12.0-15.5); MEAN CORPUSCULAR HEMOGLOBIN 27.8 pg (27.0-33.4); MEAN CORPUSCULAR HGB CONC 32.9 g/dL (32.0-36.0); MEAN CORPUSCULAR VOLUME 85 fl (80-97); PLATELET COUNT 177 10^3/uL (150-450); RED CELL DISTRIBUTION WIDTH 14.9 % (11.5-14.0); WHITE BLOOD COUNT 23.4 10^3/uL (4.0-10.5)
[2018-09-11 12:51] LABS: APPEARANCE,URINE CLOUDY; BILIRUBIN,URINE NEGATIVE (NEGATIVE); COLOR,URINE YELLOW; GLUCOSE, URINE NEGATIVE (NEGATIVE); KETONES,URINE NEGATIVE (NEGATIVE); LEUKOCYTE ESTERASE,URINE LARGE (NEGATIVE); NITRITE,URINE NEGATIVE (NEGATIVE); PROTEIN,URINE 100 mg/dL (NEGATIVE); URINE SPECIFIC GRAVITY 1.016
--- NOTE | 2018-09-11 13:28 | EKG REPORT ---
SEVERITY:- NORMAL ECG - SINUS RHYTHM : Confirmed by: Willy Troncoso MD 11-Sep-2018 13:28:01
[2018-09-11 13:29] LABS: ABSOLUTE LYMPHOCYTES# (MANUAL) 0.5 10^3/uL (0.5-4.7); ABSOLUTE MONOCYTES # (MANUAL) 0.7 10^3/uL (0.1-1.4); ABSOLUTE NEUTROPHILS# (MANUAL) 22.2 10^3/uL (1.7-8.2); BASOPHILS % (MANUAL) 0 % (0-2); EOSINOPHILS % (MANUAL) 0 % (0-6); LYMPHOCYTES % (MANUAL) 2 % (13-45); MONOCYTES % (MANUAL) 3 % (3-13); PLATELET COMMENT ADEQUATE; SEGMENTED NEUTROPHILS % (MAN) 95 % (42-78); TOTAL CELLS COUNTED 100; TOXIC GRANULATION SLIGHT; TOXIC VACUOLATION PRESENT
[2018-09-11 13:30] LABS: HYPOCHROMASIA SLIGHT; POLYCHROMASIA SLIGHT
--- NOTE | 2018-09-11 16:11 | ER Document Report ---
ED General - General Chief Complaint: Syncope Stated Complaint: POSSIBLE SYNCOPE Time Seen by Provider: 09/11/18 11:51 Mode of Arrival: Ambulatory Information source: Patient Notes: This is a 57-year-old female with a history of a static colon cancer who presents to the emergency room after fainting at home. Patient states that she received a shot in the office (Dr. Skelton) on and did not feel well after that shot. She did receive chemotherapy 2 days this week. She states that she has had this shot on (this shot particular turns out to be Neulasta) and she does not feel well after that shot sometimes. She denies any fever, chills, shortness of breath, abdominal pain, vomiting. She has had intermittent nausea. The patient does have history of renal stents (from an obstructive uropathy secondary to the cancer) and she gets those stents replaced every 3 or 4 months (her next appointment in [facility] for this is September 21). TRAVEL OUTSIDE OF THE [place] IN LAST 30 DAYS: No - HPI Onset: Just prior to arrival Onset/Duration: Sudden Quality of pain: No pain Severity: None Pain Level: Denies Associated symptoms: denies: Chest pain, Fever, Shortness of breath Exacerbated by: Denies Relieved by: Denies Similar symptoms previously: Yes Recently seen / treated by doctor: Yes - Related Data Allergies/Adverse Reactions: No Known Allergies Allergy (Verified 06/21/17 15:55) Past Medical History - General Information source: Patient - Social History Smoking Status: Never Smoker Cigarette use (# per day): No Chew tobacco use (# tins/day): No Frequency of alcohol use: Occasional Drug Abuse: None Lives with: Family Family History: Reviewed & Not Pertinent Patient has suicidal ideation: No Patient has homicidal ideation: No - Past Medical History Cardiac Medical History: Denies: Hx Atrial Fibrillation, Hx Congestive Heart Failure, Hx Coronary Artery Disease, Hx DVT, Hx Heart Attack, Hx Hypercholesterolemia, Hx Hypertension, Hx Pulmonary Embolism Pulmonary Medical History: Denies: Hx Asthma, Hx Bronchitis, Hx COPD, Hx Pneumonia, Hx Sleep Apnea Neurological Medical History: Reports: Hx Seizures - Last episode 1 or 2 years ago. Never on antiepileptic.. Denies: Hx Cerebrovascular Accident Endocrine Medical History: Denies: Hx Diabetes Mellitus Type 1, Hx Diabetes Mellitus Type 2, Hx Hyperthyroidism, Hx Hypothyroidism Renal/ Medical History: Denies: Hx Peritoneal Dialysis Malignancy Medical History: Reports: Hx Colorectal Cancer - Stage IV GI Medical History: Denies: Hx Cirrhosis, Hx Gastroesophageal Reflux Disease, Hx Hepatitis Musculoskeletal Medical History: Denies Hx Arthritis Psychiatric Medical History: Reports: Hx Depression Infectious Medical History: Denies: Hx Hepatitis Past Surgical History: Reports: Hx Section, Hx Kidney (Renal Surgery) - stents, Other - Ureteral stent implants for hydronephrosis secondary to tumor mass. Denies: Hx Hysterectomy - Immunizations Immunizations up to date: No Hx Diphtheria, Pertussis, Tetanus Vaccination: No Review of Systems - Review of Systems Constitutional: denies: Chills, Fever EENT: No symptoms reported Cardiovascular: See HPI, Syncope. denies: Chest pain, Palpitations, Orthopnea Respiratory: No symptoms reported Gastrointestinal: Nausea. denies: Abdomen distended, Abdominal pain, Blood in vomit Genitourinary: No symptoms reported Female Genitourinary: No symptoms reported Musculoskeletal: No symptoms reported Skin: No symptoms reported Hematologic/Lymphatic: No symptoms reported Neurological/Psychological: No symptoms reported Physical Exam - Vital signs Vitals: Temp Resp BP Pulse Ox 99.2 F 19 145/85 H 94 09/11/18 11:12 09/11/18 11:12 09/11/18 11:12 09/11/18 11:12 Notes: Physical exam: GENERAL: She is alert and oriented x3, no acute distress HEAD: Atraumatic, normocephalic. EYES: Pupils equal round and reactive to light, extraocular movements intact, sclera anicteric, conjunctiva are normal. ENT: TMs normal, nares patent, oropharynx clear without exudates. Moist mucous membranes. NECK: Normal range of motion, supple without obvious mass or JVD. LUNGS: Breath sounds clear to auscultation bilaterally and equal. No wheezes rales or rhonchi. HEART: Regular rate and rhythm without murmurs, rubs or gallops. ABDOMEN: Soft, normoactive bowel sounds. No tenderness to palpation. No guarding, no rebound. No masses appreciated. EXTREMITIES: Normal range of motion, no pitting or edema. No clubbing or cyanosis. NEUROLOGICAL: Cranial nerves II through XII grossly intact. Normal speech, moving all extremities. PSYCH: Normal mood, normal affect. SKIN: Warm, Dry, normal turgor, no rashes or lesions noted. Course - Re-evaluation Re-evalutation: 09/11/18 20:24 Patient was observed, given antiemetics, IV fluids. Labs have been stable. Patient feels much better. I did discuss the case with Dr. Skelton. Patient does get Neulasta on after her chemo treatments. She will follow-up with the patient in the office. - Vital Signs Vital signs: Temp Pulse Resp BP Pulse Ox 99.2 F 17 157/87 H 97 09/11/18 11:12 09/11/18 16:01 09/11/18 16:01 09/11/18 16:01 - Laboratory Result Diagrams: 09/11/18 12:20 09/11/18 11:07 Laboratory results interpreted by me: 09/11/18 09/11/18 09/11/18 11:07 12:12 12:20 WBC 23.4 H RDW 14.9 H Seg Neuts % (Manual) 95 H Lymphocytes % (Manual) 2 L Abs Neuts (Manual) 22.2 H BUN 26 H ALT 8 L Urine Protein 100 H Urine Blood LARGE H Urine Urobilinogen 2.0 H Ur Leukocyte Esterase LARGE H Discharge - Discharge Clinical Impression: Orthostatic syncope, Mild dehydration Condition: Stable Disposition: HOME, SELF-CARE Additional Instructions: As we discussed, your lab results look good (baseline for you). Your EKG was normal. I want you to rest, drink plenty of fluids, take medicines as previously prescribed and follow-up with Dr. Skelton is planned. I did speak with Dr. Skelton about today's events and she is expecting you to call her office. Referrals: DAMON SKELTON MD [Primary Care Provider] - Follow up in 3-5 days
[2018-09-11 16:12] VITALS: BP 157/87
== END 2018-09-11 16:16 | disposition home or self-care (01) ==
LOC: ER 11:00
DX: R55 Syncope and collapse (principal); E86.0 Dehydration; Z85.038 Personal history of other malignant neoplasm of large intestine
CPT/HCPCS: 93005; 99284; 96361; 96374; 36415; 87086; 82553; 82550; 85025; 80053; 81001; 84484; 93010; J2405; J7030

== ENCOUNTER → 2018-12-04 | Outpatient (CLI) | payer MEDICARE, MEDICAID ==
--- NOTE | 2018-12-04 10:50 | RADIOLOGY REPORT (SQ) ---
EXAM DESCRIPTION: CT CHEST WITH; CT ABD/PELVIS WITH IV ORAL COMPLETED DATE/TIME: 12/04/2018 10:13 am REASON FOR STUDY: COLORECTAL CA (C19) C19 MALIGNANT NEOPLASM OF RECTOSIGMOID JUNCTION COMPARISON: PET-CT 10/19/2015 CT chest abdomen pelvis 09/30/2016, 10/23/2017, 01/23/2018, 05/04/2018, 08/21/2018 CONTRAST TYPE AND DOSE: contrast/concentration: Isovue 350.00 mg/ml; Total Contrast Delivered: 85.0 ml; Total Saline Delivered: 69.0 ml RENAL FUNCTION: Creatinine 0.9 TECHNIQUE: CT scan of the chest performed using helical scanning technique with dynamic intravenous contrast injection. Images reviewed with lung, soft tissue and bone windows. Reconstructed coronal a nd sagittal MPR images reviewed. All images stored on PACS. CT scan of the abdomen and pelvis performed with intravenous and with oral contrastusing helical scan diamante technique with dynamic intravenous contrast injection. Images reviewed with lung, soft tissue a nd bone windows. Reconstructed coronal and sagittal MPR images reviewed. Delayed images for evaluat ion of the urinary system also acquired and evaluated. All images stored on PACS. All CT scanners at this facility use dose modulation, iterative reconstruction, and/or weight based d osing when appropriate to reduce radiation dose to as low as reasonably achievable (ALARA). [facility]: Dose Right [facility]: CareDose [facility]: Dose Right [facility]: Teradose 4D [facility]: [employer] RADIATION DOSE: CT Rad equipment meets quality standard of care and radiation dose reduction techniq ues were employed. CTDIvol: 4.6 - 6.8 mGy. DLP: 896 mGy-cm. . LIMITATIONS: None. FINDINGS: CHEST: LUNGS AND PLEURA: No opacities, nodules, masses. No pneumothorax. No effusions. HILAR AND MEDIASTINAL STRUCTURES: No identified masses or abnormal nodes. HEART AND VASCULAR STRUCTURES: Chronically stenotic left brachiocephalic vein or globe with left perm anent central line present. There are multiple fluoro venous collaterals over the left upper chest. No pericardial effusion. Mild cardiomegaly. No thoracic aortic dissection. 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 No adenopathy. BONES: No significant finding. OTHER: No other significant finding. ABDOMEN AND PELVIS: LIVER: Liver metastatic lesions are unchanged from 08/21/2018 with index 7 mm nodule in the right post erior liver and 7 mm nodule in the left lobe liver. SPLEEN: Normal size. No focal lesions. PANCREAS: No masses. No significant calcifications. No adjacent inflammation or peripancreatic fluid collections. Pancreatic duct not dilated. GALLBLADDER: Single calcified gallstone. No gallbladder wall thickening or pericholecystic fluid. ADRENAL GLANDS: No significant masses or asymmetry. RIGHT KIDNEY AND URETER: Right-sided double-J ureteral stent in place. No hydronephrosis or hydroure ter. No cysts or masses. No right renal stones LEFT KIDNEY AND URETER: Left double-J ureteral stent in place. No hydronephrosis or hydroureter. No cysts or masses. No left renal stones. AORTA AND VESSELS: No aneurysm. No dissection. Renal arteries, SMA, celiac without stenosis. RETROPERITONEUM: No retroperitoneal adenopathy, hemorrhage or masses. BOWEL AND PERITONEAL CAVITY: Mucinous metastatic lesions are seen in the pelvic cul-de-sac and perito jamal pelvic spaces surrounding the female pelvic organs. Overall mass measures 20 cm transverse by 1 2 cm AP x 20 cm craniocaudad (was 14 x 11 x [address] exam 08/21/2018). Trace ascites in the right subphrenic space, new compared to 08/21/2018. Patient drank oral contrast, no CT evidence of bowel ob struction APPENDIX: Not identified ABDOMINAL WALL: No masses. No hernias. PELVIS: No mass or free fluid. Distal loops of the right and left double-J stent are in the urinary bladder. Normal size uterus and ovaries. Pelvic mucinous tumor recurrence as above. BONES: No significant or acute findings. OTHER: No other significant finding. IMPRESSION: No CT evidence of metastatic disease to the chest Stable colon cancer liver metastatic nodules. Slight increase in size of peritoneal implants pelvis. TECHNICAL DOCUMENTATION: JOB ID: [id number] Quality ID # [id number]: Final reports with documentation of one or more dose reduction techniques (e.g., Au tomated exposure control, adjustment of the mA and/or kV according to patient size, use of iterative reconstruction technique) 2010 [employer]- All Rights Reserved Reading location - IP/workstation name: [email or web address]
== END ==
LOC: RAD 09:17
PROVIDERS: ATTEND Internal Medicine Medical Oncology
DX: C19 Malignant neoplasm of rectosigmoid junction (principal)
CPT/HCPCS: 71260; 74177; 82565

== ENCOUNTER 2018-12-20 15:08 | Emergency (ER) | payer MEDICARE, MEDICAID ==
--- NOTE | 2018-12-20 15:45 | ER Document Report ---
ED Dizziness/Weakness - General Chief Complaint: General Weakness Stated Complaint: CONFUSION/LETHARGIC Time Seen by Provider: 12/20/18 15:45 Primary Care Provider: DAMON SKELTON MD [Primary Care Provider] - Follow up as needed Mode of Arrival: Ambulatory Information source: Patient, Relative Notes: Patient is a 58-year-old female with colon cancer currently undergoing chemotherapy who presents to the ER today for a syncopal episode of 2 minutes that was witnessed by her family member prior to arrival today. Patient states that this is happened before whenever she had a UTI. Patient states that she has had a strong smell to her urine but denies any burning with herniation, low back pain or belly pain. Patient denies any fevers or chills but states "I just do not feel really well." She also admits that she has been coughing recently, denies that that feels like is gotten worse. Family member states that she thinks it has. She denies any shortness of breath or wheezing. She denies chest pain. TRAVEL OUTSIDE OF THE [place] IN LAST 30 DAYS: No - Related Data Allergies/Adverse Reactions: No Known Allergies Allergy (Verified 06/21/17 15:55) Past Medical History - General Information source: Patient - Social History Smoking Status: Never Smoker Chew tobacco use (# tins/day): No Frequency of alcohol use: Rare Drug Abuse: None Family History: Reviewed & Not Pertinent Patient has suicidal ideation: No Patient has homicidal ideation: No - Past Medical History Cardiac Medical History: Reports: Hx Hypertension Denies: Hx Atrial Fibrillation, Hx Congestive Heart Failure, Hx Coronary Artery Disease, Hx DVT, Hx Heart Attack, Hx Hypercholesterolemia, Hx Pulmonary Embolism Pulmonary Medical History: Denies: Hx Asthma, Hx Bronchitis, Hx COPD, Hx Pneumonia, Hx Sleep Apnea Neurological Medical History: Reports: Hx Seizures - Last episode 1 or 2 years ago. Never on antiepileptic.. Denies: Hx Cerebrovascular Accident Endocrine Medical History: Denies: Hx Diabetes Mellitus Type 1, Hx Diabetes Mellitus Type 2, Hx Hyperthyroidism, Hx Hypothyroidism Renal/ Medical History: Denies: Hx Peritoneal Dialysis Malignancy Medical History: Reports: Hx Colorectal Cancer - Stage IV GI Medical History: Denies: Hx Cirrhosis, Hx Gastroesophageal Reflux Disease, Hx Hepatitis Musculoskeletal Medical History: Denies Hx Arthritis Psychiatric Medical History: Reports: Hx Depression Infectious Medical History: Denies: Hx Hepatitis Past Surgical History: Reports: Hx Section, Hx Kidney (Renal Surgery) - stents, Other - Ureteral stent implants for hydronephrosis secondary to tumor mass. Denies: Hx Hysterectomy - Immunizations Immunizations up to date: No Hx Diphtheria, Pertussis, Tetanus Vaccination: No Review of Systems - Review of Systems Constitutional: See HPI EENT: No symptoms reported Cardiovascular: No symptoms reported Respiratory: See HPI Gastrointestinal: No symptoms reported Genitourinary: See HPI Female Genitourinary: No symptoms reported Musculoskeletal: No symptoms reported Skin: No symptoms reported Hematologic/Lymphatic: No symptoms reported Neurological/Psychological: No symptoms reported Physical Exam - Vital signs Vitals: Temp Pulse Resp BP Pulse Ox 98.5 F 99 20 134/78 H 94 12/20/18 15:09 12/20/18 15:09 12/20/18 15:09 12/20/18 15:09 12/20/18 15:09 - Notes Notes: PHYSICAL EXAMINATION: GENERAL: Chronically ill-appearing, however in no acute distress. HEAD: Atraumatic, normocephalic. EYES: Pupils equal round and reactive to light, extraocular movements intact, sclera anicteric, conjunctiva are normal. ENT: Airway patent, ear canals without erythema or foreign body, TMs pearly potter with good bony landmarks, nares patent, oropharynx clear without exudates. Moist mucous membranes. NECK: Normal range of motion, supple without lymphadenopathy LUNGS: CTAB and equal. No wheezes rales or rhonchi. HEART: Regular rate and rhythm without murmurs ABDOMEN: Soft, mild to moderate diffuse tenderness. No guarding, no rebound BACK: no vertebral tenderness, normal ROM GI/: no CVA tenderness EXTREMITIES: Normal range of motion, no pitting edema. No cyanosis. NEUROLOGICAL: Alert and oriented to person place and time, cranial nerves grossly intact. Normal sensory/motor exams. PSYCH: Normal mood, normal affect. SKIN: Warm, Dry, normal turgor, no rashes or lesions noted Course - Re-evaluation Re-evalutation: 12/20/18 19:36 Patient's white blood cell count is 25.5, lactic acid is 3.2, patient has large leukocytes on her urine, patient was given IV fluids times 2 L and antibiotics here through her IV. Patient is currently undergoing chemotherapy for cancer, her abdominal pain she states is normal for her colon cancer and nothing is new as far as abdominal pain goes. I did speak with hospitalist but we feel that admission is not warranted at this time as patient's lab work is actually better than her recent normal lab work has been while undergoing chemotherapy. Patient states that she feels well enough to go home, she is afebrile with stable vital signs here. Patient is going home with family on antibiotics for UTI. - Vital Signs Vital signs: Temp Pulse Resp BP Pulse Ox 98.5 F 99 20 134/78 H 94 12/20/18 15:09 12/20/18 15:09 12/20/18 15:09 12/20/18 15:09 12/20/18 15:09 - Laboratory Result Diagrams: 12/20/18 15:50 12/20/18 15:50 Laboratory results interpreted by me: 12/20/18 12/20/18 12/20/18 15:50 15:50 15:50 WBC 25.5 H RDW 16.3 H Seg Neuts % (Manual) 87 H Lymphocytes % (Manual) 11 L Monocytes % (Manual) 2 L Abs Neuts (Manual) 22.2 H Potassium 3.2 L BUN 21 H Lactic Acid 3.2 H ALT 8 L Alkaline Phosphatase 237 H Urine Protein Urine Blood Urine Urobilinogen Ur Leukocyte Esterase 12/20/18 17:13 WBC RDW Seg Neuts % (Manual) Lymphocytes % (Manual) Monocytes % (Manual) Abs Neuts (Manual) Potassium BUN Lactic Acid ALT Alkaline Phosphatase Urine Protein 100 H Urine Blood MODERATE H Urine Urobilinogen 2.0 H Ur Leukocyte Esterase LARGE H Discharge - Discharge Clinical Impression: Episode of syncope Qualifiers: Syncope type: unspecified Qualified Code(s): R55 - Syncope and collapse UTI (urinary tract infection) Qualifiers: Urinary tract infection type: acute cystitis Hematuria presence: with hematuria Qualified Code(s): N30.01 - Acute cystitis with hematuria Condition: Stable Disposition: HOME, SELF-CARE Additional Instructions: Return immediately for any new or worsening symptoms. Follow up with primary care provider, call tomorrow to make followup appointment. Prescriptions: Cephalexin Monohydrate [Keflex 500 mg Capsule] 500 mg PO TID 7 Days #21 capsule Referrals: DAMON SKELTON MD [Primary Care Provider] - Follow up as needed
[2018-12-20 16:06] LABS: VENOUS BLOOD BASE EXCESS 0.8 mmol/L; VENOUS BLOOD HCO3 28.1 mmol/L (20-32); VENOUS BLOOD PCO2 55.4 mmHg (35-63); VENOUS BLOOD PH 7.32 (7.30-7.42)
[2018-12-20 16:16] LABS: HEMATOCRIT 43.5 % (36.0-47.0); HEMOGLOBIN 14.3 g/dL (12.0-15.5); MEAN CORPUSCULAR HEMOGLOBIN 27.5 pg (27.0-33.4); MEAN CORPUSCULAR HGB CONC 32.8 g/dL (32.0-36.0); MEAN CORPUSCULAR VOLUME 84 fl (80-97); PLATELET COUNT 235 10^3/uL (150-450); RED BLOOD COUNT 5.19 10^6/uL (3.72-5.28); RED CELL DISTRIBUTION WIDTH 16.3 % (11.5-14.0); WHITE BLOOD COUNT 25.5 10^3/uL (4.0-10.5)
[2018-12-20 16:26] LABS: ALANINE AMINOTRANSFERASE 8 U/L (9-52); ALBUMIN 4.1 g/dL (3.5-5.0); ALKALINE PHOSPHATASE 237 U/L (38-126); ANION GAP 11 (5-19); ASPARTATE AMINO TRANSFERASE 26 U/L (14-36); BILIRUBIN,DIRECT 0.1 mg/dL (0.0-0.4); BILIRUBIN,TOTAL 0.6 mg/dL (0.2-1.3); BLOOD UREA NITROGEN 21 mg/dL (7-20); CALCIUM 9.3 mg/dL (8.4-10.2); CARBON DIOXIDE 29 mmol/L (22-30); CHLORIDE 98 mmol/L (98-107); GLUCOSE 92 mg/dL (75-110); POTASSIUM 3.2 mmol/L (3.6-5.0); SODIUM 137.7 mmol/L (137-145); TOTAL PROTEIN 7.4 g/dL (6.3-8.2)
[2018-12-20 16:33] LABS: ABSOLUTE LYMPHOCYTES# (MANUAL) 2.8 10^3/uL (0.5-4.7); ABSOLUTE MONOCYTES # (MANUAL) 0.5 10^3/uL (0.1-1.4); ABSOLUTE NEUTROPHILS# (MANUAL) 22.2 10^3/uL (1.7-8.2); BASOPHILS % (MANUAL) 0 % (0-2); EOSINOPHILS % (MANUAL) 0 % (0-6); LYMPHOCYTES % (MANUAL) 11 % (13-45); MONOCYTES % (MANUAL) 2 % (3-13); SEGMENTED NEUTROPHILS % (MAN) 87 % (42-78); TOTAL CELLS COUNTED 100
[2018-12-20 16:34] LABS: ANISOCYTOSIS 1+; PLATELET CLUMPS PRESENT; PLATELET COMMENT ADEQUATE; POLYCHROMASIA SLIGHT
--- NOTE | 2018-12-20 16:57 | RADIOLOGY REPORT (SQ) ---
EXAM DESCRIPTION: CT HEAD WITHOUT COMPLETED DATE/TIME: 12/20/2018 4:42 pm REASON FOR STUDY: syncope COMPARISON: 08/02/2017. TECHNIQUE: Axial images acquired through the brain without intravenous contrast. Images reviewed wi th bone, brain and subdural windows. Images stored on PACS. All CT scanners at this facility use dose modulation, iterative reconstruction, and/or weight based d osing when appropriate to reduce radiation dose to as low as reasonably achievable (ALARA). [facility]: Dose Right [facility]: CareDose [facility]: Dose Right [facility]: Teradose 4D [facility]: Smart Viewbix RADIATION DOSE: CT Rad equipment meets quality standard of care and radiation dose reduction techniq ues were employed. CTDIvol: 53.2 mGy. DLP: 1070 mGy-cm. mGy. LIMITATIONS: None. FINDINGS: VENTRICLES: Normal size and contour. CEREBRUM: No masses. No hemorrhage. No midline shift. No evidence for acute infarction. Normal gra y/white matter differentiation. No areas of low density in the white matter. CEREBELLUM: No masses. No hemorrhage. No alteration of density. No evidence for acute infarction. EXTRAAXIAL SPACES: No fluid collections. No masses. ORBITS AND GLOBE: No intra- or extraconal masses. Normal contour of globe without masses. CALVARIUM: No fracture. PARANASAL SINUSES: No fluid or mucosal thickening. SOFT TISSUES: No mass or hematoma. OTHER: Basal ganglion calcification unchanged. IMPRESSION: NORMAL BRAIN CT WITHOUT CONTRAST. EVIDENCE OF ACUTE STROKE: NO. COMMENT: Quality ID # [id number]: Final reports with documentation of one or more dose reduction techniques (e.g., Automated exposure control, adjustment of the mA and/or kV according to patient size, use of iterative reconstruction technique) TECHNICAL DOCUMENTATION: JOB ID: [id number] [place]-69 2010 [employer]- All Rights Reserved Reading location - IP/workstation name: [email or web address]
[2018-12-20] MEDS ORDERED: NORMAL SALINE 1000 ML 2,000 ML IV ONE (17:27)
[2018-12-20] MEDS ORDERED: LEVOFLOXACIN 500 MG/D5W RTU 500 MG/100 ML RTUPB IV SCH (17:30)
--- NOTE | 2018-12-20 17:33 | RADIOLOGY REPORT (SQ) ---
EXAM DESCRIPTION: CHEST SINGLE VIEW COMPLETED DATE/TIME: 12/20/2018 4:31 pm REASON FOR STUDY: cough, syncope COMPARISON: 04/05/2017. EXAM PARAMETERS: NUMBER OF VIEWS: One view. TECHNIQUE: Single frontal radiographic view of the chest acquired. RADIATION DOSE: NA LIMITATIONS: None. FINDINGS: LUNGS AND PLEURA: No acute infiltrates or effusions. MEDIASTINUM AND HILAR STRUCTURES: No masses. Contour normal. HEART AND VASCULAR STRUCTURES: Normal heart size. The pulmonary vasculature is normal. BONES: No acute findings. HARDWARE: None in the chest. OTHER: Left trans venous Port-A-Cath with tip proximal to SVC. IMPRESSION: No significant change. TECHNICAL DOCUMENTATION: JOB ID: [id number] [place]-69 2010 [employer]- All Rights Reserved Reading location - IP/workstation name: [email or web address]
[2018-12-20 17:55] LABS: APPEARANCE,URINE CLOUDY; BILIRUBIN,URINE NEGATIVE (NEGATIVE); COLOR,URINE YELLOW; GLUCOSE, URINE NEGATIVE (NEGATIVE); KETONES,URINE NEGATIVE (NEGATIVE); LEUKOCYTE ESTERASE,URINE LARGE (NEGATIVE); NITRITE,URINE NEGATIVE (NEGATIVE); PROTEIN,URINE 100 mg/dL (NEGATIVE); URINE SPECIFIC GRAVITY 1.016
[2018-12-20 18:07] LABS: INTERNATIONAL RATION (INR) 1.14; PROTHROMBIN TIME 15.2 SEC (11.4-15.4)
[2018-12-20 19:56] VITALS: BP 136/78
--- NOTE | 2018-12-21 01:28 | EKG REPORT ---
SEVERITY:- NORMAL ECG - SINUS RHYTHM : Confirmed by: Sophia Jay MD 21-Dec-2018 01:27:05
== END 2018-12-20 20:08 | disposition home or self-care (01) ==
LOC: ER 15:08
DX: N30.01 Acute cystitis with hematuria (principal); R55 Syncope and collapse; R53.1 Weakness; M54.5 Low back pain; R10.9 Unspecified abdominal pain; R41.0 Disorientation, unspecified; R53.83 Other fatigue; I10 Essential (primary) hypertension
CPT/HCPCS: 93005; 99285; 96361; 96365; 36415; 87040; 87086; 82962; 85025; 85610; 80053; 81001; 82803; 83605; 71045; 70450; 93010; J1956; J7030

== ENCOUNTER → 2019-03-05 | Outpatient (CLI) | payer MEDICARE, MEDICAID ==
--- NOTE | 2019-03-05 11:09 | RADIOLOGY REPORT (SQ) ---
EXAM DESCRIPTION: CT CHEST WITH COMPLETED DATE/TIME: 03/05/2019 10:37 am REASON FOR STUDY: COLORECTAL CA (C19) C19 MALIGNANT NEOPLASM OF RECTOSIGMOID JUNCTION COMPARISON: 12/04/2018 TECHNIQUE: CT scan of the chest performed using helical scanning technique with dynamic intravenous contrast injection. Images reviewed with lung, soft tissue and bone windows. Reconstructed coronal and sagittal MPR and MIP images reviewed. All images stored on PACS. All CT scanners at this facility use dose modulation, iterative reconstruction, and/or weight based d osing when appropriate to reduce radiation dose to as low as reasonably achievable (ALARA). [facility]: Dose Right [facility]: CareDose [facility]: Dose Right [facility]: Teradose 4D [facility]: [employer]umas CONTRAST TYPE AND DOSE: 78 mL Isovue 370- low osmolar. RENAL FUNCTION: Creatinine 0.9 RADIATION DOSE: . LIMITATIONS: None. FINDINGS: LUNGS AND PLEURA: No opacities, nodules, masses. No pneumothorax. No effusions. HILAR AND MEDIASTINAL STRUCTURES: No identified masses or abnormal nodes. HEART AND VASCULAR STRUCTURES: No aneurysm or dissection. No central pulmonary emboli. No pericardi al effusion. Numerous paraspinal and chest wall varicosities are identified. These are stable from prior study. There may be left-sided central obstruction. HARDWARE: There is a indwelling left-sided central line. UPPER ABDOMEN: No significant findings. Limited exam. THYROID AND OTHER SOFT TISSUES: No masses. No adenopathy. BONES: No significant finding. OTHER: No other significant finding. IMPRESSION: No evidence of metastatic disease in the chest. TECHNICAL DOCUMENTATION: JOB ID: [id number] Quality ID # [id number]: Final reports with documentation of one or more dose reduction techniques (e.g., Au tomated exposure control, adjustment of the mA and/or kV according to patient size, use of iterative reconstruction technique) 2010 [employer]- All Rights Reserved Reading location - IP/workstation name: [email or web address]
--- NOTE | 2019-03-05 11:28 | RADIOLOGY REPORT (SQ) ---
EXAM DESCRIPTION: CT ABD/PELVIS WITH IV ORAL COMPLETED DATE/TIME: 03/05/2019 10:36 am REASON FOR STUDY: COLORECTAL CA (C19) C19 MALIGNANT NEOPLASM OF RECTOSIGMOID JUNCTION COMPARISON: 12/04/2018 TECHNIQUE: CT scan of the abdomen and pelvis performed using helical scanning technique with dynamic intravenous contrast injection. No oral contrast. Images reviewed with lung, soft tissue, and bone windows. Reconstructed coronal and sagittal MPR images reviewed. Delayed images for evaluation of the urinary system also acquired. All images stored on PACS. All CT scanners at this facility use dose modulation, iterative reconstruction, and/or weight based d osing when appropriate to reduce radiation dose to as low as reasonably achievable (ALARA). [facility]: Dose Right [facility]: CareDose [facility]: Dose Right [facility]: Teradose 4D [facility]: Zep Solar CONTRAST TYPE AND DOSE: contrast/concentration: Isovue 350.00 mg/ml; Total Contrast Delivered: 78.0 ml; Total Saline Delivered: 67.0 ml RENAL FUNCTION: Creatinine 0.9 RADIATION DOSE: CT Rad equipment meets quality standard of care and radiation dose reduction techniq ues were employed. CTDIvol: 4.8 - 7.1 mGy. DLP: 1362 mGy-cm.. LIMITATIONS: None. FINDINGS: LOWER CHEST: See separate report of the CT of the chest. LIVER: There are a couple poorly defined slightly hypodense lesions in the liver that are stable. SPLEEN: Normal size. No focal lesions. PANCREAS: No masses. No significant calcifications. No adjacent inflammation or peripancreatic fluid collections. Pancreatic duct not dilated. GALLBLADDER: A gallstone is present. ADRENAL GLANDS: No significant masses or asymmetry. RIGHT KIDNEY AND URETER: No solid masses. No significant calcifications. Mild hydronephrosis and hydroureter. LEFT KIDNEY AND URETER: No solid masses. No significant calcifications. No hydronephrosis or hydr oureter. AORTA AND VESSELS: No aneurysm. No dissection. Renal arteries, SMA, celiac without stenosis. RETROPERITONEUM: No retroperitoneal adenopathy, hemorrhage or masses. BOWEL AND PERITONEAL CAVITY: No definite bowel masses seen. There is some free fluid. There is a la rge heterogeneous low-density mass in the lower abdomen and pelvis that measures 20.7 x 22 x 12 cm. Slightly larger than on the prior study. There are some calcifications associated with this. APPENDIX: Not identified. PELVIS: There is a small amount of free fluid. Once again there is a large mass in the abdomen and p bridger. This is slightly larger than on the prior study. ABDOMINAL WALL: No masses. No hernias. BONES: No significant or acute finding. OTHER: No other significant finding. IMPRESSION: Stable small hepatic lesions. Large peritoneal recurrence/ metastasis is slightly large r. TECHNICAL DOCUMENTATION: JOB ID: [id number] Quality ID # [id number]: Final reports with documentation of one or more dose reduction techniques (e.g., Au tomated exposure control, adjustment of the mA and/or kV according to patient size, use of iterative reconstruction technique) 2010 [employer]- All Rights Reserved Reading location - IP/workstation name: [email or web address]
== END ==
LOC: RAD 09:38
PROVIDERS: ATTEND Internal Medicine Medical Oncology
DX: C19 Malignant neoplasm of rectosigmoid junction (principal)
CPT/HCPCS: 71260; 74177; 82565

== ENCOUNTER 2019-05-28 01:56 | Emergency (ER) | payer MEDICARE, MEDICAID ==
[2019-05-28] MEDS ORDERED: ONDANSETRON HCL INJ/PF 4 MG/2 ML SDV IV ONE (02:43)
[2019-05-28] MEDS ORDERED: METOCLOPRAMIDE HCL INJ/PF 10 MG/2 ML SDV IV ONE (02:43)
[2019-05-28] MEDS ORDERED: FAMOTIDINE INJ/PF 20 MG/2 ML SDV IV ONE (02:43)
[2019-05-28] MEDS ORDERED: NORMAL SALINE 1000 ML 1,000 ML IV ONE (02:44)
--- NOTE | 2019-05-28 02:50 | ER Document Report ---
ED General - General Chief Complaint: Nausea/Vomiting Stated Complaint: WEAKNESS Time Seen by Provider: 05/28/19 02:17 Primary Care Provider: DAMON SKELTON MD [Primary Care Provider] - Follow up as needed Mode of Arrival: Ambulatory Information source: Patient TRAVEL OUTSIDE OF THE [place] IN LAST 30 DAYS: No - Related Data Allergies/Adverse Reactions: No Known Allergies Allergy (Verified 06/21/17 15:55) Past Medical History - General Information source: Patient - Social History Smoking Status: Current Every Day Smoker Chew tobacco use (# tins/day): No Frequency of alcohol use: None Drug Abuse: None Lives with: Family Family History: Reviewed & Not Pertinent Patient has suicidal ideation: No Patient has homicidal ideation: No - Past Medical History Cardiac Medical History: Reports: Hx Hypertension Denies: Hx Atrial Fibrillation, Hx Congestive Heart Failure, Hx Coronary Artery Disease, Hx DVT, Hx Heart Attack, Hx Hypercholesterolemia, Hx Pulmonary Embolism Pulmonary Medical History: Denies: Hx Asthma, Hx Bronchitis, Hx COPD, Hx Pneumonia, Hx Sleep Apnea Neurological Medical History: Reports: Hx Seizures - Last episode 1 or 2 years ago. Never on antiepileptic.. Denies: Hx Cerebrovascular Accident Endocrine Medical History: Denies: Hx Diabetes Mellitus Type 1, Hx Diabetes Mellitus Type 2, Hx Hyperthyroidism, Hx Hypothyroidism Renal/ Medical History: Denies: Hx Peritoneal Dialysis Malignancy Medical History: Reports: Hx Colorectal Cancer - Stage IV GI Medical History: Denies: Hx Cirrhosis, Hx Gastroesophageal Reflux Disease, Hx Hepatitis Musculoskeletal Medical History: Denies Hx Arthritis Psychiatric Medical History: Reports: Hx Depression Infectious Medical History: Denies: Hx Hepatitis Past Surgical History: Reports: Hx Section, Hx Kidney (Renal Surgery) - stents, Other - Ureteral stent implants for hydronephrosis secondary to tumor mass. Denies: Hx Hysterectomy - Immunizations Immunizations up to date: No Hx Diphtheria, Pertussis, Tetanus Vaccination: No Review of Systems - Review of Systems -: Yes All other systems reviewed and negative Physical Exam - Vital signs Vitals: Temp Pulse Resp BP Pulse Ox 99.2 F 112 H 17 175/107 H 98 05/28/19 02:01 05/28/19 02:01 05/28/19 02:01 05/28/19 02:01 05/28/19 02:01 - Notes Notes: PHYSICAL EXAMINATION: GENERAL: Well-appearing, well-nourished and in moderate distress with vomiting. HEAD: Atraumatic, normocephalic. EYES: Pupils equal round and reactive to light, extraocular movements intact, c onjunctiva are normal. ENT: Nares patent, oropharynx clear without exudates. Somewhat dry mucous m embranes. NECK: Normal range of motion, supple without lymphadenopathy LUNGS: Breath sounds clear to auscultation bilaterally and equal. No wheezes rales or rhonchi. HEART: Regular rate and rhythm without murmurs. Patient has med port site left upper chest that appears clear. ABDOMEN: Diffusely distended through the abdomen, worse through the lower abdomen where the patient states her carcinoma is located right greater than left. Overall, the patient states she does not feel much more tight than normal. There is no obvious fluid wave noted. Female : deferred Musculoskeletal: Normal range of motion, no pitting or edema. No cyanosis. NEUROLOGICAL: Cranial nerves grossly intact. Normal speech, normal gait. Normal sensory, motor exams PSYCH: Normal mood, normal affect. SKIN: Warm, Dry, normal turgor, no rashes or lesions noted. Course - Re-evaluation Re-evalutation: 05/28/19 02:50 Patient was gently rehydrated and was given IV Zofran, Reglan, and Pepcid with relief of her nausea. Mild UTI was noted, and the patient was given IV Rocephin and a urine culture was obtained. CT scan showed mild hydronephrosis worsening, but patient has no back pain and has normal renal function. I informed her of the CT scan finding and she is following up with her regular practitioner for additional chemo. If hydro worsens or she develops back pain or sepsis or acute kidney injury, then she may need stenting performed. Patient was gently rehydrated with IV fluids. Repeat blood pressure came back 163/92. I question a mild gastritis. We will start the patient on omeprazole and supplement her nausea medication regimen of Zofran by adding and Reglan as needed. Patient is already on Xeloda and is having some nausea secondary to chemo. No evidence for or bowel obstruction or mesenteric ischemia or sepsis. 05/28/19 06:20 - Vital Signs Vital signs: Temp Pulse Resp BP Pulse Ox 99.2 F 112 H 18 162/93 H 97 05/28/19 02:01 05/28/19 02:01 05/28/19 05:04 05/28/19 05:03 05/28/19 05:04 - Laboratory Result Diagrams: 05/28/19 02:55 05/28/19 02:55 Laboratory results interpreted by me: 05/28/19 05/28/19 05/28/19 02:55 02:55 05:20 RDW 18.4 H Seg Neutrophils % 83.4 H Lymphocytes % 11.1 L Direct Bilirubin 0.6 H Urine Protein >=500 H Urine Ketones 80 H Urine Blood SMALL H Urine Bilirubin SMALL H Urine Urobilinogen 4.0 H Ur Leukocyte Esterase MODERATE H - EKG Interpretation by Me EKG shows normal: Sinus rhythm Additional EKG results interpreted by me: 05/28/19 03:23 EKG is interpreted by me showed normal sinus rhythm heart rate of 97. There is no gross evidence for acute CO or ischemia noted. There is no significant changes compared to previous EKG reviewed from 12/20/2018. Discharge - Discharge Clinical Impression: Vomiting Qualifiers: Vomiting type: unspecified Vomiting Intractability: non-intractable Nausea presence: with nausea Qualified Code(s): R11.2 - Nausea with vomiting, unspecified Colon cancer Qualifiers: Colon location: unspecified part of colon Qualified Code(s): C18.9 - Malignant neoplasm of colon, unspecified Urinary tract infection Qualifiers: Urinary tract infection type: acute cystitis Hematuria presence: without hematuria Qualified Code(s): N30.00 - Acute cystitis without hematuria Gastritis Qualifiers: Gastritis type: unspecified gastritis Chronicity: acute Gastritis bleeding: without bleeding Qualified Code(s): K29.00 - Acute gastritis without bleeding Hypertension Qualifiers: Hypertension type: essential hypertension Qualified Code(s): I10 - Essential ( primary) hypertension Condition: Stable Disposition: HOME, SELF-CARE Instructions: Antinausea Medication ([facility]), Trimethoprim-Sulfa ([facility]), Urinary Tract Infection ([facility]), Vomiting ([facility]), Gastritis ([facility]), High Blood Pressure ( [facility]) Additional Instructions: Take either Zofran or Reglan as needed for nausea. We will start you on omeprazole daily for gastritis. Prescriptions: Metoclopramide HCl [Reglan 10 mg Tablet] 1 tab PO Q6HP PRN #20 tablet PRN Reason: Amlodipine Besylate [Norvasc 5 mg Tablet] 5 mg PO DAILY #30 tablet Omeprazole 40 mg PO DAILY #30 capsule. Sulfamethoxazole/Trimethoprim [Bactrim Ds Tablet] 1 each PO BID #14 tablet Referrals: DAMON SKELTON MD [Primary Care Provider] - Follow up in 3-5 days
[2019-05-28 03:06] LABS: ABSOLUTE LYMPHOCYTES (AUTO) 0.6 10^3/uL (0.5-4.7); ABSOLUTE MONOCYTES (AUTO) 0.3 10^3/uL (0.1-1.4); ABSOLUTE NEUT (AUTO) 4.7 10^3/uL (1.7-8.2); BASOPHILS % (AUTO) 0.2 % (0-2); EOSINOPHILS % (AUTO) 0.3 % (0-6); HEMATOCRIT 36.5 % (36.0-47.0); HEMOGLOBIN 12.1 g/dL (12.0-15.5); LYMPHOCYTES % (AUTO) 11.1 % (13-45); MEAN CORPUSCULAR HEMOGLOBIN 30.2 pg (27.0-33.4); MEAN CORPUSCULAR HGB CONC 33.1 g/dL (32.0-36.0); MEAN CORPUSCULAR VOLUME 91 fl (80-97); PLATELET COUNT 196 10^3/uL (150-450); RED CELL DISTRIBUTION WIDTH 18.4 % (11.5-14.0); SEGMENTED NEUTROPHILS % (AUTO) 83.4 % (42-78); TOTAL CELLS COUNTED % (AUTO) 100 %; WHITE BLOOD COUNT 5.6 10^3/uL (4.0-10.5)
[2019-05-28 03:31] LABS: ALBUMIN 3.9 g/dL (3.5-5.0); ALKALINE PHOSPHATASE 50 U/L (38-126); ANION GAP 16 (5-19); ASPARTATE AMINO TRANSFERASE 17 U/L (14-36); BILIRUBIN,DIRECT 0.6 mg/dL (0.0-0.4); BILIRUBIN,TOTAL 1.1 mg/dL (0.2-1.3); BLOOD UREA NITROGEN 14 mg/dL (7-20); CALCIUM 9.2 mg/dL (8.4-10.2); CARBON DIOXIDE 28 mmol/L (22-30); CHLORIDE 101 mmol/L (98-107); GLUCOSE 103 mg/dL (75-110); POTASSIUM 3.6 mmol/L (3.6-5.0); TOTAL PROTEIN 7.4 g/dL (6.3-8.2)
--- NOTE | 2019-05-28 05:25 | RADIOLOGY REPORT (SQ) ---
EXAM DESCRIPTION: CT ABDOMEN PELVIS WITH IV CONTRAST There are grossly stable omental metastatic lesions. There are no lytic or blastic bone lesions. There are no lytic or blastic bone lesions. COMPLETED DATE/TME: 05/28/2019 00:00 CLINICAL HISTORY: 58 years, Female, abd pain, vomiting, hx of colon cancer. CREAT 0.75 COMPARISON: 03/05/2019 TECHNIQUE: Axial CT images of the abdomen and pelvis were obtained without the administration of IV contrast. Sagittal and coronal reformats were performed. [facility] [id number] Images stored on PACS. All CT scanners at this facility use dose modulation, iterative reconstruction, and/or weight based dosing when appropriate to reduce radiation dose to as low as reasonably achievable (ALARA). [facility]: Dose Right [facility]: CareDose [facility]: Dose Right [facility]: Teradose 4D [facility]: Smart Responde Ai LIMITATIONS: None. FINDINGS: The lung bases are clear. The liver again contains subcentimeter hypodensities, similar to the prior. Cholelithiasis is noted. The pancreas, spleen, and adrenal glands are unremarkable. There is moderate right-sided hydronephrosis and hydroureter, slightly worse compared to the prior exam. There is mild left-sided hydronephrosis. There is a large amount of ascites. Evaluation for lymphadenopathy is limited secondary to the ascites. The abdominal aorta is normal in caliber. The stomach and small bowel appear unremarkable. The appendix is not uniquely identified. The colon contains a moderate amount of stool. The uterus appears unremarkable. There is a there is a mucinous tumor along the lower pelvis with peripheral and internal calcifications which measures approximately 16.1 x 17.9 x 16.2 cm. IMPRESSION: Grossly stable metastatic disease with large mucinous tumor along the lower pelvis with hepatic and omental metastasis. Bilateral hydronephrosis, worse on the right. Cholelithiasis. TECHNICAL DOCUMENTATION: Quality ID # [id number]: Final reports with documentation of one or more dose reduction techniques (e.g., Automated exposure control, adjustment of the mA and/or kV according to patient size, use of iterative reconstruction technique) copyright 2010 [employer]- All Rights Reserved
[2019-05-28 05:34] LABS: APPEARANCE,URINE SLIGHTLY-CLOUDY; BILIRUBIN,URINE SMALL (NEGATIVE); COLOR,URINE AMBER; GLUCOSE, URINE NEGATIVE (NEGATIVE); KETONES,URINE 80 mg/dL (NEGATIVE); LEUKOCYTE ESTERASE,URINE MODERATE (NEGATIVE); NITRITE,URINE NEGATIVE (NEGATIVE); PROTEIN,URINE >=500 mg/dL (NEGATIVE); URINE SPECIFIC GRAVITY 1.032
[2019-05-28] MEDS ORDERED: CEFTRIAXONE 1 GM/D5W RTU 1 GM/50 ML RTUPB IV ONE (05:39)
[2019-05-28] MEDS ORDERED: AMLODIPINE BESYLATE 5 MG TABLET PO ONE (06:07)
[2019-05-28 07:06] VITALS: BP 154/98
--- NOTE | 2019-05-29 10:30 | EKG REPORT ---
SEVERITY:- BORDERLINE ECG - SINUS RHYTHM BORDERLINE T ABNORMALITIES, ANT-LAT LEADS : Confirmed by: Dilia Moraes 29-May-2019 10:29:58
== END 2019-05-28 07:06 | disposition home or self-care (01) ==
LOC: ER 01:56
DX: N30.00 Acute cystitis without hematuria (principal); K29.00 Acute gastritis without bleeding; C18.9 Malignant neoplasm of colon, unspecified; R11.2 Nausea with vomiting, unspecified; R53.1 Weakness; F17.200 Nicotine dependence, unspecified, uncomplicated; I10 Essential (primary) hypertension
CPT/HCPCS: 93005; 99284; 96361; 96375; 96365; 36415; 83690; 85025; 80053; 81001; 74177; 93010; J2765; A9270; J2405; J7030; S0028; J0696

== ENCOUNTER → 2019-06-01 | Outpatient (CLI) | payer MEDICARE, MEDICAID ==
--- NOTE | 2019-06-01 09:58 | RADIOLOGY REPORT (SQ) ---
EXAM DESCRIPTION: CT CHEST WITH COMPLETED DATE/TIME: 06/01/2019 8:39 am REASON FOR STUDY: ADENOCARCINOMA OF APPENDIX (C18.1) C18.1 MALIGNANT NEOPLASM OF APPENDIX COMPARISON: 03/05/2019 TECHNIQUE: CT scan of the chest performed using helical scanning technique with dynamic intravenous contrast injection. Images reviewed with lung, soft tissue and bone windows. Reconstructed coronal and sagittal MPR and MIP images reviewed. All images stored on PACS. All CT scanners at this facility use dose modulation, iterative reconstruction, and/or weight based d osing when appropriate to reduce radiation dose to as low as reasonably achievable (ALARA). [facility]: Dose Right [facility]: CareDose [facility]: Dose Right [facility]: Teradose 4D [facility]: Lumora CONTRAST TYPE AND DOSE: contrast/concentration: Isovue 350.00 mg/ml; Total Contrast Delivered: 80.0 ml; Total Saline Delivered: 32.7 ml RENAL FUNCTION: BUN 14, creatinine 0.75 RADIATION DOSE: CT Rad equipment meets quality standard of care and radiation dose reduction techniq ues were employed. CTDIvol: 6.2 mGy. DLP: 232 mGy-cm. . LIMITATIONS: None. FINDINGS: LUNGS AND PLEURA: No opacities, nodules, masses. No pneumothorax. No effusions. HILAR AND MEDIASTINAL STRUCTURES: No identified masses or abnormal nodes. The esophagus is distended and fluid filled consistent with reflux. No obvious stricture or mass. Correlation with upper endo scopy may be beneficial for further evaluation. HEART AND VASCULAR STRUCTURES: There is a small pericardial effusion. HARDWARE: Pjwuju-N-Rjib is in place. UPPER ABDOMEN: Large amount of ascites. This is increased since prior study. Probable right-sided h ydronephrosis. THYROID AND OTHER SOFT TISSUES: No masses. No adenopathy. BONES: No significant finding. OTHER: No other significant finding. IMPRESSION: 1. No evidence of metastatic disease in the chest. 2. Fluid filled distended esophagus. This may represent reflux. Distal stricture or mass cannot be excluded although none are identified by CT. Further evaluation with esophagram or upper endoscopy may be beneficial for further evaluation. 3. Increasing abdominal ascites. TECHNICAL DOCUMENTATION: JOB ID: [id number] Quality ID # [id number]: Final reports with documentation of one or more dose reduction techniques (e.g., Au tomated exposure control, adjustment of the mA and/or kV according to patient size, use of iterative reconstruction technique) 2010 [employer]- All Rights Reserved Reading location - IP/workstation name: [email or web address]
== END ==
LOC: RAD 07:58
PROVIDERS: ATTEND Internal Medicine Medical Oncology
DX: C18.1 Malignant neoplasm of appendix (principal)
CPT/HCPCS: 71260

== ENCOUNTER 2019-06-11 07:12 | Day surgery (SDC) | payer MEDICARE, MEDICAID ==
[2019-06-11 08:21] LABS: HEMATOCRIT 28.7 % (36.0-47.0); HEMOGLOBIN 9.8 g/dL (12.0-15.5); MEAN CORPUSCULAR HEMOGLOBIN 31.4 pg (27.0-33.4); MEAN CORPUSCULAR VOLUME 92 fl (80-97); PLATELET COUNT 170 10^3/uL (150-450); RED BLOOD COUNT 3.11 10^6/uL (3.72-5.28); RED CELL DISTRIBUTION WIDTH 21.1 % (11.5-14.0); WHITE BLOOD COUNT 2.1 10^3/uL (4.0-10.5)
[2019-06-11 08:25] LABS: PROTHROMBIN TIME 15.3 SEC (11.4-15.4)
[2019-06-11 08:26] LABS: PARTIAL THROMBOPLASTIN TIME 34.6 SEC (23.5-35.8)
[2019-06-11 08:40] LABS: BLOOD UREA NITROGEN 18 mg/dL (7-20)
--- NOTE | 2019-06-11 11:12 | RADIOLOGY REPORT (SQ) ---
EXAM DESCRIPTION: U/S ABD PARACENTESIS COMPLETED DATE/TIME: 06/11/2019 10:59 am REASON FOR STUDY: malignant neoplasm of sigmoid colon/ neoplasm of uncertain behavior of appe COMPARISON None. LIMITATIONS: None. PROCEDURE: After obtaining informed consent, the patient was brought to the ultrasound suite. The p rocedure was performed with the patient on a gurney. Ultrasound was used to identify a prominent poc ket of ascites in the right lower quadrant. An appropriate access site was selected. The patient wa s prepped and draped in usual sterile fashion. The access site was anesthetized with 10 mL 1% lidoc aide. A Cvja-Y-Ehotylgm needle was advanced into the fluid. After aspiration of fluid the needle, t he catheter was advanced off the needle into the fluid. A total of 1,050 mL of clear, straw-colored fluid was removed. The patient tolerated the procedure well left the department in satisfactory condi tion. Samples were sent to pathology. IMPRESSION: Successful ultrasound-guided paracentesis COMMENT: Patient medication list reviewed: Yes- Quality ID# [id number]:Eligible professional attests to doc umenting in the medical record they obtained, updated, or reviewed the patient's current medications. TECHNICAL DOCUMENTATION: JOB ID: [id number] [employer]- All Rights Reserved Reading location - IP/workstation name: [email or web address]
[2019-06-11 11:47] VITALS: BP 112/80
== END 2019-06-11 11:45 | disposition home or self-care (01) ==
LOC: RAD 07:12
PROVIDERS: ATTEND Internal Medicine Medical Oncology
DX: Z79.01 Long term (current) use of anticoagulants (principal); R18.8 Other ascites; F17.210 Nicotine dependence, cigarettes, uncomplicated
CPT/HCPCS: 36415; 49083; 82565; 84520; 85027; 85610; 85730; 88305; 88341; 88342

== ENCOUNTER 2019-07-09 16:43 | Emergency (ER) | payer MEDICARE, MEDICAID ==
[2019-07-09 17:48] LABS: ABSOLUTE LYMPHOCYTES (AUTO) 0.6 10^3/uL (0.5-4.7); ABSOLUTE MONOCYTES (AUTO) 0.7 10^3/uL (0.1-1.4); ABSOLUTE NEUT (AUTO) 5.4 10^3/uL (1.7-8.2); BASOPHILS % (AUTO) 0.5 % (0-2); EOSINOPHILS % (AUTO) 0.4 % (0-6); HEMOGLOBIN 10.4 g/dL (12.0-15.5); MEAN CORPUSCULAR HEMOGLOBIN 30.1 pg (27.0-33.4); MEAN CORPUSCULAR HGB CONC 33.5 g/dL (32.0-36.0); MEAN CORPUSCULAR VOLUME 90 fl (80-97); MONOCYTES % (AUTO) 10.1 % (3-13); PLATELET COUNT 327 10^3/uL (150-450); RED BLOOD COUNT 3.45 10^6/uL (3.72-5.28); RED CELL DISTRIBUTION WIDTH 17.6 % (11.5-14.0); TOTAL CELLS COUNTED % (AUTO) 100 %; WHITE BLOOD COUNT 6.7 10^3/uL (4.0-10.5)
[2019-07-09 18:06] LABS: ALBUMIN 3.6 g/dL (3.5-5.0); ALKALINE PHOSPHATASE 55 U/L (38-126); ANION GAP 10 (5-19); ASPARTATE AMINO TRANSFERASE 17 U/L (14-36); BILIRUBIN,DIRECT 0.4 mg/dL (0.0-0.4); BILIRUBIN,TOTAL 1.1 mg/dL (0.2-1.3); BLOOD UREA NITROGEN 12 mg/dL (7-20); CALCIUM 9.1 mg/dL (8.4-10.2); CARBON DIOXIDE 31 mmol/L (22-30); CHLORIDE 97 mmol/L (98-107); GLUCOSE 85 mg/dL (75-110); POTASSIUM 3.7 mmol/L (3.6-5.0); TOTAL PROTEIN 7.6 g/dL (6.3-8.2)
--- NOTE | 2019-07-09 18:46 | ER Document Report ---
ED General - General Chief Complaint: Abdominal Pain Stated Complaint: ABDOMINA PAIN Time Seen by Provider: 07/09/19 18:11 Primary Care Provider: CHRISTINA BALDWIN MD [Primary Care Provider] - Follow up as needed TRAVEL OUTSIDE OF THE [place] IN LAST 30 DAYS: No - HPI Notes: Patient with a history of colorectal cancer presents with 1 week of constipation but still passing gas presents with abdominal pain that has been going on for approximately 2 to 3 days. She has been nauseous but no vomiting. Denies any recent fevers chest pain or shortness of breath. Denies any dysuria - Related Data Allergies/Adverse Reactions: No Known Allergies Allergy (Verified 06/21/17 15:55) Past Medical History - Social History Smoking Status: Unknown if Ever Smoked Family History: Reviewed & Not Pertinent Patient has suicidal ideation: No Patient has homicidal ideation: No - Past Medical History Cardiac Medical History: Reports: Hx Hypertension Denies: Hx Atrial Fibrillation, Hx Congestive Heart Failure, Hx Coronary Artery Disease, Hx DVT, Hx Heart Attack, Hx Hypercholesterolemia, Hx Pulmonary Embolism Pulmonary Medical History: Denies: Hx Asthma, Hx Bronchitis, Hx COPD, Hx Pneumonia, Hx Sleep Apnea Neurological Medical History: Reports: Hx Seizures - Last episode 1 or 2 years ago. Never on antiepileptic.. Denies: Hx Cerebrovascular Accident Endocrine Medical History: Denies: Hx Diabetes Mellitus Type 1, Hx Diabetes Mellitus Type 2, Hx Hyperthyroidism, Hx Hypothyroidism Renal/ Medical History: Denies: Hx Peritoneal Dialysis Malignancy Medical History: Reports: Hx Colorectal Cancer - Stage IV GI Medical History: Reports: Hx Gastroesophageal Reflux Disease. Denies: Hx Cirrhosis, Hx Hepatitis Musculoskeletal Medical History: Denies Hx Arthritis Psychiatric Medical History: Reports: Hx Depression Infectious Medical History: Denies: Hx Hepatitis Past Surgical History: Reports: Hx Section, Hx Kidney (Renal Surgery) - stents, Other - Ureteral stent implants for hydronephrosis secondary to tumor mass. Denies: Hx Hysterectomy - Immunizations Immunizations up to date: No Hx Diphtheria, Pertussis, Tetanus Vaccination: No Review of Systems - Review of Systems Constitutional: No symptoms reported EENT: No symptoms reported Cardiovascular: No symptoms reported Respiratory: No symptoms reported Gastrointestinal: See HPI Genitourinary: No symptoms reported Female Genitourinary: No symptoms reported Musculoskeletal: No symptoms reported Skin: No symptoms reported Hematologic/Lymphatic: No symptoms reported Neurological/Psychological: No symptoms reported Physical Exam - Vital signs Vitals: Temp Pulse Resp BP Pulse Ox 99.0 F 114 H 18 125/96 H 95 07/09/19 17:00 07/09/19 17:00 07/09/19 17:00 07/09/19 17:00 07/09/19 17:00 - General General appearance: Appears well, Alert - HEENT Head: Normocephalic, Atraumatic Eyes: Normal Extraocular movements intact: Yes Pupils: PERRL - Respiratory Respiratory status: No respiratory distress Chest status: Nontender Breath sounds: Normal - Cardiovascular Rhythm: Regular Heart sounds: Normal auscultation Murmur: No - Abdominal Inspection: Other - Distended abdomen with hard masses palpated in all quadrants consistent with her colorectal cancer - Extremities General upper extremity: Normal inspection, Normal ROM General lower extremity: Normal inspection, Normal ROM - Neurological Neuro grossly intact: Yes Cognition: Normal Course - Re-evaluation Re-evalutation: 07/09/19 18:[address] Rubio, patient under the care of Dr. Nuñez. Will perform CT abdomen to ensure no obstruction at this time. Nursing staff notify me patient vomited once will provide Zofran 07/09/19 21:21 Patient's labs within normal limits are nonsignificant. She does not show any evidence of bowel obstruction on CT. Will provide her Fleet enema as well as MiraLAX and advised to drink more water as her urine was dark. There is no overt signs of infection she has no dysuria. - Vital Signs Vital signs: Temp Pulse Resp BP Pulse Ox 99.0 F 114 H 20 125/91 H 100 07/09/19 17:00 07/09/19 17:00 07/09/19 22:01 07/09/19 22:01 07/09/19 21:01 - Laboratory Result Diagrams: 07/09/19 17:27 07/09/19 17:27 Laboratory results interpreted by me: 07/09/19 07/09/19 07/09/19 17:27 17:27 19:21 RBC 3.45 L Hgb 10.4 L Hct 31.0 L RDW 17.6 H Lymph % (Auto) 9.0 L Seg Neutrophils % 80.0 H Chloride 97 L Carbon Dioxide 31 H Urine Protein 100 H Urine Ketones 20 H Urine Bilirubin MODERATE H Urine Urobilinogen 4.0 H Ur Leukocyte Esterase SMALL H Discharge - Discharge Clinical Impression: Constipation Qualifiers: Constipation type: unspecified constipation type Qualified Code(s): K59.00 - Constipation, unspecified Condition: Good Disposition: HOME, SELF-CARE Instructions: Constipation ([facility]) Prescriptions: Na Phos,M-B/Na Phos,Di-Ba [Fleet Enema (Adult) 133 ml] 1 applic MO DAILYP PRN #1 enema PRN Reason: Polyethylene Glycol 3350 [Miralax Powder 17 gm/Packet] 1 packet PO DAILY #30 pkg Referrals: CHRISTINA BALDWIN MD [Primary Care Provider] - Follow up as needed
[2019-07-09] MEDS ORDERED: ONDANSETRON HCL INJ/PF 4 MG/2 ML SDV IV ONE (18:48)
[2019-07-09 19:56] LABS: APPEARANCE,URINE SLIGHTLY-CLOUDY; BILIRUBIN,URINE MODERATE (NEGATIVE); GLUCOSE, URINE NEGATIVE (NEGATIVE); KETONES,URINE 20 mg/dL (NEGATIVE); LEUKOCYTE ESTERASE,URINE SMALL (NEGATIVE); NITRITE,URINE NEGATIVE (NEGATIVE); PROTEIN,URINE 100 mg/dL (NEGATIVE); URINE SPECIFIC GRAVITY 1.025
[2019-07-09 20:00] LABS: COLOR,URINE DARK YELLOW
--- NOTE | 2019-07-09 20:50 | RADIOLOGY REPORT (SQ) ---
EXAM DESCRIPTION: CT ABDOMEN PELVIS WITHOUT IV CONTRAST COMPLETED DATE/TME: 07/09/2019 18:23 CLINICAL HISTORY: 58 years, Female, constipation 1 week, hx of colon cancer, COMPARISON: Multiple priors, most recent from 05/28/2019 TECHNIQUE: Noncontrast CT of the abdomen/pelvis was performed. Coronal and sagittal reformations were created. Images stored on PACS. All CT scanners at this facility use dose modulation, iterative reconstruction, and/or weight based dosing when appropriate to reduce radiation dose to as low as reasonably achievable (ALARA). [facility]: Dose Right [facility]: CareDose [facility]: Dose Right [facility]: Teradose 4D [facility]: [employer] LIMITATIONS: None. FINDINGS: Limited evaluation of the lower chest reveals a small left pleural effusion with associated left basilar atelectasis. Calcifications are evident about the coronary vessels. There is a small hiatal hernia. The spleen, pancreas, and both adrenal glands show no suspicious abnormality. A gallstone is noted about the gallbladder lumen. A phrygian cap is incidentally noted. No focal liver lesions are definitively appreciated on this noncontrast CT. Specifically, the previously detailed ill-defined hypodense lesion located within the periphery of the right hepatic lobe is poorly visualized on this noncontrast exam. Moderate bilateral hydronephrosis/mild bilateral hydroureter is again noted. The urinary bladder is largely decompressed. Uterus is poorly visualized. A small amount of free fluid layers dependently within the low pelvis. In addition, there is a large mixed cystic/solid mass containing calcifications located within the pelvis which is difficult to define given its irregular configuration. However, it grossly appears larger when compared to the previous examination dated 05/28/2019, especially about the rightward aspect of the lesion. Grossly, this lesion measured approximately 21.9 x 23.7 cm in size on image 34 of series 601. Peritoneal nodularity also persists, fairly similar to the previous examination. Small and large bowel appear normal in caliber. No evidence of focal wall thickening. No bowel obstruction. Calcifications are evident about the abdominal aorta. No lymphadenopathy. Bone windows show no destructive osseous lesions. IMPRESSION: Persistent large pelvic mass which contains both cystic, solid, and calcified components, slightly increased in size from the previous examination dated 05/28/2019, specifically about its rightward aspect. This finding is most suspicious for an underlying mucinous neoplasm. Superimposed peritoneal spread of malignancy remains similar along with diffuse ascites, likely malignant. Small left pleural effusion with left basilar atelectasis. Unchanged moderate bilateral hydronephrosis with mild bilateral hydroureter. The distal ureters are likely somewhat externally compressed by the large pelvic mass. TECHNICAL DOCUMENTATION: Quality ID # [id number]: Final reports with documentation of one or more dose reduction techniques (e.g., Automated exposure control, adjustment of the mA and/or kV according to patient size, use of iterative reconstruction technique) copyright 2011 [employer]- All Rights Reserved
[2019-07-09 22:10] VITALS: BP 125/91
== END 2019-07-09 22:05 | disposition home or self-care (01) ==
LOC: ER 16:43
DX: R10.9 Unspecified abdominal pain (principal); K59.00 Constipation, unspecified; I10 Essential (primary) hypertension; Z85.038 Personal history of other malignant neoplasm of large intestine
CPT/HCPCS: 99284; 96374; 36415; 83690; 85025; 80053; 81001; 74176; J2405

== ENCOUNTER 2019-08-01 10:43 | Inpatient (IN) | payer MEDICARE, MEDICAID ==
[2019-08-01] MEDS ORDERED: NORMAL SALINE 1000 ML 1,000 ML IV ONE (11:39)
[2019-08-01] MEDS ORDERED: LIDOCAINE 1% INJ-PF (10 MG/ML) 30 ML SDV NEB ONE (11:39)
[2019-08-01] MEDS ORDERED: ONDANSETRON HCL INJ/PF 4 MG/2 ML SDV IV ONE (11:39)
[2019-08-01 12:16] LABS: ABSOLUTE NEUT (AUTO) 7.8 10^3/uL (1.7-8.2); BASOPHILS % (AUTO) 0.2 % (0-2); EOSINOPHILS % (AUTO) 0.3 % (0-6); HEMATOCRIT 29.3 % (36.0-47.0); HEMOGLOBIN 9.6 g/dL (12.0-15.5); LYMPHOCYTES % (AUTO) 9.7 % (13-45); MEAN CORPUSCULAR HEMOGLOBIN 28.6 pg (27.0-33.4); MEAN CORPUSCULAR HGB CONC 32.8 g/dL (32.0-36.0); MEAN CORPUSCULAR VOLUME 87 fl (80-97); MONOCYTES % (AUTO) 10.6 % (3-13); PLATELET COUNT 338 10^3/uL (150-450); RED BLOOD COUNT 3.36 10^6/uL (3.72-5.28); RED CELL DISTRIBUTION WIDTH 17.7 % (11.5-14.0); SEGMENTED NEUTROPHILS % (AUTO) 79.2 % (42-78); TOTAL CELLS COUNTED % (AUTO) 100 %; WHITE BLOOD COUNT 9.8 10^3/uL (4.0-10.5)
[2019-08-01 12:23] LABS: VENOUS BLOOD BASE EXCESS 8.6 mmol/L; VENOUS BLOOD HCO3 34.3 mmol/L (20-32); VENOUS BLOOD PCO2 50.1 mmHg (35-63); VENOUS BLOOD PH 7.45 (7.30-7.42)
[2019-08-01 12:27] LABS: ALBUMIN 3.4 g/dL (3.5-5.0); ALKALINE PHOSPHATASE 46 U/L (38-126); ANION GAP 11 (5-19); ASPARTATE AMINO TRANSFERASE 15 U/L (14-36); BILIRUBIN,DIRECT 0.2 mg/dL (0.0-0.4); BILIRUBIN,TOTAL 0.8 mg/dL (0.2-1.3); BLOOD UREA NITROGEN 34 mg/dL (7-20); CARBON DIOXIDE 33 mmol/L (22-30); CHLORIDE 90 mmol/L (98-107); GLUCOSE 106 mg/dL (75-110); POTASSIUM 3.4 mmol/L (3.6-5.0); TOTAL PROTEIN 7.3 g/dL (6.3-8.2)
[2019-08-01 12:28] LABS: CREATINE KINASE < 20 U/L (30-135)
[2019-08-01] MEDS ORDERED: DEXTROSE 5%-LACTATED RINGERS 1,000 ML IV ONE (13:05)
--- NOTE | 2019-08-01 14:04 | ER Document Report ---
Entered by KG RANGEL SCRIBE 08/01/19 1140 Acting as scribe for:TURNER BAUER MD ED GI/ - General Chief Complaint: Vomiting Stated Complaint: VOMITING/SORE THROAT Time Seen by Provider: 08/01/19 11:28 Primary Care Provider: CHRISTINA BALDWIN MD [Primary Care Provider] - Follow up as needed Mode of Arrival: Ambulatory Information source: Patient Notes: 58-year-old female presents to the emergency department today with complaints of vomiting. Patient has metastatic colorectal cancer with malignant ascites and is being treated by Dr. Nuñez. She states she has been to the office, but has not been officially seen as a patient. She has an appointment to see Dr. Mitchell on . Patient also complains of a hoarse sounding voice with associated discomfort. Patient denies any fevers or diarrhea. She did have an ultrasound-guided paracentesis of just over 1000 mL's of fluid on 06/11/2019 ordered by her previous oncologist. It did show malignant cells consistent with metastatic ascites from colon cancer. TRAVEL OUTSIDE OF THE [place] IN LAST 30 DAYS: No - Related Data Allergies/Adverse Reactions: No Known Allergies Allergy (Verified 06/21/17 15:55) Past Medical History - General Information source: Patient, [facility] - Social History Smoking Status: Current Every Day Smoker Cigarette use (# per day): Yes Chew tobacco use (# tins/day): No Smoking Education Provided: No Frequency of alcohol use: None Drug Abuse: None Lives with: Family Family History: Reviewed & Not Pertinent Patient has suicidal ideation: No Patient has homicidal ideation: No - Past Medical History Cardiac Medical History: Reports: Hx Hypertension Neurological Medical History: Reports: Hx Seizures - Last episode 1 or 2 years ago. Never on antiepileptic. Malignancy Medical History: Reports: Hx Colorectal Cancer - Stage IV GI Medical History: Reports: Hx Gastroesophageal Reflux Disease Psychiatric Medical History: Reports: Hx Depression Past Surgical History: Reports: Hx Section, Hx Kidney (Renal Surgery) - stents, Other - Ureteral stent implants for hydronephrosis secondary to tumor mass - Immunizations Immunizations up to date: No Hx Diphtheria, Pertussis, Tetanus Vaccination: No Review of Systems - Review of Systems Constitutional: denies: Fever EENT: See HPI, Throat pain Cardiovascular: No symptoms reported Respiratory: No symptoms reported Gastrointestinal: See HPI, Nausea, Vomiting. denies: Diarrhea Genitourinary: No symptoms reported Female Genitourinary: No symptoms reported Musculoskeletal: No symptoms reported Skin: No symptoms reported Hematologic/Lymphatic: No symptoms reported Neurological/Psychological: No symptoms reported -: Yes All other systems reviewed and negative Physical Exam - Vital signs Vitals: Temp Pulse Resp BP Pulse Ox 99.6 F 113 H 16 124/87 H 96 08/01/19 10:50 08/01/19 10:50 08/01/19 10:50 08/01/19 10:50 08/01/19 10:50 - Notes Notes: Physical Exam: General: Alert, appears chronically ill. Hoarse sounding voice. HEENT: Normocephalic. Atraumatic. PERRL. Extraocular movements intact. Oropharynx clear. Patient is very hoarse. Neck: Supple. Non-tender. Respiratory: No respiratory distress. Wheezes and rhonchi with forced cough. Cardiovascular: Regular rate and rhythm. Abdominal: Large firm palpable mass in the mid to lower abdomen. Medial portion of the left upper quadrant also has a palpable mass. No distension. Normal Bowel Sounds. Back: No gross abnormalities. Extremities: Moves all four extremities. Upper extremities: Normal inspection. Normal ROM. Lower extremities: Normal inspection. No edema. Normal ROM. Neurological: Normal cognition. AAOx4. Normal speech. Psychological: Normal affect. Normal Mood. Skin: Warm. Dry. Normal color. Course - Vital Signs Vital signs: Temp Pulse Resp BP Pulse Ox 99.6 F 113 H 22 H 114/82 99 08/01/19 10:50 08/01/19 10:50 08/01/19 16:01 08/01/19 16:00 08/01/19 16:00 - Laboratory Result Diagrams: 08/01/19 11:52 08/01/19 11:52 Laboratory results interpreted by me: 08/01/19 08/01/19 08/01/19 11:52 11:52 11:52 RBC 3.36 L Hgb 9.6 L Hct 29.3 L RDW 17.7 H Lymph % (Auto) 9.7 L Seg Neutrophils % 79.2 H VBG pH 7.45 H VBG HCO3 34.3 H Sodium 134.1 L Potassium 3.4 L Chloride 90 L Carbon Dioxide 33 H BUN 34 H Est GFR (MDRD) Non-Af 52 L Creatine Kinase < 20 L Albumin 3.4 L Urine Protein Urine Ketones Urine Bilirubin Urine Urobilinogen 08/01/19 14:00 RBC Hgb Hct RDW Lymph % (Auto) Seg Neutrophils % VBG pH VBG HCO3 Sodium Potassium Chloride Carbon Dioxide BUN Est GFR (MDRD) Non-Af Creatine Kinase Albumin Urine Protein 30 H Urine Ketones TRACE H Urine Bilirubin SMALL H Urine Urobilinogen 4.0 H - Diagnostic Test Radiology reviewed: Image reviewed, Reports reviewed - CT scan of the abdomen and pelvis shows moderate left lower lobe pleural effusion and left lower lobe atelectasis. Paucity of gas within the central lower abdomen. No findings of high-grade bowel obstruction. - EKG Interpretation by Me EKG shows normal: Sinus rhythm, Mascotte, QRS Complexes. abnormal: Intervals, ST-T Waves - Borderline prolonged QT interval borderline anterior lateral T abnormalities Rate: Tachycardia - 100 Rhythm: NSR Voltage: Decreased voltage When compared to previous EKG there are: No significant change - Consults KENDRICK Brooks Time consulted: 14:38 Consulted provider: will come to ER Discharge - Discharge Clinical Impression: Dehydration, Stage IV carcinoma of colon, Malignant ascites, Acute bronchitis with bronchospasm, Laryngitis Nausea and vomiting Qualifiers: Vomiting type: unspecified Vomiting Intractability: non-intractable Qualified Code(s): R11.2 - Nausea with vomiting, unspecified Condition: Fair Disposition: ADMITTED INPATIENT Admitting Provider: Kathy (Hospitalist) Unit Admitted: Medical Floor Referrals: CHRISTINA BALDWIN MD [Primary Care Provider] - Follow up as needed Scribe Attestation: 08/01/19 14:22 I personally performed the services described in the documentation, reviewed and edited the documentation which was dictated to the scribe in my presence, and it accurately records my words and actions. I personally performed the services described in the documentation, reviewed and edited the documentation which was dictated to the scribe in my presence, and it accurately records my words and actions.
[2019-08-01] MEDS ORDERED: METHYLPREDNISOLONE INJ 125 MG/2 ML SDV IV ONE (14:28)
[2019-08-01] MEDS ORDERED: IPRATROPIUM/ALBUTEROL 0.5-2.5 MG/3 ML AMPUL NEB ONE (14:28)
[2019-08-01 14:47] LABS: APPEARANCE,URINE SLIGHTLY-CLOUDY; BILIRUBIN,URINE SMALL (NEGATIVE); COLOR,URINE AMBER; GLUCOSE, URINE NEGATIVE (NEGATIVE); KETONES,URINE TRACE mg/dL (NEGATIVE); LEUKOCYTE ESTERASE,URINE NEGATIVE (NEGATIVE); NITRITE,URINE NEGATIVE (NEGATIVE); PROTEIN,URINE 30 mg/dL (NEGATIVE); URINE SPECIFIC GRAVITY 1.027
--- NOTE | 2019-08-01 16:25 | RADIOLOGY REPORT (SQ) ---
EXAM DESCRIPTION: ACUTE ABDOMEN SERIES COMPLETED DATE/TIME: 08/01/2019 4:05 pm REASON FOR STUDY: N V,Stage IV colon Ca COMPARISON: CT chest 06/01/2019. CT abdomen pelvis 07/09/2019. NUMBER OF VIEWS: Three views. TECHNIQUE: Frontal chest, supine abdomen and upright/decubitus abdomen radiographic images acquired. LIMITATIONS: None. FINDINGS: CHEST: Moderate left lower lobe pleural effusion and left lower lobe atelectasis. FREE AIR: None. No abnormal gas collections. BOWEL GAS PATTERN: No abnormally dilated loops of bowel or air-fluid levels. Paucity of bowel gas wi thin the central and lower abdomen. CALCIFICATIONS: Pelvic calcifications corresponding to known mass. HARDWARE: Unchanged positioning of the left chest wall port catheter with the tip projecting over the SVC/left brachiocephalic vein junction. SOFT TISSUES: No gross mass or suggestion of organomegaly. BONES: No acute fracture. No worrisome bone lesions. OTHER: No other significant finding. IMPRESSION: Lines and tubes as above. Paucity of bowel gas within the central lower abdomen. No findings of high-grade bowel obstruction. Moderate left pleural effusion and left lower lobe atelectasis. Pelvic calcifications corresponding to known mass. TECHNICAL DOCUMENTATION: JOB ID: [id number] [employer] All Rights Reserved Reading location - IP/workstation name: [email or web address]
[2019-08-01] MEDS ORDERED: ZOLPIDEM TARTRATE 5 MG TABLET PO PRN (17:14)
[2019-08-01] MEDS ORDERED: OXYCODONE-ACETAMINOPHEN 5-325 MG TABLET PO PRN (17:14)
[2019-08-01] MEDS ORDERED: ACETAMINOPHEN 325 MG TABLET PO PRN (17:14)
[2019-08-01] MEDS ORDERED: HYDROMORPHONE HCL INJ/PF 2 MG/ML AMPULE IV PRN (17:28)
--- NOTE | 2019-08-01 17:50 | PDOC H&P ---
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 Patient states that for the last 2 to 3 days she has been vomiting up food but she can swallow and hold down liquids. She also comes in for abdominal pain as well. Patient also states for the last 2 to 3 days she has had laryngitis and a sore throat. She denies fever and chills. CT scan done in the emergency room shows metastatic colon cancer however no bowel obstruction. She is scheduled to see Dr. Mitchell for the first time on August 05. Patient has been cared for by another oncologist. Past Medical History Cardiac Medical History: Reports: Hypertension Denies: Atrial Fibrillation, Congestive Heart Failure, Coronary Artery Disease, DVT, Myocardial Infarction, Hyperlipidema, Pulmonary Embolism Pulmonary Medical History: Denies: Asthma, Bronchitis, Chronic Obstructive Pulmonary Disease (COPD), Pneumonia, Sleep Apnea Neurological Medical History: Reports: Seizures - Last episode 1 or 2 years ago. Never on antiepileptic. Endocrine Medical History: Denies: Diabetes Mellitus Type 1, Diabetes Mellitus Type 2, Hyperthyroidism, Hypothyroidism Malignancy Medical History: Reports: Colorectal Cancer - Stage IV GI Medical History: Reports: Gastroesophageal Reflux Disease Denies: Cirrhosis, Hepatitis Musculoskeltal Medical History: Denies: Arthritis Psychiatric Medical History: Reports: Depression Hematology: Denies: Anemia Past Surgical History Past Surgical History: Reports: Section, Other - Ureteral stent implants for hydronephrosis secondary to tumor mass Denies: Hysterectomy Social History Lives with: Family Smoking Status: Current Every Day Smoker Frequency of Alcohol Use: Social Hx Recreational Drug Use: No Drugs: None Hx Prescription Drug Abuse: No - Advance Directive Resuscitation Status: Full Code Family History Family History: Reviewed & Not Pertinent Parental Family History Reviewed: No Children Family History Reviewed: No Sibling(s) Family History Reviewed.: No Medication/Allergy Home Medications: Amlodipine Besylate [Norvasc 5 mg Tablet] 5 mg PO DAILY@1200 #30 tablet 02/16/18 Olanzapine [Zyprexa 2.5 mg Tablet] 2.5 mg PO QHS #30 tablet 02/16/18 Amlodipine Besylate [Norvasc 5 mg Tablet] 5 mg PO DAILY #30 tablet 05/28/19 Metoclopramide HCl [Reglan 10 mg Tablet] 1 tab PO Q6HP PRN #20 tablet 05/28/19 Omeprazole 40 mg PO DAILY #30 capsule. 05/28/19 Maryanne SinhaMGrantB/Na Phoneel,Di-Ba [Fleet Enema (Adult) 133 ml] 1 applic DC DAILYP PRN #1 enema 07/09/19 Polyethylene Glycol 3350 [Miralax Powder 17 gm/Packet] 1 packet PO DAILY #30 pkg 07/09/19 Allergies/Adverse Reactions: No Known Allergies Allergy (Verified 06/21/17 15:55) Review of Systems Constitutional: PRESENT: fatigue, weakness, other Nose, Mouth, and Throat: PRESENT: sore throat, other - Laryngitis Cardiovascular: ABSENT: chest pain, dyspnea on exertion, edema, orthropnea, palpitations Respiratory: ABSENT: cough, hemoptysis Gastrointestinal: PRESENT: abdominal pain, bloating, constipation, nausea, vomiting Neurological: ABSENT: abnormal gait, abnormal speech, confusion, dizziness, focal weakness, syncope Psychiatric: ABSENT: anxiety, depression, homidical ideation, suicidal ideation Physical Exam Vital Signs: Temp Pulse Resp BP Pulse Ox 99.6 F 113 H 22 H 114/82 99 08/01/19 10:50 08/01/19 10:50 08/01/19 16:01 08/01/19 16:00 08/01/19 16:00 Intake & Output 07/31/19 08/01/19 08/02/19 06:59 06:59 06:59 Intake Total 1999 Balance 1999 Weight 58.7 kg General appearance: PRESENT: mild distress Mouth exam: PRESENT: moist, tongue midline Respiratory exam: PRESENT: clear to auscultation bettie. ABSENT: rales, rhonchi, wheezes Cardiovascular exam: PRESENT: RRR. ABSENT: diastolic murmur, rubs, systolic murmur GI/Abdominal exam: PRESENT: diminished bowel sounds, distended, firm, rigid Neurological exam: PRESENT: alert, awake, oriented to person, oriented to place, oriented to time, oriented to situation, CN II-XII grossly intact. ABSENT: motor sensory deficit Psychiatric exam: PRESENT: appropriate affect, normal mood. ABSENT: homicidal ideation, suicidal ideation Results Laboratory Results: 08/01/19 11:52 08/01/19 11:52 08/01/19 08/01/19 08/01/19 11:52 11:52 11:52 WBC 9.8 RBC 3.36 L Hgb 9.6 L Hct 29.3 L MCV 87 MCH 28.6 MCHC 32.8 RDW 17.7 H Plt Count 338 Seg Neutrophils % 79.2 H VBG pH VBG pCO2 VBG HCO3 VBG Base Excess Sodium 134.1 L Potassium 3.4 L Chloride 90 L Carbon Dioxide 33 H Anion Gap 11 BUN 34 H Creatinine 1.07 Est GFR ( Amer) > 60 Glucose 106 Lactic Acid 2.0 Calcium 9.0 Magnesium 1.7 Total Bilirubin 0.8 AST 15 Alkaline Phosphatase 46 Total Protein 7.3 Albumin 3.4 L Urine Color Urine Appearance Urine pH Ur Specific [place] Urine Protein Urine Glucose (UA) Urine Ketones Urine Blood Urine Nitrite Ur Leukocyte Esterase Urine WBC (Auto) Urine RBC (Auto) 08/01/19 08/01/19 11:52 14:00 WBC RBC Hgb Hct MCV MCH MCHC RDW Plt Count Seg Neutrophils % VBG pH 7.45 H VBG pCO2 50.1 VBG HCO3 34.3 H VBG Base Excess 8.6 Sodium Potassium Chloride Carbon Dioxide Anion Gap BUN Creatinine Est GFR ( Amer) Glucose Lactic Acid Calcium Magnesium Total Bilirubin AST Alkaline Phosphatase Total Protein Albumin Urine Color [place]IL[place] Urine Appearance SLIGHTLY-CLOUDY Urine pH 5.0 Ur Specific [place] 1.027 Urine Protein 30 H Urine Glucose (UA) NEGATIVE Urine Ketones TRACE H Urine Blood NEGATIVE Urine Nitrite NEGATIVE Ur Leukocyte Esterase NEGATIVE Urine WBC (Auto) 3 Urine RBC (Auto) 3 08/01/19 08/01/19 11:52 11:52 Creatine Kinase < 20 L Troponin I < 0.012 Impressions: Acute Abdomen Series 08/01/19 14:32 IMPRESSION: Lines and tubes as above. Paucity of bowel gas within the central lower abdomen. No findings of high- grade bowel obstruction. Moderate left pleural effusion and left lower lobe atelectasis. Pelvic calcifications corresponding to known mass. Assessment and Plan - Diagnosis (1) Dehydration Is this a current diagnosis for this admission?: Yes (2) Laryngitis Is this a current diagnosis for this admission?: Yes (3) Malignant ascites Is this a current diagnosis for this admission?: Yes (4) Nausea and vomiting Qualifiers: Vomiting type: unspecified Vomiting Intractability: non-intractable Qualified Code(s): R11.2 - Nausea with vomiting, unspecified Is this a current diagnosis for this admission?: Yes (5) Stage IV carcinoma of colon Is this a current diagnosis for this admission?: Yes (6) Cough Is this a current diagnosis for this admission?: Yes (7) History of colon cancer, stage IV Is this a current diagnosis for this admission?: Yes - Plan Summary Summary: 08/01/2019 Patient will be admitted to the hospital for gentle hydration, be put on a full liquid diet, and IV medications pain and vomiting. She will be seen by the oncologist tomorrow. I have ordered a rapid strep test in the ER. She has no evidence of thrush. Patient just several weeks ago had a paracentesis with 1000 cc of fluid removed. This may need to be done again. Patient will be admitted for vomiting and abdominal pain with oncology consult in the morning. - Time Time Spent with patient: 35 or more minutes
[2019-08-01] MEDS: PROMETHAZINE HCL INJ 25 MG/1 ML VIAL IV PRN (18:05)
[2019-08-01] MEDS: NORMAL SALINE 1000 ML 1,000 ML IV PRN (18:16)
[2019-08-01] MEDS: DOCUSATE SODIUM 100 MG CAPSULE PO SCH (18:23)
[2019-08-01] MEDS: OLANZAPINE 2.5 MG TABLET PO SCH (22:08)
[2019-08-01] MEDS: FAMOTIDINE INJ/PF 20 MG/2 ML SDV IV SCH (22:08)
--- NOTE | 2019-08-02 02:19 | EKG REPORT ---
SEVERITY:- ABNORMAL ECG - SINUS TACHYCARDIA LOW VOLTAGE IN FRONTAL LEADS BORDERLINE T ABNORMALITIES, ANT-LAT LEADS BORDERLINE PROLONGED QT INTERVAL : Confirmed by: Dilia Moraes 02-Aug-2019 02:18:24
[2019-08-02 04:18] LABS: ABSOLUTE LYMPHOCYTES (AUTO) 0.6 10^3/uL (0.5-4.7); ABSOLUTE MONOCYTES (AUTO) 0.5 10^3/uL (0.1-1.4); HEMATOCRIT 26.6 % (36.0-47.0); HEMOGLOBIN 8.8 g/dL (12.0-15.5); LYMPHOCYTES % (AUTO) 6.4 % (13-45); MEAN CORPUSCULAR HEMOGLOBIN 28.7 pg (27.0-33.4); MEAN CORPUSCULAR VOLUME 87 fl (80-97); MONOCYTES % (AUTO) 4.6 % (3-13); PLATELET COUNT 306 10^3/uL (150-450); RED BLOOD COUNT 3.06 10^6/uL (3.72-5.28); RED CELL DISTRIBUTION WIDTH 17.9 % (11.5-14.0); TOTAL CELLS COUNTED % (AUTO) 100 %; WHITE BLOOD COUNT 10.1 10^3/uL (4.0-10.5)
[2019-08-02 04:38] LABS: ANION GAP 11 (5-19); BLOOD UREA NITROGEN 32 mg/dL (7-20); CALCIUM 8.5 mg/dL (8.4-10.2); CARBON DIOXIDE 30 mmol/L (22-30); CHLORIDE 96 mmol/L (98-107); GLUCOSE 131 mg/dL (75-110); POTASSIUM 3.6 mmol/L (3.6-5.0)
[2019-08-02] MEDS: PROMETHAZINE HCL INJ 25 MG/1 ML VIAL IV PRN (06:08)
[2019-08-02] MEDS: NORMAL SALINE 1000 ML 1,000 ML IV PRN ×2 (06:08→17:06)
--- NOTE | 2019-08-02 08:40 | PDOC CONSULTATION ---
Consultation Consult Date: 08/02/19 Attending physician:: FRANCY CAMACHO Provider Consulted: CHEYANNE VITAL Consult reason:: Nausea vomiting, stage IV colon cancer History of Present Illness Admission Date/PCP: 08/01/19 16:52 CHRISTINA BALDWIN MD Patient complains of: Persistent nausea and vomiting, sore throat, hoarseness, stage IV colon cancer History of Present Illness: ISIS GATES is a 58 year old female with known history of stage IV colon can cer, she has recently transferred her care to us from Dr. 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 She is doing a little bit better today morning, and is trying to take down some full liquids. Most recently she has been on Xeloda. Past Medical History Cardiac Medical History: Reports: Hypertension Denies: Atrial Fibrillation, Congestive Heart Failure, Coronary Artery Disease, DVT, Myocardial Infarction, Hyperlipidema, Pulmonary Embolism Pulmonary Medical History: Denies: Asthma, Bronchitis, Chronic Obstructive Pulmonary Disease (COPD), Pneumonia, Sleep Apnea Neurological Medical History: Reports: Seizures - Last episode 1 or 2 years ago. Never on antiepileptic. Endocrine Medical History: Denies: Diabetes Mellitus Type 1, Diabetes Mellitus Type 2, Hyperthyroidism, Hypothyroidism Malignancy Medical History: Reports: Colorectal Cancer - Stage IV GI Medical History: Reports: Gastroesophageal Reflux Disease Denies: Cirrhosis, Hepatitis Musculoskeltal Medical History: Denies: Arthritis Psychiatric Medical History: Reports: Depression Hematology: Denies: Anemia Past Surgical History Past Surgical History: Reports: Section, Other - Ureteral stent implants for hydronephrosis secondary to tumor mass Denies: Hysterectomy Social History Information Source: Patient Lives with: Family Smoking Status: Current Every Day Smoker Frequency of Alcohol Use: Social Hx Recreational Drug Use: No Drugs: None Hx Prescription Drug Abuse: No - Advance Directive Resuscitation Status: Full Code Family History Family History: Reviewed & Not Pertinent Parental Family History Reviewed: Yes Children Family History Reviewed: Yes Sibling(s) Family History Reviewed.: Yes Medication/Allergy Home Medications: Amlodipine Besylate [Norvasc 5 mg Tablet] 5 mg PO DAILY #30 tablet 05/28/19 Omeprazole 40 mg PO DAILY #30 capsule. 05/28/19 Polyethylene Glycol 3350 [Miralax Powder 17 gm/Packet] 1 packet PO DAILY #30 pkg 07/09/19 Losartan/Hydrochlorothiazide [Losartan-Hctz 100-25 mg Tab] 1 each PO DAILY 08/02/19 Allergies/Adverse Reactions: No Known Allergies Allergy (Verified 06/21/17 15:55) Review of Systems Constitutional: ABSENT: chills, fever(s), headache(s), weight gain, weight loss Eyes: ABSENT: visual disturbances Ears: ABSENT: hearing changes Cardiovascular: ABSENT: chest pain, dyspnea on exertion, edema, orthropnea, palpitations Respiratory: ABSENT: cough, hemoptysis Gastrointestinal: ABSENT: abdominal pain, constipation, diarrhea, hematemesis, hematochezia, nausea, vomiting Genitourinary: ABSENT: dysuria, hematuria Musculoskeletal: ABSENT: joint swelling Integumentary: ABSENT: rash, wounds Neurological: ABSENT: abnormal gait, abnormal speech, confusion, dizziness, focal weakness, syncope Psychiatric: ABSENT: anxiety, depression, homidical ideation, suicidal ideation Endocrine: ABSENT: cold intolerance, heat intolerance, polydipsia, polyuria Hematologic/Lymphatic: ABSENT: easy bleeding, easy bruising Physical Exam Vital Signs: Temp Pulse Resp BP Pulse Ox 98.5 F 93 17 121/81 99 08/02/19 08:04 08/02/19 08:04 08/02/19 08:04 08/02/19 08:04 08/02/19 08:04 Intake & Output 08/01/19 08/02/19 08/03/19 06:59 06:59 06:59 Intake Total 3200 Balance 3200 Weight 61.9 kg General appearance: PRESENT: no acute distress, well-developed, well-nourished Head exam: PRESENT: atraumatic, normocephalic Eye exam: PRESENT: conjunctiva pink, EOMI, PERRLA. ABSENT: scleral icterus Ear exam: PRESENT: normal external ear exam Mouth exam: PRESENT: moist, tongue midline Neck exam: ABSENT: carotid bruit, JVD, lymphadenopathy, thyromegaly Respiratory exam: PRESENT: clear to auscultation bettie. ABSENT: rales, rhonchi, wheezes Cardiovascular exam: PRESENT: RRR. ABSENT: diastolic murmur, rubs, systolic mur mur Pulses: PRESENT: normal dorsalis pedis pul Vascular exam: PRESENT: normal capillary refill GI/Abdominal exam: PRESENT: normal bowel sounds, soft. ABSENT: distended, guarding, mass, organolmegaly, rebound, tenderness Rectal exam: PRESENT: deferred Extremities exam: PRESENT: full ROM. ABSENT: calf tenderness, clubbing, pedal edema Neurological exam: PRESENT: alert, awake, oriented to person, oriented to place, oriented to time, oriented to situation, CN II-XII grossly intact. ABSENT: motor sensory deficit Psychiatric exam: PRESENT: appropriate affect, normal mood. ABSENT: homicidal ideation, suicidal ideation Skin exam: PRESENT: dry, intact, warm. ABSENT: cyanosis, rash Results Laboratory Results: 08/02/19 03:53 08/02/19 03:53 08/01/19 08/01/19 08/01/19 11:52 11:52 11:52 WBC 9.8 RBC 3.36 L Hgb 9.6 L Hct 29.3 L MCV 87 MCH 28.6 MCHC 32.8 RDW 17.7 H Plt Count 338 Seg Neutrophils % 79.2 H VBG pH VBG pCO2 VBG HCO3 VBG Base Excess Sodium 134.1 L Potassium 3.4 L Chloride 90 L Carbon Dioxide 33 H Anion Gap 11 BUN 34 H Creatinine 1.07 Est GFR ( Amer) > 60 Glucose 106 Lactic Acid 2.0 Calcium 9.0 Magnesium 1.7 Total Bilirubin 0.8 AST 15 Alkaline Phosphatase 46 Total Protein 7.3 Albumin 3.4 L Urine Color Urine Appearance Urine pH Ur Specific [place] Urine Protein Urine Glucose (UA) Urine Ketones Urine Blood Urine Nitrite Ur Leukocyte Esterase Urine WBC (Auto) Urine RBC (Auto) 08/01/19 08/01/19 08/02/19 11:52 14:00 03:53 WBC 10.1 RBC 3.06 L Hgb 8.8 L Hct 26.6 L MCV 87 MCH 28.7 MCHC 33.0 RDW 17.9 H Plt Count 306 Seg Neutrophils % 89.0 H VBG pH 7.45 H VBG pCO2 50.1 VBG HCO3 34.3 H VBG Base Excess 8.6 Sodium Potassium Chloride Carbon Dioxide Anion Gap BUN Creatinine Est GFR ( Amer) Glucose Lactic Acid Calcium Magnesium Total Bilirubin AST Alkaline Phosphatase Total Protein Albumin Urine Color LIL[place]NA Urine Appearance SLIGHTLY-CLOUDY Urine pH 5.0 Ur Specific [place] 1.027 Urine Protein 30 H Urine Glucose (UA) NEGATIVE Urine Ketones TRACE H Urine Blood NEGATIVE Urine Nitrite NEGATIVE Ur Leukocyte Esterase NEGATIVE Urine WBC (Auto) 3 Urine RBC (Auto) 3 08/02/19 03:53 WBC RBC Hgb Hct MCV MCH MCHC RDW Plt Count Seg Neutrophils % VBG pH VBG pCO2 VBG HCO3 VBG Base Excess Sodium 136.9 L Potassium 3.6 Chloride 96 L Carbon Dioxide 30 Anion Gap 11 BUN 32 H Creatinine 0.84 Est GFR ( Amer) > 60 Glucose 131 H Lactic Acid Calcium 8.5 Magnesium Total Bilirubin AST Alkaline Phosphatase Total Protein Albumin Urine Color Urine Appearance Urine pH Ur Specific [place] Urine Protein Urine Glucose (UA) Urine Ketones Urine Blood Urine Nitrite Ur Leukocyte Esterase Urine WBC (Auto) Urine RBC (Auto) 08/01/19 08/01/19 11:52 11:52 Creatine Kinase < 20 L Troponin I < 0.012 Impressions: Acute Abdomen Series 08/01/19 14:32 IMPRESSION: Lines and tubes as above. Paucity of bowel gas within the central lower abdomen. No findings of high- grade bowel obstruction. Moderate left pleural effusion and left lower lobe atelectasis. Pelvic calcifications corresponding to known mass. Status: Image reviewed by me Assessment & Plan - Diagnosis (1) Intractable vomiting with nausea Is this a current diagnosis for this admission?: Yes Plan: Secondary to the peritoneal carcinomatosis in part, continue with aggressive hydration and antiemetics (2) Malignant ascites Is this a current diagnosis for this admission?: Yes Plan: Secondary to the carcinomatosis, she has required paracentesis in the past. (3) Stage IV carcinoma of colon Is this a current diagnosis for this admission?: Yes Plan: She has been on oral Xeloda at home, Dr. Mitchell will be back tomorrow to talk to her about next steps of care. (4) Laryngitis Is this a current diagnosis for this admission?: Yes Plan: May be a viral laryngitis but may also be from irritation from the previous vomiting that she was having continue per hospitalist team (5) Dehydration Is this a current diagnosis for this admission?: Yes Plan: Secondary to the persistent nausea and vomiting, continue with IV hydration for another 24 hours - Time Time Spent: Greater than 70 Minutes - Inpatient Certification Based on my medical assessment, after consideration of the patient's comorbidities, presenting symptoms, or acuity I expect that the services needed warrant INPATIENT care.: Yes I certify that my determination is in accordance with my understanding of Medicare's requirements for reasonable and necessary INPATIENT services [42 CFR 412.3e].: Yes Medical Necessity: Need For IV Fluids, Risk of Complication if Not Cared For in Hospital
[2019-08-02] MEDS: FAMOTIDINE INJ/PF 20 MG/2 ML SDV IV SCH ×2 (09:04→22:29)
[2019-08-02] MEDS: AMLODIPINE BESYLATE 5 MG TABLET PO SCH (09:04)
[2019-08-02] MEDS: ENOXAPARIN SODIUM INJ 40 MG/0.4 ML DISP.SYRIN SUBCUT SCH (09:04)
[2019-08-02] MEDS: DOCUSATE SODIUM 100 MG CAPSULE PO SCH ×2 (09:04→17:06)
--- NOTE | 2019-08-02 13:34 | PDOC PROGRESS REPORT ---
Subjective Progress Note for:: 08/02/19 Subjective:: Patient was admitted to the hospital yesterday through the emergency room for vomiting food. She was able to hold down liquids and did not vomit but any solid food she vomited. She has a history of stage IV colon cancer. She also has peritoneal carcinomatosis with recurrent malignant ascites well as a large pelvic mass. Patient's primary complaint is vomiting. Reason For Visit: ABDOMINAL PAIN,ADENOCARCINOMA OF APPENDIX,VOMITING Physical Exam Vital Signs: Temp Pulse Resp BP Pulse Ox 98.5 F 93 17 121/81 99 08/02/19 08:04 08/02/19 08:04 08/02/19 08:04 08/02/19 08:04 08/02/19 08:04 Intake & Output 08/01/19 08/02/19 08/03/19 06:59 06:59 06:59 Intake Total 3200 390 Balance 3200 390 Weight 61.9 kg General appearance: PRESENT: mild distress Respiratory exam: PRESENT: clear to auscultation bettie. ABSENT: rales, rhonchi, wheezes Cardiovascular exam: PRESENT: RRR. ABSENT: diastolic murmur, rubs, systolic murmur GI/Abdominal exam: PRESENT: ascites, distended, firm, rigid, tenderness Neurological exam: PRESENT: alert, awake, oriented to person, oriented to place, oriented to time, oriented to situation, CN II-XII grossly intact. ABSENT: motor sensory deficit Psychiatric exam: PRESENT: appropriate affect, normal mood. ABSENT: homicidal ideation, suicidal ideation Results Laboratory Results: 08/02/19 03:53 08/02/19 03:53 08/01/19 08/02/19 08/02/19 14:00 03:53 03:53 WBC 10.1 RBC 3.06 L Hgb 8.8 L Hct 26.6 L MCV 87 MCH 28.7 MCHC 33.0 RDW 17.9 H Plt Count 306 Seg Neutrophils % 89.0 H Sodium 136.9 L Potassium 3.6 Chloride 96 L Carbon Dioxide 30 Anion Gap 11 BUN 32 H Creatinine 0.84 Est GFR ( Amer) > 60 Glucose 131 H Calcium 8.5 Urine Color LILIANA Urine Appearance SLIGHTLY-CLOUDY Urine pH 5.0 Ur Specific [place] 1.027 Urine Protein 30 H Urine Glucose (UA) NEGATIVE Urine Ketones TRACE H Urine Blood NEGATIVE Urine Nitrite NEGATIVE Ur Leukocyte Esterase NEGATIVE Urine WBC (Auto) 3 Urine RBC (Auto) 3 08/01/19 08/01/19 11:52 11:52 Creatine Kinase < 20 L Troponin I < 0.012 Impressions: Acute Abdomen Series 08/01/19 14:32 IMPRESSION: Lines and tubes as above. Paucity of bowel gas within the central lower abdomen. No findings of high- grade bowel obstruction. Moderate left pleural effusion and left lower lobe atelectasis. Pelvic calcifications corresponding to known mass. Assessment and Plan - Diagnosis (1) Dehydration Is this a current diagnosis for this admission?: Yes (2) Laryngitis Is this a current diagnosis for this admission?: Yes (3) Malignant ascites Is this a current diagnosis for this admission?: Yes (4) Nausea and vomiting Qualifiers: Vomiting type: unspecified Vomiting Intractability: non-intractable Qualified Code(s): R11.2 - Nausea with vomiting, unspecified Is this a current diagnosis for this admission?: Yes (5) Stage IV carcinoma of colon Is this a current diagnosis for this admission?: Yes (6) Cough Is this a current diagnosis for this admission?: Yes (7) History of colon cancer, stage IV Is this a current diagnosis for this admission?: Yes - Plan Summary Summary: 08/01/2019 Patient will be admitted to the hospital for gentle hydration, be put on a full liquid diet, and IV medications pain and vomiting. She will be seen by the oncologist tomorrow. I have ordered a rapid strep test in the ER. She has no evidence of thrush. Patient just several weeks ago had a paracentesis with 1000 cc of fluid removed. This may need to be done again. Patient will be admitted for vomiting and abdominal pain with oncology consult in the morning. 08/02/2019 Patient states she feels better. He did vomit once this morning but she said she was coughing so hard that she vomited. Patient is actually smiling this morning. We will continue with IV fluids, normal saline at 100/h ,is currently on IV Phenergan as well as IV Pepcid Patient is being seen by oncology for her metastatic cancer - Time Time Spent with patient: 25-34 minutes
[2019-08-02] MEDS: OLANZAPINE 2.5 MG TABLET PO SCH (22:29)
[2019-08-03] MEDS: NORMAL SALINE 1000 ML 1,000 ML IV PRN ×2 (07:27→21:19)
[2019-08-03] MEDS ORDERED: INFLUENZA QUAD (6MOS+) 2019-20 VAC 0.5 ML SYR IM ONE (08:00)
[2019-08-03] MEDS: DOCUSATE SODIUM 100 MG CAPSULE PO SCH ×2 (09:59→17:47)
[2019-08-03] MEDS: FAMOTIDINE INJ/PF 20 MG/2 ML SDV IV SCH ×2 (09:59→21:19)
[2019-08-03] MEDS: AMLODIPINE BESYLATE 5 MG TABLET PO SCH (09:59)
[2019-08-03] MEDS: ENOXAPARIN SODIUM INJ 40 MG/0.4 ML DISP.SYRIN SUBCUT SCH (10:00)
--- NOTE | 2019-08-03 13:54 | PDOC PROGRESS REPORT ---
Subjective Progress Note for:: 08/03/19 Subjective:: Patient states that she is feeling better, but she is not sure why she is sleeping all the time. Her nausea has now resolved. Reason For Visit: ABDOMINAL PAIN,ADENOCARCINOMA OF APPENDIX,VOMITING Physical Exam Vital Signs: Temp Pulse Resp BP Pulse Ox 97.4 F 70 16 145/84 H 100 08/03/19 12:00 08/03/19 12:00 08/03/19 12:00 08/03/19 12:00 08/03/19 12:00 Intake & Output 08/02/19 08/03/19 08/04/19 06:59 06:59 06:59 Intake Total 3200 2390 Balance 3200 2390 Weight 61.9 kg 61.4 kg General appearance: PRESENT: no acute distress Head exam: PRESENT: normocephalic Respiratory exam: PRESENT: unlabored GI/Abdominal exam: PRESENT: other - large abdominal girth due to tumor and ascites. No significant change from in the office last month. Extremities exam: ABSENT: pedal edema Neurological exam: PRESENT: alert, awake Psychiatric exam: PRESENT: appropriate affect Skin exam: PRESENT: normal color Results Laboratory Results: 08/02/19 03:53 08/02/19 03:53 08/01/19 08/01/19 11:52 11:52 Creatine Kinase < 20 L Troponin I < 0.012 Impressions: Acute Abdomen Series 08/01/19 14:32 IMPRESSION: Lines and tubes as above. Paucity of bowel gas within the central lower abdomen. No findings of high- grade bowel obstruction. Moderate left pleural effusion and left lower lobe atelectasis. Pelvic calcifications corresponding to known mass. Assessment & Plan - Diagnosis (1) Dehydration Is this a current diagnosis for this admission?: Yes Plan: Improved after fluid rehydration. Her hyponatremia has also improved. (2) Intractable vomiting with nausea Is this a current diagnosis for this admission?: Yes Plan: Now resolved. No evidence of bowel obstruction. May have been the hyponatremia causing the symptoms. (3) Stage IV carcinoma of colon Is this a current diagnosis for this admission?: Yes Plan: She has been on palliative Xeloda. This is currently on hold. (4) Anemia Qualifiers: Anemia type: unspecified type Qualified Code(s): D64.9 - Anemia, unspecified Is this a current diagnosis for this admission?: Yes Plan: No indication for blood transfusion at this time. - Time Time Spent with patient: 15-24 minutes - Plan Summary Plan Summary: Her initial symptoms have resolved. OK for discharge from our standpoint, although improvement in Na continues and oral fluid restriction with IV fluids may continue to help. I will consider restarting chemo as an outpatient, after she follows-up in the office.
--- NOTE | 2019-08-03 16:17 | PDOC PROGRESS REPORT ---
Subjective Progress Note for:: 08/03/19 Subjective:: No adverse events overnight. She said that she is not nauseated anymore has not been vomiting, but her appetite is still not very good. She is been taking some liquids by mouth but not a whole lot. She has not tried to eat anything like pudding or applesauce yet. Reason For Visit: ABDOMINAL PAIN,ADENOCARCINOMA OF APPENDIX,VOMITING Physical Exam Vital Signs: Temp Pulse Resp BP Pulse Ox 97.4 F 70 16 145/84 H 100 08/03/19 12:00 08/03/19 12:00 08/03/19 12:00 08/03/19 12:00 08/03/19 12:00 Intake & Output 08/02/19 08/03/19 08/04/19 06:59 06:59 06:59 Intake Total 3200 2390 Balance 3200 2390 Weight 61.9 kg 61.4 kg 61.4 kg General appearance: PRESENT: no acute distress, cooperative, disheveled Teeth exam: PRESENT: poor dentation Respiratory exam: PRESENT: clear to auscultation bettie, symmetrical, unlabored. ABSENT: accessory muscle use, chest wall tenderness, crackles, prolonged expiratory phas, rhonchi, tachypnea Cardiovascular exam: PRESENT: RRR, +S1, +S2 Pulses: PRESENT: normal carotid pulses Vascular exam: PRESENT: normal capillary refill GI/Abdominal exam: PRESENT: distended, firm - Especially on the right side, hypoactive bowel sounds, mass - Right side. ABSENT: guarding, rebound, tenderness Extremities exam: ABSENT: clubbing, pedal edema Musculoskeletal exam: PRESENT: normal inspection. ABSENT: deformity Neurological exam: PRESENT: alert, awake, oriented to person, oriented to place, oriented to situation Psychiatric exam: PRESENT: flat affect Skin exam: PRESENT: dry, warm Results Laboratory Results: 08/02/19 03:53 08/02/19 03:53 08/01/19 08/01/19 11:52 11:52 Creatine Kinase < 20 L Troponin I < 0.012 Impressions: Acute Abdomen Series 08/01/19 14:32 IMPRESSION: Lines and tubes as above. Paucity of bowel gas within the central lower abdomen. No findings of high- grade bowel obstruction. Moderate left pleural effusion and left lower lobe atelectasis. Pelvic calcifications corresponding to known mass. Assessment and Plan - Diagnosis (1) Dehydration Is this a current diagnosis for this admission?: Yes Plan: Continue IV fluids, encouraging p.o. hydration (2) Intractable vomiting with nausea Is this a current diagnosis for this admission?: Yes Plan: Seems to have resolved, encouraging p.o. intake (3) Stage IV carcinoma of colon Is this a current diagnosis for this admission?: Yes Plan: She is able to take p.o. again will resume her palliative chemotherapy - Plan Summary Summary: 08/01/2019 Patient will be admitted to the hospital for gentle hydration, be put on a full liquid diet, and IV medications pain and vomiting. She will be seen by the oncologist tomorrow. I have ordered a rapid strep test in the ER. She has no evidence of thrush. Patient just several weeks ago had a paracentesis with 1000 cc of fluid removed. This may need to be done again. Patient will be admitted for vomiting and abdominal pain with oncology consult in the morning. 08/02/2019 Patient states she feels better. He did vomit once this morning but she said she was coughing so hard that she vomited. Patient is actually smiling this morning. Patient's CBC and electrolytes are stable. Rapid strep test of her pharynx is negative. Weight when she came in was 58.7 kg today it is 61.9 kg We will continue with IV fluids, normal saline at 100/h ,is currently on IV Phenergan as well as IV Pepcid Patient is being seen by oncology for her metastatic cancer - Time Time Spent with patient: 15-24 minutes
[2019-08-03] MEDS: OLANZAPINE 2.5 MG TABLET PO SCH (21:19)
--- NOTE | 2019-08-04 07:58 | PDOC PROGRESS REPORT ---
Subjective Progress Note for:: 08/04/19 Subjective:: Patient only complaining of cough today. She states that vomiting is only due to cough. Sputum is brown. She has little appetite, but is keeping food down. ROS: No chest pain. Bowels are moving. Reason For Visit: ABDOMINAL PAIN,ADENOCARCINOMA OF APPENDIX,VOMITING Physical Exam Vital Signs: Temp Pulse Resp BP Pulse Ox 98 F 64 16 145/84 H 99 08/03/19 16:00 08/03/19 16:00 08/03/19 16:00 08/03/19 16:00 08/03/19 16:00 Intake & Output 08/03/19 08/04/19 08/05/19 06:59 06:59 06:59 Intake Total 2390 2703 Balance 2390 2703 Weight 61.4 kg 60.4 kg General appearance: PRESENT: no acute distress Head exam: PRESENT: normocephalic Respiratory exam: PRESENT: clear to auscultation bettie Cardiovascular exam: PRESENT: RRR GI/Abdominal exam: PRESENT: other - Large girth, unchanged from previous due to tumor. Extremities exam: ABSENT: pedal edema Neurological exam: PRESENT: alert, awake Psychiatric exam: PRESENT: appropriate affect Skin exam: PRESENT: normal color Results Laboratory Results: 08/02/19 03:53 08/02/19 03:53 08/01/19 08/01/19 11:52 11:52 Creatine Kinase < 20 L Troponin I < 0.012 Impressions: Acute Abdomen Series 08/01/19 14:32 IMPRESSION: Lines and tubes as above. Paucity of bowel gas within the central lower abdomen. No findings of high- grade bowel obstruction. Moderate left pleural effusion and left lower lobe atelectasis. Pelvic calcifications corresponding to known mass. Assessment & Plan - Diagnosis (1) Dehydration Is this a current diagnosis for this admission?: Yes Plan: resolved (2) Intractable vomiting with nausea Is this a current diagnosis for this admission?: Yes Plan: resolved (3) Stage IV carcinoma of colon Is this a current diagnosis for this admission?: Yes Plan: Chemo currently on hold. but patient has been slowly progressing. (4) Anemia Qualifiers: Anemia type: unspecified type Qualified Code(s): D64.9 - Anemia, unspecified Is this a current diagnosis for this admission?: Yes (5) Acute bronchitis with bronchospasm Is this a current diagnosis for this admission?: Yes Plan: I will check sputum culture and add mucinex. No antibiotics currently. NO fe oliva. May just be viral in nature. - Time Time Spent with patient: 15-24 minutes
[2019-08-04] MEDS: ENOXAPARIN SODIUM INJ 40 MG/0.4 ML DISP.SYRIN SUBCUT SCH (10:04)
[2019-08-04] MEDS: AMLODIPINE BESYLATE 5 MG TABLET PO SCH (10:04)
[2019-08-04] MEDS: GUAIFENESIN 600 MG TABLET.SA PO SCH ×2 (10:04→23:07)
[2019-08-04] MEDS: DOCUSATE SODIUM 100 MG CAPSULE PO SCH ×2 (10:04→18:00)
[2019-08-04] MEDS: FAMOTIDINE INJ/PF 20 MG/2 ML SDV IV SCH ×2 (10:04→23:07)
--- NOTE | 2019-08-04 17:14 | PDOC PROGRESS REPORT ---
Subjective Progress Note for:: 08/04/19 Subjective:: No adverse events overnight. She states she is eating a little bit of food today. She is just been on the full liquids and would like to try to advance her diet a little bit. Reason For Visit: ABDOMINAL PAIN,ADENOCARCINOMA OF APPENDIX,VOMITING Physical Exam Vital Signs: Temp Pulse Resp BP Pulse Ox 99.1 F 102 H 16 119/76 98 08/04/19 16:00 08/04/19 16:00 08/04/19 16:00 08/04/19 16:00 08/04/19 16:00 Intake & Output 08/03/19 08/04/19 08/05/19 06:59 06:59 06:59 Intake Total 2390 2703 1702 Balance 2390 2703 1702 Weight 61.4 kg 60.4 kg General appearance: PRESENT: no acute distress, cooperative, disheveled Teeth exam: PRESENT: poor dentation Respiratory exam: PRESENT: clear to auscultation bettie, symmetrical, unlabored. ABSENT: accessory muscle use, chest wall tenderness, crackles, prolonged expiratory phas, rhonchi, tachypnea Cardiovascular exam: PRESENT: RRR, +S1, +S2 Pulses: PRESENT: normal carotid pulses Vascular exam: PRESENT: normal capillary refill GI/Abdominal exam: PRESENT: distended, firm - Especially on the right side, hypoactive bowel sounds, mass - Right side. ABSENT: guarding, rebound, tenderness Extremities exam: ABSENT: clubbing, pedal edema Musculoskeletal exam: PRESENT: normal inspection. ABSENT: deformity Neurological exam: PRESENT: alert, awake, oriented to person, oriented to place, oriented to situation Psychiatric exam: PRESENT: flat affect Skin exam: PRESENT: dry, warm Results Laboratory Results: 08/02/19 03:53 08/02/19 03:53 08/01/19 18:19 Throat Throat Culture - Final NORMAL LITTLE 08/01/19 08/01/19 11:52 11:52 Creatine Kinase < 20 L Troponin I < 0.012 Impressions: Acute Abdomen Series 08/01/19 14:32 IMPRESSION: Lines and tubes as above. Paucity of bowel gas within the central lower abdomen. No findings of high- grade bowel obstruction. Moderate left pleural effusion and left lower lobe atelectasis. Pelvic calcifications corresponding to known mass. Assessment and Plan - Diagnosis (1) Dehydration Is this a current diagnosis for this admission?: Yes Plan: Resolved. Will stop IV fluids. (2) Intractable vomiting with nausea Is this a current diagnosis for this admission?: Yes Plan: Resolved. Advancing diet. (3) Stage IV carcinoma of colon Is this a current diagnosis for this admission?: Yes Plan: She is able to take p.o. again will resume her palliative chemotherapy - Plan Summary Summary: 08/01/2019 Patient will be admitted to the hospital for gentle hydration, be put on a full liquid diet, and IV medications pain and vomiting. She will be seen by the onco logist tomorrow. I have ordered a rapid strep test in the ER. She has no evidence of thrush. Patient just several weeks ago had a paracentesis with 1000 cc of fluid removed. This may need to be done again. Patient will be admitted for vomiting and abdominal pain with oncology consult in the morning. 08/02/2019 Patient states she feels better. He did vomit once this morning but she said she was coughing so hard that she vomited. Patient is actually smiling this morning. Patient's CBC and electrolytes are stable. Rapid strep test of her pharynx is negative. Weight when she came in was 58.7 kg today it is 61.9 kg We will continue with IV fluids, normal saline at 100/h ,is currently on IV Phenergan as well as IV Pepcid Patient is being seen by oncology for her metastatic cancer - Time Time Spent with patient: 15-24 minutes
[2019-08-04] MEDS: OLANZAPINE 2.5 MG TABLET PO SCH (23:07)
--- NOTE | 2019-08-05 07:54 | PDOC PROGRESS REPORT ---
Subjective Progress Note for:: 08/05/19 Subjective:: Patient feeling much better. She is anxious to go home today. Reason For Visit: ABDOMINAL PAIN,ADENOCARCINOMA OF APPENDIX,VOMITING Physical Exam Vital Signs: Temp Pulse Resp BP Pulse Ox 99.3 F 103 H 22 H 134/95 H 100 08/05/19 02:38 08/05/19 02:38 08/05/19 02:38 08/05/19 02:38 08/05/19 02:38 Intake & Output 08/04/19 08/05/19 08/06/19 06:59 06:59 06:59 Intake Total 2703 2452 Balance 2703 2452 Weight 60.4 kg 64 kg General appearance: PRESENT: well-developed, well-nourished Head exam: PRESENT: normocephalic Respiratory exam: PRESENT: unlabored GI/Abdominal exam: PRESENT: other - No change from previously Neurological exam: PRESENT: alert, awake Psychiatric exam: PRESENT: appropriate affect Skin exam: PRESENT: normal color Results Laboratory Results: 08/02/19 03:53 08/02/19 03:53 08/01/19 18:19 Throat Throat Culture - Final NORMAL LITTLE 08/01/19 08/01/19 11:52 11:52 Creatine Kinase < 20 L Troponin I < 0.012 Impressions: Acute Abdomen Series 08/01/19 14:32 IMPRESSION: Lines and tubes as above. Paucity of bowel gas within the central lower abdomen. No findings of high- grade bowel obstruction. Moderate left pleural effusion and left lower lobe atelectasis. Pelvic calcifications corresponding to known mass. Assessment & Plan - Diagnosis (1) Dehydration Is this a current diagnosis for this admission?: Yes (2) Intractable vomiting with nausea Is this a current diagnosis for this admission?: Yes (3) Stage IV carcinoma of colon Is this a current diagnosis for this admission?: Yes (4) Anemia Qualifiers: Anemia type: unspecified type Qualified Code(s): D64.9 - Anemia, unspecified Is this a current diagnosis for this admission?: Yes (5) Acute bronchitis with bronchospasm Is this a current diagnosis for this admission?: Yes - Time Time Spent with patient: Less than 15 minutes - Plan Summary Plan Summary: OK for discharge today. Patient should be instructed to HOLD her chemo pills until she sees me in the office next week. Appointment has been arranged.
[2019-08-05] MEDS: ENOXAPARIN SODIUM INJ 40 MG/0.4 ML DISP.SYRIN SUBCUT SCH (10:20)
[2019-08-05] MEDS: DOCUSATE SODIUM 100 MG CAPSULE PO SCH ×2 (10:20→17:10)
[2019-08-05] MEDS: AMLODIPINE BESYLATE 5 MG TABLET PO SCH (10:20)
[2019-08-05] MEDS: FAMOTIDINE INJ/PF 20 MG/2 ML SDV IV SCH ×2 (10:20→22:21)
[2019-08-05] MEDS: GUAIFENESIN 600 MG TABLET.SA PO SCH ×2 (10:20→22:21)
--- NOTE | 2019-08-05 16:29 | PDOC PROGRESS REPORT ---
Subjective Progress Note for:: 08/05/19 Subjective:: No adverse events overnight. No new complaints. Her belly feels more swollen than it typically does. She is been able to eat a little bit. She vomited up about 400 cc of stuff, but says she did not feel nauseated. Reason For Visit: ABDOMINAL PAIN,ADENOCARCINOMA OF APPENDIX,VOMITING Physical Exam Vital Signs: Temp Pulse Resp BP Pulse Ox 97.5 F 106 H 16 141/93 H 100 08/05/19 11:07 08/05/19 11:07 08/05/19 11:07 08/05/19 11:07 08/05/19 11:07 Intake & Output 08/04/19 08/05/19 08/06/19 06:59 06:59 06:59 Intake Total 2703 2452 360 Balance 2703 2452 360 Weight 60.4 kg 64 kg General appearance: PRESENT: no acute distress, cooperative, disheveled Teeth exam: PRESENT: poor dentation Respiratory exam: PRESENT: clear to auscultation bettie, symmetrical, unlabored. ABSENT: accessory muscle use, chest wall tenderness, crackles, prolonged expiratory phas, rhonchi, tachypnea Cardiovascular exam: PRESENT: RRR, +S1, +S2 Pulses: PRESENT: normal carotid pulses Vascular exam: PRESENT: normal capillary refill GI/Abdominal exam: PRESENT: distended, hypoactive bowel sounds, mass - Right side. ABSENT: guarding, rebound, tenderness Extremities exam: ABSENT: clubbing, pedal edema Musculoskeletal exam: PRESENT: normal inspection. ABSENT: deformity Neurological exam: PRESENT: alert, awake, oriented to person, oriented to place, oriented to situation Psychiatric exam: PRESENT: flat affect Skin exam: PRESENT: dry, warm Results Laboratory Results: 08/02/19 03:53 08/02/19 03:53 08/01/19 11:52 Blood Blood Culture (PCR) - Final Staphylococcus Species 08/01/19 08/01/19 11:52 11:52 Creatine Kinase < 20 L Troponin I < 0.012 Impressions: Acute Abdomen Series 08/01/19 14:32 IMPRESSION: Lines and tubes as above. Paucity of bowel gas within the central lower abdomen. No findings of high- grade bowel obstruction. Moderate left pleural effusion and left lower lobe atelectasis. Pelvic calcifications corresponding to known mass. Assessment and Plan - Diagnosis (1) Dehydration Is this a current diagnosis for this admission?: Yes Plan: Resolved. Will stop IV fluids. (2) Intractable vomiting with nausea Is this a current diagnosis for this admission?: Yes Plan: Resolved. Advancing diet has for the most part been well-tolerated. I think she vomited a little bit this morning because she does not have any room in her abdomen. I am going to have her checked out to see if she is got some ascites that can be drawn off some may be she will have a little bit more room in her abdomen, at least for a little while. (3) Stage IV carcinoma of colon Is this a current diagnosis for this admission?: Yes Plan: She is able to take p.o. again will resume her palliative chemotherapy - Plan Summary Summary: 08/01/2019 Patient will be admitted to the hospital for gentle hydration, be put on a full liquid diet, and IV medications pain and vomiting. She will be seen by the oncologist tomorrow. I have ordered a rapid strep test in the ER. She has no evidence of thrush. Patient just several weeks ago had a paracentesis with 1000 cc of fluid removed. This may need to be done again. Patient will be admitted for vomiting and abdominal pain with oncology consult in the morning. 08/02/2019 Patient states she feels better. He did vomit once this morning but she said she was coughing so hard that she vomited. Patient is actually smiling this morning. Patient's CBC and electrolytes are stable. Rapid strep test of her pharynx is negative. Weight when she came in was 58.7 kg today it is 61.9 kg We will continue with IV fluids, normal saline at 100/h ,is currently on IV Phenergan as well as IV Pepcid Patient is being seen by oncology for her metastatic cancer - Time Time Spent with patient: 15-24 minutes
[2019-08-05] MEDS: OLANZAPINE 2.5 MG TABLET PO SCH (22:22)
[2019-08-06 05:03] LABS: INTERNATIONAL RATION (INR) 1.17
[2019-08-06 05:04] LABS: PARTIAL THROMBOPLASTIN TIME 35.6 SEC (23.5-35.8)
[2019-08-06] MEDS: GUAIFENESIN 600 MG TABLET.SA PO SCH (09:59)
[2019-08-06] MEDS: DOCUSATE SODIUM 100 MG CAPSULE PO SCH ×2 (09:59→18:22)
[2019-08-06] MEDS: FAMOTIDINE INJ/PF 20 MG/2 ML SDV IV SCH ×2 (09:59→21:27)
[2019-08-06] MEDS: AMLODIPINE BESYLATE 5 MG TABLET PO SCH (10:00)
--- NOTE | 2019-08-06 12:51 | RADIOLOGY REPORT (SQ) ---
EXAM DESCRIPTION: U/S ABD PARACENTESIS COMPLETED DATE/TIME: 08/06/2019 10:57 am REASON FOR STUDY: therapeutic paracentesis, known malignant ascites COMPARISON CT of the abdomen from 07/09/2019. LIMITATIONS: None. PROCEDURE: After obtaining informed consent, the patient was brought to the ultrasound suite. The p rocedure was performed with the patient on a gurney. Ultrasound was used to identify a prominent poc ket of ascites in the right lower quadrant. An appropriate access site was selected. The patient wa s prepped and draped in usual sterile fashion. The access site was anesthetized with 5 mL 1% lidoca ine. A [id number] needle was advanced into the fluid. After aspiration of fluid the needle, th e catheter was advanced off the needle into the fluid. A total of 400 mL of straw-colored fluid was removed. The patient tolerated the procedure well left the department in satisfactory condition. IMPRESSION: SUCCESSFUL ULTRASOUND GUIDED PARACENTESIS. COMMENT: Patient medication list reviewed: Yes- Quality ID# [id number]:Eligible professional attests to doc umenting in the medical record they obtained, updated, or reviewed the patient's current medications. TECHNICAL DOCUMENTATION: JOB ID: [id number] [employer] All Rights Reserved Reading location - IP/workstation name: [email or web address]
--- NOTE | 2019-08-06 16:25 | PDOC PROGRESS REPORT ---
Subjective Progress Note for:: 08/06/19 Subjective:: No adverse events overnight. No new complaints. No nausea or vomiting. She is been able to tolerate some soft food. Reason For Visit: ABDOMINAL PAIN,ADENOCARCINOMA OF APPENDIX,VOMITING Physical Exam Vital Signs: Temp Pulse Resp BP Pulse Ox 98.9 F 105 H 16 123/90 H 100 08/06/19 16:03 08/06/19 16:03 08/06/19 16:03 08/06/19 16:03 08/06/19 16:03 Intake & Output 08/05/19 08/06/19 08/07/19 06:59 06:59 06:59 Intake Total 2452 840 Balance 2452 840 Weight 64 kg 62 kg 62 kg General appearance: PRESENT: no acute distress, cooperative, disheveled Teeth exam: PRESENT: poor dentation Respiratory exam: PRESENT: clear to auscultation bettie, symmetrical, unlabored. ABSENT: accessory muscle use, chest wall tenderness, crackles, prolonged expiratory phas, rhonchi, tachypnea Cardiovascular exam: PRESENT: RRR, +S1, +S2 Pulses: PRESENT: normal carotid pulses Vascular exam: PRESENT: normal capillary refill GI/Abdominal exam: PRESENT: distended, hypoactive bowel sounds, mass - Right side. ABSENT: guarding, rebound, tenderness Extremities exam: ABSENT: clubbing, pedal edema Musculoskeletal exam: PRESENT: normal inspection. ABSENT: deformity Neurological exam: PRESENT: alert, awake, oriented to person, oriented to place, oriented to situation Psychiatric exam: PRESENT: flat affect Skin exam: PRESENT: dry, warm Results Laboratory Results: 08/02/19 03:53 08/02/19 03:53 08/01/19 14:44 Blood Blood Culture - Final NO GROWTH IN 5 DAYS 08/01/19 11:52 Blood Blood Culture (PCR) - Final Staphylococcus Species 08/01/19 11:52 Blood Blood Culture - Final Staphylococcus Cohnii 08/04/19 18:05 Sputum Gram Stain - Final 08/04/19 18:05 Sputum Sputum Culture - Final NORMAL LITTLE 08/01/19 08/01/19 11:52 11:52 Creatine Kinase < 20 L Troponin I < 0.012 Impressions: Acute Abdomen Series 08/01/19 14:32 IMPRESSION: Lines and tubes as above. Paucity of bowel gas within the central lower abdomen. No findings of high- grade bowel obstruction. Moderate left pleural effusion and left lower lobe atelectasis. Pelvic calcifications corresponding to known mass. Paracentesis Ultrasound 08/06/19 00:00 IMPRESSION: SUCCESSFUL ULTRASOUND GUIDED PARACENTESIS. Assessment and Plan - Diagnosis (1) Dehydration Is this a current diagnosis for this admission?: Yes Plan: Resolved. Will stop IV fluids. (2) Intractable vomiting with nausea Is this a current diagnosis for this admission?: Yes Plan: Resolved. Advancing diet has for the most part been well-tolerated. (3) Stage IV carcinoma of colon Is this a current diagnosis for this admission?: Yes Plan: She is going to follow-up with oncology, but the tumor has progressed despite treatment. We rachele some fluid off her belly but only about 400 cc came off, so pretty much everything that is occupying space in her abdomen is not a lot of fluid, mostly just a very large tumor. We will plan on sending her home in the morning. - Plan Summary Summary: 08/01/2019 Patient will be admitted to the hospital for gentle hydration, be put on a full liquid diet, and IV medications pain and vomiting. She will be seen by the oncologist tomorrow. I have ordered a rapid strep test in the ER. She has no evidence of thrush. Patient just several weeks ago had a paracentesis with 1000 cc of fluid removed. This may need to be done again. Patient will be admitted for vomiting and abdominal pain with oncology consult in the morning. 08/02/2019 Patient states she feels better. He did vomit once this morning but she said she was coughing so hard that she vomited. Patient is actually smiling this morning. Patient's CBC and electrolytes are stable. Rapid strep test of her pharynx is negative. Weight when she came in was 58.7 kg today it is 61.9 kg We will continue with IV fluids, normal saline at 100/h ,is currently on IV Phenergan as well as IV Pepcid Patient is being seen by oncology for her metastatic cancer - Time Time Spent with patient: 15-24 minutes
[2019-08-06] MEDS: PROMETHAZINE HCL INJ 25 MG/1 ML VIAL IV PRN (21:26)
[2019-08-06] MEDS: OLANZAPINE 2.5 MG TABLET PO SCH (21:27)
[2019-08-07] MEDS: GUAIFENESIN 600 MG TABLET.SA PO SCH (03:58)
[2019-08-07] MEDS: PROMETHAZINE HCL INJ 25 MG/1 ML VIAL IV PRN (08:30)
[2019-08-07 09:40] VITALS: BP 119/76
--- NOTE | 2019-08-07 16:12 | PDOC DISCHARGE SUMMARY ---
Impression - Admit/DC Date/PCP Admission Date/Primary Care Provider: 08/01/19 16:52 CHRISTINA BALDWIN MD Discharge Date: 08/07/19 - Discharge Diagnosis (1) Dehydration Is this a current diagnosis for this admission?: Yes (2) Intractable vomiting with nausea Is this a current diagnosis for this admission?: Yes (3) Stage IV carcinoma of colon Is this a current diagnosis for this admission?: Yes - Assessment Summary: 08/01/2019 Patient will be admitted to the hospital for gentle hydration, be put on a full liquid diet, and IV medications pain and vomiting. She will be seen by the oncologist tomorrow. I have ordered a rapid strep test in the ER. She has no evidence of thrush. Patient just several weeks ago had a paracentesis with 1000 cc of fluid removed. This may need to be done again. Patient will be admitted for vomiting and abdominal pain with oncology consult in the morning. 08/02/2019 Patient states she feels better. He did vomit once this morning but she said she was coughing so hard that she vomited. Patient is actually smiling this morning. Patient's CBC and electrolytes are stable. Rapid strep test of her pharynx is negative. Weight when she came in was 58.7 kg today it is 61.9 kg We will continue with IV fluids, normal saline at 100/h ,is currently on IV Phenergan as well as IV Pepcid Patient is being seen by oncology for her metastatic cancer - Additional Information Resuscitation Status: Full Code Discharge Diet: Other (Comments) Discharge Activity: Balance Activity w/Rest, Supervised Activity Referrals: SANDRA MITCHELL MD [ACTIVE STAFF] - 08/10/19 9:30 am Prescriptions: Ondansetron HCl 4 mg PO Q4HP PRN #30 tablet PRN Reason: For Nausea/Vomiting Oxycodone HCl/Acetaminophen [Percocet 5-325 mg Tablet] 1 tab PO Q4HP PRN #20 tablet PRN Reason: Metoclopramide HCl [Reglan 10 mg Tablet] 10 mg PO AC #90 tablet Home Medications: Amlodipine Besylate [Norvasc 5 mg Tablet] 5 mg PO DAILY #30 tablet 05/28/19 Metoclopramide HCl [Reglan 10 mg Tablet] 10 mg PO AC #90 tablet 08/07/19 Ondansetron HCl 4 mg PO Q4HP PRN #30 tablet 08/07/19 Oxycodone HCl/Acetaminophen [Percocet 5-325 mg Tablet] 1 tab PO Q4HP PRN #20 tablet 08/07/19 History of Present Illiness History of Present Illness: ISIS GATES is a 58 year old female who unfortunately has metastatic colorectal cancer as well as malignant ascites, evidently patient has stage IV cancer of the appendiceal region. Patient states that for the last 2 to 3 days she has been vomiting up food but she can swallow and hold down liquids. She also comes in for abdominal pain as well. Patient also states for the last 2 to 3 days she has had laryngitis and a sore throat. She denies fever and chills. CT scan done in the emergency room shows metastatic colon cancer however no bowel obstruction. She is scheduled to see Dr. Mitchell for the first time on August 05. Patient has been cared for by another oncologist. Hospital Course Hospital Course: We gave her fluids and antiemetics until she was not feeling nauseated. Even when she was not feeling nauseated and she could eat, the tumor was taking up somewhat space in her abdomen that she would occasionally vomit a little bit after she had eaten or drank anything even if she was not nauseated. She is on palliative chemotherapy but does not want to do hospice yet, despite the fact that she would be hospice appropriate. We got her to where she was feeling a little bit better and gave her prescriptions for some Zofran some Reglan to take at home. She has follow-up scheduled in a few days with Dr. Mitchell. She was discharged today in stable condition. Physical Exam Vital Signs: Temp Pulse Resp BP Pulse Ox 99.2 F 104 H 16 119/76 97 08/07/19 09:36 08/07/19 09:36 08/07/19 09:36 08/07/19 09:36 08/07/19 09:36 Intake & Output 08/06/19 08/07/19 08/08/19 06:59 06:59 06:59 Intake Total 840 240 Balance 840 240 Weight 62 kg 60.8 kg General appearance: PRESENT: no acute distress, cooperative, disheveled Teeth exam: PRESENT: poor dentation Respiratory exam: PRESENT: clear to auscultation bettie, symmetrical, unlabored. ABSENT: accessory muscle use, chest wall tenderness, crackles, prolonged expiratory phas, rhonchi, tachypnea Cardiovascular exam: PRESENT: RRR, +S1, +S2 Pulses: PRESENT: normal carotid pulses Vascular exam: PRESENT: normal capillary refill GI/Abdominal exam: PRESENT: distended, hypoactive bowel sounds, mass -large and protuberant filling her abdomen and pelvis. ABSENT: guarding, rebound, tenderness Extremities exam: ABSENT: clubbing, pedal edema Musculoskeletal exam: PRESENT: normal inspection. ABSENT: deformity Neurological exam: PRESENT: alert, awake, oriented to person, oriented to place, oriented to situation Psychiatric exam: PRESENT: flat affect Skin exam: PRESENT: dry, warm Results Laboratory Results: WBC 10.1 10^3/uL (4.0-10.5) 08/02/19 03:53 RBC 3.06 10^6/uL (3.72-5.28) L 08/02/19 03:53 Hgb 8.8 g/dL (12.0-15.5) L 08/02/19 03:53 Hct 26.6 % (36.0-47.0) L 08/02/19 03:53 MCV 87 fl (80-97) 08/02/19 03:53 MCH 28.7 pg (27.0-33.4) 08/02/19 03:53 MCHC 33.0 g/dL (32.0-36.0) 08/02/19 03:53 RDW 17.9 % (11.5-14.0) H 08/02/19 03:53 Plt Count 306 10^3/uL (150-450) 08/02/19 03:53 Lymph % (Auto) 6.4 % (13-45) L 08/02/19 03:53 [place] % (Auto) 4.6 % (3-13) 08/02/19 03:53 Eos % (Auto) 0.0 % (0-6) 08/02/19 03:53 Baso % (Auto) 0.0 % (0-2) 08/02/19 03:53 Absolute Neuts (auto) 9.0 10^3/uL (1.7-8.2) H 08/02/19 03:53 Absolute Lymphs (auto) 0.6 10^3/uL (0.5-4.7) 08/02/19 03:53 Absolute Monos (auto) 0.5 10^3/uL (0.1-1.4) 08/02/19 03:53 Absolute Eos (auto) 0.0 10^3/uL (0.0-0.6) 08/02/19 03:53 Absolute Basos (auto) 0.0 10^3/uL (0.0-0.2) 08/02/19 03:53 Seg Neutrophils % 89.0 % (42-78) H 08/02/19 03:53 PT 15.0 SEC (11.4-15.4) 08/06/19 03:42 INR 1.17 08/06/19 03:42 APTT 35.6 SEC (23.5-35.8) 08/06/19 03:42 VBG pH 7.45 (7.30-7.42) H 08/01/19 11:52 VBG pCO2 50.1 mmHg (35-63) 08/01/19 11:52 VBG HCO3 34.3 mmol/L (20-32) H 08/01/19 11:52 VBG Base Excess 8.6 mmol/L 08/01/19 11:52 Sodium 136.9 mmol/L (137-145) L 08/02/19 03:53 Potassium 3.6 mmol/L (3.6-5.0) 08/02/19 03:53 Chloride 96 mmol/L (98-107) L 08/02/19 03:53 Carbon Dioxide 30 mmol/L (22-30) 08/02/19 03:53 Anion Gap 11 (5-19) 08/02/19 03:53 BUN 32 mg/dL (7-20) H 08/02/19 03:53 Creatinine 0.84 mg/dL (0.52-1.25) 08/02/19 03:53 Est GFR ( Amer) > 60 (>60) 08/02/19 03:53 Est GFR (MDRD) Non-Af > 60 (>60) 08/02/19 03:53 Glucose 131 mg/dL (75-110) H 08/02/19 03:53 POC Glucose 82 mg/dL (70-110) 08/07/19 08:27 Lactic Acid 2.0 mmol/L (0.7-2.1) 08/01/19 11:52 Calcium 8.5 mg/dL (8.4-10.2) 08/02/19 03:53 Magnesium 1.7 mg/dL (1.6-2.3) 08/01/19 11:52 Total Bilirubin 0.8 mg/dL (0.2-1.3) 08/01/19 11:52 Direct Bilirubin 0.2 mg/dL (0.0-0.4) 08/01/19 11:52 Neonat Total Bilirubin Not Reportable 08/01/19 11:52 Neonat Direct Bilirubin Not Reportable 08/01/19 11:52 Neonat Indirect Bili Not Reportable 08/01/19 11:52 AST 15 U/L (14-36) 08/01/19 11:52 ALT 6 U/L (<35) 08/01/19 11:52 Alkaline Phosphatase 46 U/L (38-126) 08/01/19 11:52 Creatine Kinase < 20 U/L (30-135) L 08/01/19 11:52 Troponin I < 0.012 ng/mL 08/01/19 11:52 Total Protein 7.3 g/dL (6.3-8.2) 08/01/19 11:52 Albumin 3.4 g/dL (3.5-5.0) L 08/01/19 11:52 Urine Color LILIANA 08/01/19 14:00 Urine Appearance SLIGHTLY-CLOUDY 08/01/19 14:00 Urine pH 5.0 (5.0-9.0) 08/01/19 14:00 Ur Specific [place] 1.027 08/01/19 14:00 Urine Protein 30 mg/dL (NEGATIVE) H 08/01/19 14:00 Urine Glucose (UA) NEGATIVE mg/dL (NEGATIVE) 08/01/19 14:00 Urine Ketones TRACE mg/dL (NEGATIVE) H 08/01/19 14:00 Urine Blood NEGATIVE (NEGATIVE) 08/01/19 14:00 Urine Nitrite NEGATIVE (NEGATIVE) 08/01/19 14:00 Urine Bilirubin SMALL (NEGATIVE) H 08/01/19 14:00 Urine Urobilinogen 4.0 mg/dL (<2.0) H 08/01/19 14:00 Ur Leukocyte Esterase NEGATIVE (NEGATIVE) 08/01/19 14:00 Urine WBC (Auto) 3 /HPF 08/01/19 14:00 Urine RBC (Auto) 3 /HPF 08/01/19 14:00 U Hyaline Cast (Auto) 3 /LPF 08/01/19 14:00 Urine Bacteria (Auto) TRACE /HPF 08/01/19 14:00 Squamous Epi Cells Auto <1 /HPF 08/01/19 14:00 Urine Mucus (Auto) FEW /LPF 08/01/19 14:00 Urine Ascorbic Acid NEGATIVE (NEGATIVE) 08/01/19 14:00 Group A Strep Rapid NEGATIVE (NEGATIVE) 08/01/19 18:19 08/01/19 11:52 Troponin I < 0.012 Impressions: Acute Abdomen Series 08/01/19 14:32 IMPRESSION: Lines and tubes as above. Paucity of bowel gas within the central lower abdomen. No findings of high- grade bowel obstruction. Moderate left pleural effusion and left lower lobe atelectasis. Pelvic calcifications corresponding to known mass. Paracentesis Ultrasound 08/06/19 00:00 IMPRESSION: SUCCESSFUL ULTRASOUND GUIDED PARACENTESIS. Plan Time Spent: Greater than 30 Minutes Stroke Is this a Stroke Patient?: No Acute Heart Failure - Is this a Heart Failure Patient?: No
== END 2019-08-07 09:45 | disposition home or self-care (01) | DRG 375 ==
LOC: ER 10:43 → EH 16:52 → 4N 21:27
PROVIDERS: ADMIT Internal Medicine; ATTEND Internal Medicine
PROC: 0W9G3ZZ Drainage of Peritoneal Cavity, Percutaneous Approach (ICD-10-PCS; principal; 2019-08-06)
DX: C19 Malignant neoplasm of rectosigmoid junction (principal); R18.0 Malignant ascites; C78.6 Secondary malignant neoplasm of retroperitoneum and peritoneum; C18.1 Malignant neoplasm of appendix; E87.1 Hypo-osmolality and hyponatremia; E86.0 Dehydration; Z51.5 Encounter for palliative care; I10 Essential (primary) hypertension; K21.9 Gastro-esophageal reflux disease without esophagitis; F32.9 Major depressive disorder, single episode, unspecified; Z96.0 Presence of urogenital implants; F17.200 Nicotine dependence, unspecified, uncomplicated; J04.0 Acute laryngitis; J20.9 Acute bronchitis, unspecified; D64.9 Anemia, unspecified; Z79.899 Other long term (current) drug therapy
CPT/HCPCS: 36415; 49083; 74022; 80048; 80053; 81001; 82550; 82803; 82962; 83605; 83735; 84484; 85025; 85610; 85730; 87040; 87070; 87077; 87150; 87186; 87205; 87880; 93005; 93010; 94640; 96361; 96374; 96375; 99285; J1650; J2405; J2550; J2930; J3490; J7030; J7121; J7620; S0028

== ENCOUNTER 2019-08-09 08:41 | Inpatient (IN) | payer MEDICARE, MEDICAID ==
[2019-08-09 09:35] LABS: ABSOLUTE MONOCYTES (AUTO) 0.8 10^3/uL (0.1-1.4); ABSOLUTE NEUT (AUTO) 12.4 10^3/uL (1.7-8.2); BASOPHILS % (AUTO) 0.1 % (0-2); HEMATOCRIT 26.3 % (36.0-47.0); HEMOGLOBIN 8.1 g/dL (12.0-15.5); MEAN CORPUSCULAR HEMOGLOBIN 28.2 pg (27.0-33.4); MEAN CORPUSCULAR HGB CONC 30.9 g/dL (32.0-36.0); MONOCYTES % (AUTO) 5.8 % (3-13); PLATELET COUNT 256 10^3/uL (150-450); RED BLOOD COUNT 2.88 10^6/uL (3.72-5.28); RED CELL DISTRIBUTION WIDTH 18.5 % (11.5-14.0); SEGMENTED NEUTROPHILS % (AUTO) 87.1 % (42-78); TOTAL CELLS COUNTED % (AUTO) 100 %; VENOUS BLOOD BASE EXCESS 3.3 mmol/L; VENOUS BLOOD HCO3 28.9 mmol/L (20-32); VENOUS BLOOD PCO2 53.5 mmHg (35-63); VENOUS BLOOD PH 7.35 (7.30-7.42); WHITE BLOOD COUNT 14.3 10^3/uL (4.0-10.5)
--- NOTE | 2019-08-09 09:39 | ER Document Report ---
ED Respiratory Problem - General Chief Complaint: Respiratory Distress Stated Complaint: ALTERED MENTAL STATUS Time Seen by Provider: 08/09/19 09:34 Notes: Patient brought in by rescue for shortness of breath and difficulty breathing this morning. EMS found the patient with an O2 sat of 70%. They gave her a nebulizer treatment and put her on oxygen in route to the hospital. Blood sugar was also found to be low at 55 and she was given oral glucose and it was 66 when she arrived here. Her blood pressure was 59/40 upon arrival in the ED. She was given a liter of saline as a bolus. Patient was just recently in the hospital and discharged home 2 days ago. She has a history of colon cancer on chemotherapy. Also has hypertension. Family just arrived and tell me that the patient was diagnosed with bronchitis when she was discharged in the hospital Friday. Family says that she is not on any home oxygen and she had difficulty breathing starting this morning. Patient has a history of colon cancer and is under the care of local oncologist, Dr. Nuñez. She is apparently a full code at this time. TRAVEL OUTSIDE OF THE [place] IN LAST 30 DAYS: No - Related Data Allergies/Adverse Reactions: No Known Allergies Allergy (Verified 06/21/17 15:55) Past Medical History - Social History Smoking Status: Unknown if Ever Smoked Family History: Reviewed & Not Pertinent Patient has suicidal ideation: No Patient has homicidal ideation: No - Past Medical History Cardiac Medical History: Reports: Hx Hypertension Neurological Medical History: Reports: Hx Seizures - Last episode 1 or 2 years ago. Never on antiepileptic.. Denies: Hx Cerebrovascular Accident Malignancy Medical History: Reports: Hx Colorectal Cancer - Stage IV GI Medical History: Reports: Hx Gastroesophageal Reflux Disease Musculoskeletal Medical History: Denies Hx Arthritis Psychiatric Medical History: Reports: Hx Depression Infectious Medical History: Denies: Hx Hepatitis Past Surgical History: Reports: Hx Section, Hx Kidney (Renal Surgery) - stents, Other - Ureteral stent implants for hydronephrosis secondary to tumor mass. Denies: Hx Hysterectomy - Immunizations Immunizations up to date: No Hx Diphtheria, Pertussis, Tetanus Vaccination: No Review of Systems - Review of Systems Notes: REVIEW OF SYSTEMS: CONSTITUTIONAL : Denies fever. EENT: Denies eye, ear, nose or mouth or throat pain or other symptoms. CARDIOVASCULAR: Denies chest pain. RESPIRATORY: See HPI. GASTROINTESTINAL: Diffuse swelling of the abdomen which has been present for a while. Has had some vomiting. No diarrhea reported. GENITOURINARY: Denies difficulty or painful urinating, urinary frequency, blood in urine. MUSCULOSKELETAL: Denies back or neck pain. Denies joint pain or swelling. SKIN: Denies rash or skin lesions. NEUROLOGICAL: Denies LOC or altered mental status. Denies headache. Denies sensory loss or motor deficits. ALL OTHER SYSTEMS REVIEWED AND NEGATIVE. Physical Exam - Vital signs Vitals: BP 52/37 L 08/09/19 08:45 Interpretation: Hypotensive, Hypoxic Notes: PHYSICAL EXAMINATION: GENERAL: Appears to be in poor health, but no acute distress at this moment. On nasal oxygen. Blood pressure over 100 systolic now that she is had a liter of saline by nursing staff. HEAD: Atraumatic, normocephalic. EYES: Pupils equal round and reactive to light, extraocular movements intact. ENT: oropharynx clear without exudates. Moist mucous membranes. NECK: Normal range of motion, supple. LUNGS: Breath sounds clear and equal bilaterally. HEART: Regular rate and rhythm without murmurs. ABDOMEN: Extremely large abdomen which appears to be ascites from my clinical evaluation. Mild diffuse tenderness without localization. No guarding. BACK: No tenderness throughout entire back. EXTREMITIES: Normal range of motion without pain. Negative edema bilaterally. Negative Homans bilaterally. NEUROLOGICAL: Normal speech, unable to walk because of weakness. Normal sensory, motor, and reflex exams. Awake, alert, and oriented x3. PSYCH: Normal mood, normal affect. SKIN: Warm, dry, no rashes. Course - Re-evaluation Re-evalutation: 08/09/19 12:08 Discussed the case with the hospitalist who will admit the patient to [facility]. 08/09/19 12:0 Patient was started on antibiotics, 2 g of Rocephin IV. - Vital Signs Vital signs: Temp Pulse Resp BP Pulse Ox 97.7 F 93 17 46/26 L 100 08/09/19 23:16 08/09/19 23:13 08/09/19 23:16 08/09/19 23:16 08/09/19 23:13 - Laboratory Result Diagrams: 08/09/19 09:05 08/09/19 09:05 Laboratory results interpreted by me: 08/09/19 08/09/19 08/09/19 09:04 09:05 09:05 WBC 14.3 H RBC 2.88 L Hgb 8.1 L Hct 26.3 L MCHC 30.9 L RDW 18.5 H Lymph % (Auto) 7.0 L Absolute Neuts (auto) 12.4 H Seg Neutrophils % 87.1 H Sodium 148.1 H Potassium 3.0 L* BUN 49 H Creatinine 2.32 H Est GFR ( Amer) 26 L Est GFR (MDRD) Non-Af 21 L Glucose 72 L POC Glucose 66 L Lactic Acid Calcium 8.2 L Total Protein 6.1 L Albumin 2.8 L Urine Protein Urine Ketones Urine Blood Urine Urobilinogen Ur Leukocyte Esterase 08/09/19 08/09/19 09:05 11:19 WBC RBC Hgb Hct MCHC RDW Lymph % (Auto) Absolute Neuts (auto) Seg Neutrophils % Sodium Potassium BUN Creatinine Est GFR ( Amer) Est GFR (MDRD) Non-Af Glucose POC Glucose Lactic Acid 6.3 H Calcium Total Protein Albumin Urine Protein 100 H Urine Ketones TRACE H Urine Blood SMALL H Urine Urobilinogen 2.0 H Ur Leukocyte Esterase LARGE H - Diagnostic Test Radiology results interpreted by nh: 08/09/19 12:07 Chest x-ray shows left basilar consolidation plus pleural effusion. Also a couple of other areas of scattered infiltrates in the right upper and right lower lung. Findings are consistent with pneumonia. - EKG Interpretation by Nv EKG shows normal: Sinus rhythm Rate: Tachycardia Additional EKG results interpreted by nh: 08/09/19 12:[address] changes. No STEMI. Discharge - Discharge Clinical Impression: Hypoxia, Hypotension, Pneumonia Condition: Poor Disposition: ADMITTED INPATIENT Admitting Provider: Moris (Hospitalist) Unit Admitted: [facility]
[2019-08-09] MEDS ORDERED: NORMAL SALINE 1000 ML 1,000 ML IV ONE (09:55)
[2019-08-09 09:57] LABS: ALBUMIN 2.8 g/dL (3.5-5.0); ALKALINE PHOSPHATASE 46 U/L (38-126); ANION GAP 19 (5-19); ASPARTATE AMINO TRANSFERASE 16 U/L (14-36); BILIRUBIN,DIRECT 0.3 mg/dL (0.0-0.4); BILIRUBIN,TOTAL 0.5 mg/dL (0.2-1.3); BLOOD UREA NITROGEN 49 mg/dL (7-20); CALCIUM 8.2 mg/dL (8.4-10.2); CARBON DIOXIDE 24 mmol/L (22-30); CHLORIDE 105 mmol/L (98-107); GLUCOSE 72 mg/dL (75-110); TOTAL PROTEIN 6.1 g/dL (6.3-8.2)
[2019-08-09 10:00] LABS: ALCOHOL < 10 mg/dL (NONE DETECTED)
[2019-08-09 10:17] LABS: MEAN CORPUSCULAR VOLUME 91 fl (80-97)
--- NOTE | 2019-08-09 10:18 | RADIOLOGY REPORT (SQ) ---
EXAM DESCRIPTION: CHEST SINGLE VIEW COMPLETED DATE/TIME: 08/09/2019 10:07 am REASON FOR STUDY: S OB, hypoxia, Hx CA colon, On chemo COMPARISON: None. EXAM PARAMETERS: NUMBER OF VIEWS: One view. TECHNIQUE: Single frontal radiographic view of the chest acquired. RADIATION DOSE: NA LIMITATIONS: None. FINDINGS: LUNGS AND PLEURA: There is a dense opacity in the left base that obscures the contour of t he left hemidiaphragm and blunts the left costophrenic sulcus. The curvilinear opacity that extends from the left hilum along the interlobar fissure could represent fluid within the fissure or a band o f subsegmental atelectasis. There are multifocal airspace opacities in the right upper and right low er lobes. There is no pneumothorax. MEDIASTINUM AND HILAR STRUCTURES: Stable mediastinal and hilar contours. HEART AND VASCULAR STRUCTURES: The cardiac silhouette and pulmonary vasculature within normal limits given the low inspiratory lung volumes. BONES: No acute findings. HARDWARE: The tip of the left subclavian vein approach port projects within the left brachiocephalic vein. OTHER: No other finding. IMPRESSION: 1. Dense opacity in the left base that could represent a combination of pleural fluid, a telectasis and/or consolidation. 2. Multifocal airspace opacities in the right upper and right lower lobes - correlate with clinical f indings to exclude pneumonia. TECHNICAL DOCUMENTATION: JOB ID: [id number] [employer]- All Rights Reserved Reading location - IP/workstation name: [email or web address]
--- NOTE | 2019-08-09 10:28 | EKG REPORT ---
SEVERITY:- ABNORMAL ECG - SINUS TACHYCARDIA DIFFUSE NONSPECIFIC ST-T CHANGES LA ABNORMALITY : Confirmed by: Willy Troncoso MD 09-Aug-2019 10:27:07
[2019-08-09] MEDS ORDERED: CEFTRIAXONE 2 GM/D5W RTU 2 GM/50 ML RTUPB IV ONE (11:11)
[2019-08-09] MEDS ORDERED: ONDANSETRON HCL INJ/PF 4 MG/2 ML SDV IV ONE (11:27)
[2019-08-09 11:43] LABS: APPEARANCE,URINE CLOUDY; BILIRUBIN,URINE NEGATIVE (NEGATIVE); GLUCOSE, URINE NEGATIVE (NEGATIVE); KETONES,URINE TRACE mg/dL (NEGATIVE); LEUKOCYTE ESTERASE,URINE LARGE (NEGATIVE); NITRITE,URINE NEGATIVE (NEGATIVE); PROTEIN,URINE 100 mg/dL (NEGATIVE); URINE SPECIFIC GRAVITY 1.018
[2019-08-09 11:44] LABS: COLOR,URINE YELLOW
[2019-08-09 11:55] LABS: URINE AMPHETAMINES SCREEN NEGATIVE; URINE BARBITURATES SCREEN NEGATIVE; URINE BENZODIAZEPINES SCREEN NEGATIVE; URINE COCAINE SCREEN NEGATIVE; URINE MARIJUANA (THC) SCREEN NEGATIVE; URINE METHADONE SCREEN NEGATIVE; URINE PHENCYCLIDINE SCREEN NEGATIVE
[2019-08-09] MEDS ORDERED: ONDANSETRON HCL INJ/PF 4 MG/2 ML SDV IV PRN (12:30)
[2019-08-09] MEDS ORDERED: IPRATROPIUM/ALBUTEROL 0.5-2.5 MG/3 ML AMPUL NEB PRN (12:30)
[2019-08-09] MEDS ORDERED: NORMAL SALINE 1000 ML 1,000 ML IV PRN (12:30)
[2019-08-09] MEDS ORDERED: MORPHINE SULFATE 10 MG/ML INJ IV PRN (12:34)
[2019-08-09] MEDS ORDERED: LORAZEPAM INJ 2 MG/1 ML VIAL ONE (13:39)
[2019-08-09] MEDS ORDERED: PIPERACILLIN/TAZOBACTAM 3.375 GM VIAL IV ONE (13:46)
[2019-08-09] MEDS ORDERED: LORAZEPAM INJ 2 MG/1 ML VIAL IV ONE (13:54)
--- NOTE | 2019-08-09 17:27 | PDOC H&P ---
History of Present Illness Admission Date/PCP: 08/09/19 13:00 CHRISTINA BADLWIN MD History of Present Illness: ISIS GATES is a 58 year old female with a history of a very large tumor in her abdomen and pelvis as a result of stage IV colon cancer who was just discharged 2 days ago after being here for nausea and vomiting. The tumor is so big it takes up space in her abdomen and she has a hard time keeping food and liquids down. At the time she was discharged she was not nauseated anymore and was trying to eat and drink but it would occasionally spit food and liquids back up because of just was not room in her abdomen. We did a paracentesis on her a few days before she left there was only about 400 mL's was taken off. She was on palliative chemotherapy, but discussions were had with her about hospice and comfort measures. She did not want to do that. Apparently when she first found out she had a tumor in her abdomen she refused to let anyone do any surgery and so is progressed despite treatment. When she went home 2 days ago, she was advised not to resume her palliative chemotherapy. She was able to hold down foods and liquids for the most part, as long as it was soft foods and in small amounts. The patient is not able to provide much of the history, but EMS was ca lled because she was obtunded. Apparently her room air pulse oximetry was in the low 70s, and her blood pressure was extremely low as well, documented as being in the 50s and 60s systolic. She was put on some oxygen and her blood pressure did respond to some IV fluids. Chest x-ray shows an old left pleural effusion with evidence of a new infiltrate in the right upper lobe. My suspicion is that she probably aspirated. She likes to lay down flat in the bed instead of propped up as we have recommended, and she most likely tried to eat or drink something and it came back up on her. She is being admitted for antibiotics and IV fluids, as well as revision of her goals of care. Past Medical History Cardiac Medical History: Reports: Hypertension Denies: Atrial Fibrillation, Congestive Heart Failure, Coronary Artery Disease, DVT, Myocardial Infarction, Hyperlipidema, Pulmonary Embolism Pulmonary Medical History: Denies: Asthma, Bronchitis, Chronic Obstructive Pulmonary Disease (COPD), Pneumonia, Sleep Apnea Neurological Medical History: Reports: Seizures - Last episode 1 or 2 years ago. Never on antiepileptic. Endocrine Medical History: Denies: Diabetes Mellitus Type 1, Diabetes Mellitus Type 2, Hyperthyroidism, Hypothyroidism Malignancy Medical History: Reports: Colorectal Cancer - Stage IV GI Medical History: Reports: Gastroesophageal Reflux Disease Denies: Cirrhosis, Hepatitis Musculoskeltal Medical History: Denies: Arthritis Psychiatric Medical History: Reports: Depression Hematology: Denies: Anemia Past Surgical History Past Surgical History: Reports: Section, Other - Ureteral stent implants for hydronephrosis secondary to tumor mass Denies: Hysterectomy Social History Smoking Status: Unknown if Ever Smoked Frequency of Alcohol Use: Social Hx Recreational Drug Use: No Drugs: None Hx Prescription Drug Abuse: No - Advance Directive Resuscitation Status: Do Not Resuscitate Family History Family History: Reviewed & Not Pertinent Parental Family History Reviewed: No - Unable to obtain Children Family History Reviewed: No - Unable to obtain Sibling(s) Family History Reviewed.: No - Unable to obtain Medication/Allergy Home Medications: Metoclopramide HCl [Reglan 10 mg Tablet] 10 mg PO AC 08/09/19 Ondansetron HCl [Zofran 4 mg Tablet] 4 mg PO Q4HP PRN 08/09/19 Oxycodone HCl/Acetaminophen [Percocet 5-325 mg Tablet] 1 tab PO Q4 08/09/19 Allergies/Adverse Reactions: No Known Allergies Allergy (Verified 06/21/17 15:55) Review of Systems ROS unobtainable: Due to mental status Physical Exam Vital Signs: Temp Pulse Resp BP Pulse Ox 100.6 F H 102 H 27 H 109/96 H 98 08/09/19 09:22 08/09/19 15:52 08/09/19 16:01 08/09/19 15:44 08/09/19 15:52 Intake & Output 08/08/19 08/09/19 08/10/19 06:59 06:59 06:59 Intake Total 1000 Balance 1000 Weight 65.771 kg General appearance: PRESENT: disheveled, severe distress, thin Head exam: PRESENT: atraumatic, normocephalic Eye exam: ABSENT: conjunctival injection, nystagmus, scleral icterus Ear exam: PRESENT: normal external ear exam Mouth exam: PRESENT: dry mucosa, neck supple Teeth exam: PRESENT: poor dentation Neck exam: PRESENT: full ROM. ABSENT: carotid bruit, JVD, lymphadenopathy, meningismus, tenderness, thyromegaly Respiratory exam: PRESENT: crackles - Right upper lobe, decreased breath sounds - Left lower lung field, unlabored. ABSENT: accessory muscle use, chest wall tenderness, prolonged expiratory phas, rhonchi, symmetrical, tachypnea, wheezes Cardiovascular exam: PRESENT: tachycardia Pulses: PRESENT: normal carotid pulses Vascular exam: PRESENT: other - Somewhat delayed capillary refill GI/Abdominal exam: PRESENT: distended, firm, hypoactive bowel sounds, mass. ABSENT: guarding, rebound, tenderness Extremities exam: ABSENT: clubbing, pedal edema Musculoskeletal exam: PRESENT: other - She has evidence of diffuse muscle wast ing. ABSENT: deformity Neurological exam: PRESENT: awake, oriented to person. ABSENT: oriented to place, oriented to situation Psychiatric exam: PRESENT: flat affect Skin exam: PRESENT: dry, warm, other - Tenting of the skin Results Laboratory Results: 08/09/19 09:05 08/09/19 09:05 08/09/19 08/09/19 08/09/19 09:05 09:05 09:05 WBC 14.3 H RBC 2.88 L Hgb 8.1 L Hct 26.3 L MCV 91 D MCH 28.2 MCHC 30.9 L RDW 18.5 H Plt Count 256 Seg Neutrophils % 87.1 H VBG pH VBG pCO2 VBG HCO3 VBG Base Excess Sodium 148.1 H Potassium 3.0 L* Chloride 105 Carbon Dioxide 24 Anion Gap 19 BUN 49 H Creatinine 2.32 H Est GFR ( Amer) 26 L Glucose 72 L Lactic Acid Cancelled Calcium 8.2 L Magnesium 1.8 Total Bilirubin 0.5 AST 16 Alkaline Phosphatase 46 Total Protein 6.1 L Albumin 2.8 L Urine Color Urine Appearance Urine pH Ur Specific [place] Urine Protein Urine Glucose (UA) Urine Ketones Urine Blood Urine Nitrite Ur Leukocyte Esterase Urine WBC (Auto) Urine RBC (Auto) 08/09/19 08/09/19 08/09/19 09:05 09:05 11:19 WBC RBC Hgb Hct MCV MCH MCHC RDW Plt Count Seg Neutrophils % VBG pH 7.35 VBG pCO2 53.5 VBG HCO3 28.9 VBG Base Excess 3.3 Sodium Potassium Chloride Carbon Dioxide Anion Gap BUN Creatinine Est GFR ( Amer) Glucose Lactic Acid 6.3 H Calcium Magnesium Total Bilirubin AST Alkaline Phosphatase Total Protein Albumin Urine Color YELLOW Urine Appearance CLOUDY Urine pH 5.0 Ur Specific [place] 1.018 Urine Protein 100 H Urine Glucose (UA) NEGATIVE Urine Ketones TRACE H Urine Blood SMALL H Urine Nitrite NEGATIVE Ur Leukocyte Esterase LARGE H Urine WBC (Auto) >182 Urine RBC (Auto) 29 08/09/19 13:47 WBC RBC Hgb Hct MCV MCH MCHC RDW Plt Count Seg Neutrophils % VBG pH VBG pCO2 VBG HCO3 VBG Base Excess Sodium Potassium Chloride Carbon Dioxide Anion Gap BUN Creatinine Est GFR ( Amer) Glucose Lactic Acid 5.4 H Calcium Magnesium Total Bilirubin AST Alkaline Phosphatase Total Protein Albumin Urine Color Urine Appearance Urine pH Ur Specific [place] Urine Protein Urine Glucose (UA) Urine Ketones Urine Blood Urine Nitrite Ur Leukocyte Esterase Urine WBC (Auto) Urine RBC (Auto) Impressions: Chest X-Ray 08/09/19 09:35 IMPRESSION: 1. Dense opacity in the left base that could represent a combination of pleural fluid, atelectasis and/or consolidation. 2. Multifocal airspace opacities in the right upper and right lower lobes - correlate with clinical findings to exclude pneumonia. Assessment and Plan - Diagnosis (1) Sepsis Qualifiers: Sepsis type: sepsis due to unspecified organism Sepsis acute organ dysfunction status: with acute organ dysfunction Severe sepsis acute organ dysfunction type: acute renal failure Acute renal failure type: unspecified Severe sepsis shock status: without septic shock Qualified Code(s): A41.9 - Sepsis, unspecified organism; R65.20 - Severe sepsis without septic shock; N17.9 - Acute kidney failure, unspecified Is this a current diagnosis for this admission?: Yes Plan: Blood pressure did respond to fluids. This was due to aspiration pneumonia. We will continue to give IV fluids and monitor organ function. (2) Aspiration pneumonia Qualifiers: Aspiration pneumonia type: due to vomit Laterality: right Lung location: upper lobe of lung Qualified Code(s): J69.0 - Pneumonitis due to inhalation of food and vomit Is this a current diagnosis for this admission?: Yes Plan: We will start empirically on Zosyn, blood cultures are pending. She is aspirating because there is no longer any room in her abdomen for food or liquids to pass through her GI tract because of the giant tumor in her abdomen and pelvis. (3) Acute kidney injury Is this a current diagnosis for this admission?: Yes Plan: Due to poor p.o. intake and sepsis. We will give her some IV fluids and monitor her urine output and renal function. (4) Dehydration Is this a current diagnosis for this admission?: Yes Plan: IV fluids as noted above (5) Protein calorie malnutrition Qualifiers: Protein-calorie malnutrition severity: unspecified severity Qualified Code(s): E46 - Unspecified protein-calorie malnutrition Is this a current diagnosis for this admission?: Yes Plan: Her BMI is falsely elevated because of the giant tumor that occupies her abdomen and pelvis. If that were removed, I am certain her BMI would probably be much less, likely under 18. I would estimate the mass of the tumor at approximately 10 to 12 kg. (6) Stage IV carcinoma of colon Is this a current diagnosis for this admission?: Yes Plan: Currently the patient is not in any condition to make any decisions for her care. Her proxy is her daughter, also named Isis. The daughter lives in [place] and I spoke with her on the phone. She is currently in the car and on her way here. I told her that my opinion was that we need to have a serious discussion about the patient's status and the plan of her care. The patient's sisters were here with her, and they told me that they believe she should be on hospice. When I spoke with the daughter on the telephone, she told me that the patient would not want to have CPR or measures to restart her heart if it were to stop, and that she would not want to be intubated or put on the ventilator, so she wants her CODE STATUS to be DNR/DNI. I also contacted her oncologist Dr. Mitchell to notify her that the patient was back in the hospital. - Time Time Spent with patient: 35 or more minutes - Inpatient Certification Based on my medical assessment, after consideration of the patient's comorbidities, presenting symptoms, or acuity I expect that the services needed warrant INPATIENT care.: Yes I certify that my determination is in accordance with my understanding of Medicare's requirements for reasonable and necessary INPATIENT services [42 CFR 412.3e].: Yes Medical Necessity: Failure to Improve With Outpatient Therapy, Need Close Monitoring Due to Risk of Patient Decompensation, Need For IV Fluids
[2019-08-09] MEDS ORDERED: INFLUENZA QUAD (6MOS+) 2019-20 VAC 0.5 ML SYR IM ONE (18:06)
[2019-08-09] MEDS: POTASSI CL 20 MEQ/50 ML RIDER 20 MEQ/50 ML RTUPB IV SCH ×3 (18:45→23:14)
[2019-08-09] MEDS: PIPERACILLIN SODIUM/TAZOBACTAM 3.375 GM in NORMAL SALINE 100 ML IV SCH ×2 (18:45→23:14)
[2019-08-09 23:53] VITALS: BP 46/26
[2019-08-10] MEDS ORDERED: ENOXAPARIN SODIUM INJ 30 MG/0.3 ML DISP.SYRIN SUBCUT SCH (10:00)
--- NOTE | 2019-08-18 17:44 | Death Summary ---
Summary Date : 08/10/19 Time of :: 00:45 Autopsy: No Resuscitation Status: Do Not Resuscitate - Final Diagnosis (1) Sepsis Is this a current diagnosis for this admission?: Yes (2) Aspiration pneumonia Is this a current diagnosis for this admission?: Yes (3) Acute kidney injury Is this a current diagnosis for this admission?: Yes (4) Dehydration Is this a current diagnosis for this admission?: Yes (5) Protein calorie malnutrition Is this a current diagnosis for this admission?: Yes (6) Stage IV carcinoma of colon Is this a current diagnosis for this admission?: Yes Hospital Course:: This is a 58-year-old female with history of stage IV colon cancer who had been progressively declining over time and had not sought treatment, and by the time she started showing up in the hospital it progressed beyond the point which treatment would be effective. She was recently discharged home because she did not want any further treatment beyond some help with emesis and nausea. She came back in the hospital and we were able to make contact with her daughter who is her medical power of research attorney. When her daughter got here the patient was encephalopathic as she had been on admission. The entire family was in agreement that the patient would not want any further treatment and they were planning to go home the next day on hospice. However, the patient's condition deteriorated and the family did not want any further aggressive intervention, and the patient at 0045 hours with family at bedside.
== END 2019-08-10 02:12 | DRG 871 ==
LOC: ER 08:41 → EH 13:00 → 3S 16:44
PROVIDERS: ADMIT Family Medicine; ATTEND Family Medicine
DX: A41.9 Sepsis, unspecified organism (principal); J69.0 Pneumonitis due to inhalation of food and vomit; C19 Malignant neoplasm of rectosigmoid junction; N17.9 Acute kidney failure, unspecified; C78.6 Secondary malignant neoplasm of retroperitoneum and peritoneum; E46 Unspecified protein-calorie malnutrition; Z68.1 Body mass index [BMI] 19.9 or less, adult; R65.20 Severe sepsis without septic shock; E86.0 Dehydration; Z51.5 Encounter for palliative care; I10 Essential (primary) hypertension; K21.9 Gastro-esophageal reflux disease without esophagitis; F32.9 Major depressive disorder, single episode, unspecified; Z96.0 Presence of urogenital implants; F17.200 Nicotine dependence, unspecified, uncomplicated; D64.9 Anemia, unspecified; Z79.899 Other long term (current) drug therapy
CPT/HCPCS: 36415; 71045; 80053; 80307; 81001; 82803; 82962; 83605; 83735; 85025; 87040; 87077; 87150; 93005; 93010; 96360; 99285; J2060; J2270; J2405; J2543; J3480; J7030; J7050